=== PATIENT | male | born 1945 | race Caucasian/White ===

== ENCOUNTER 2017-03-05 14:40 | Inpatient (IN) | payer OTHER, MEDICARE ==
[2017-03-05 14:52] LABS: Glucose,Whole Blood 138 mg/dL (75-99)
[2017-03-05] MEDS ORDERED: SODIUM CHLORIDE 0.9% 1,000 ML IV STA (15:07)
--- NOTE | 2017-03-05 15:37 | CT ---
EXAMINATION TYPE: CT brain wo con DATE OF EXAM: 03/05/2017 COMPARISON: 09/06/2015 HISTORY: Patient complains of episodes of memory loss. CT DLP: 825.3 mGycm Automated exposure control for dose reduction was used. FINDINGS: Mild to moderate generalized degenerative change with faint periventricular low attenuation which cheli ears similar to the previous exam. Remote microvascular ischemia most likely etiology. No mass effect or midline shift. No acute intracranial hemorrhage. Calvarium intact. Intracranial vascular calcifications are seen. IMPRESSION: DEGENERATIVE AND NONSPECIFIC WHITE MATTER CHANGE. DIFFERENTIAL DIAGNOSIS WOULD INCLUDE REMOTE MICROVA SCULAR ISCHEMIA. CORRELATE CLINICALLY
--- NOTE | 2017-03-05 15:38 | XR ---
EXAMINATION TYPE: XR chest 2V DATE OF EXAM: 03/05/2017 COMPARISON: Prior chest x-ray 09/06/2015 HISTORY: Altered mental status TECHNIQUE: Frontal and lateral views of the chest are obtained. FINDINGS: There is no focal air space opacity, pleural effusion, or pneumothorax seen. The cardiac silhouette size is within normal limits. There are overlying cardiac leads and the patient is rotated . Prominent lung volumes suggests underlying COPD. The osseous structures are intact. IMPRESSION: No acute cardiopulmonary process.
[2017-03-05 15:39] LABS: Basophils % (A) 0 %; CH 29.4; CHCM 34.7; Eosinophils # (A) 0.1 k/uL (0-0.7); Eosinophils % (A) 1 %; HCT 48.5 % (39.0-53.0); HDW 2.58; HGB 17.1 gm/dL (13.0-17.5); Luc # (Auto) 0.21; Luc % (Auto) 2; Lymphocytes # (A) 2.6 k/uL (1.0-4.8); Lymphocytes % (A) 23 %; MCHC 35.3 g/dL (31.0-37.0); MCV 84.9 fL (80.0-100.0); Mean Platelet Volume 9.2; Monocytes # (A) 0.5 k/uL (0-1.0); Monocytes % (A) 5 %; Neutrophils # (A) 7.8 k/uL (1.3-7.7); Neutrophils % (A) 69 %; RBC 5.71 m/uL (4.30-5.90); RDW 14.4 % (11.5-15.5); WBC 11.3 k/uL (3.8-10.6); WBC (Perox) 11.38
[2017-03-05 15:47] LABS: ALT 38 U/L (21-72); AST 26 U/L (17-59); Alcohol <10 mg/dL; Alkaline Phosphatase 78 U/L (38-126); Amylase 129 U/L (30-110); Anion Gap 9 mmol/L; Blood Urea Nitrogen 12 mg/dL (9-20); Calcium 9.7 mg/dL (8.4-10.2); Carbon Dioxide 28 mmol/L (22-30); Chloride 102 mmol/L (98-107); Glucose 123 mg/dL (74-99); Magnesium 1.9 mg/dL (1.6-2.3); Non-African American GFR(MDRD) >60 (>60 ml/min/1.73 sqM); Potassium 3.7 mmol/L (3.5-5.1); Sodium 139 mmol/L (137-145); Total Bilirubin 0.7 mg/dL (0.2-1.3); Total Protein 7.6 g/dL (6.3-8.2)
[2017-03-05 15:49] LABS: Creatine Kinase 62 U/L (55-170); Partial Thromboplastin Time 24.6 sec (22.0-30.0); Prothrombin Time 10.2 sec (9.0-12.0)
[2017-03-05 16:03] LABS: Creatine Kinase MB 0.5 ng/mL (0.0-2.4); Troponin I <0.012 ng/mL (0.000-0.034)
--- NOTE | 2017-03-05 16:44 | ED ---
Neuro HPI - General Chief Complaint: Neuro Symptoms/Deficit Stated Complaint: memory loss/poss stroke Time Seen by Provider: 03/05/17 14:40 Source: patient, RN notes reviewed Mode of arrival: wheelchair Limitations: no limitations - History of Present Illness Is the patient presenting with stroke symptoms?: No Initial Comments: This is a 71-year-old male was brought in for evaluation for possible CVA. He had episode of confusion with lip smacking no definite tonic-clonic activity. His left arm became stiff this lasted less than 10 minutes he had an episode yesterday lasted 10 minutes with a similar episode in about 40 minutes prior to arrival he had a repeat episode of the same thing he was confused afterwards currently he is awake alert oriented 3. He had a workup in the past for possible stroke which was negative. He has no known history of seizure disorder. He does admit to drinking beer daily nothing out of the ordinary recently however no head trauma no fevers chills nausea vomiting sweats no head or neck pain he did have a frontal headache however earlier today no other complaints - Related Data Home Medications: Home Medications Medication Instructions Recorded Confirmed Albuterol Inhaler [Ventolin Hfa 2 puff INHALATION RT-Q6H PRN 09/06/15 03/05/17 Inhaler] Allopurinol [Zyloprim] 200 mg PO DAILY 09/06/15 03/05/17 Cholecalciferol [Vitamin D3] 400 unit PO DAILY 09/06/15 03/05/17 Fish Oil/Dha/Epa [Fish Oil 1,200 1 cap PO DAILY 09/06/15 03/05/17 mg Fish Oil] Lisinopril-Hctz 20-25 mg 1 tab PO DAILY 09/06/15 03/05/17 [Zestoretic 20-25] Multivit-Mins/Iron/Folic/Lycop 1 tab PO DAILY 09/06/15 03/05/17 [Centrum Men's Tablet] Atorvastatin [Lipitor] 40 mg PO HS 03/05/17 03/05/17 Budesonide [Pulmicort Flexhaler] 2 puff INHALATION RT-BID 03/05/17 03/05/17 HYDROcodone/APAP 10-325MG [[place] 1 tab PO QID PRN 03/05/17 03/05/17 10-325] amLODIPine [Norvasc] 10 mg PO DAILY 03/05/17 03/05/17 Allergies/Adverse Reactions: Allergies Allergy/AdvReac Type Severity Reaction Status Date / Time No Known Allergies Allergy Verified 03/05/17 15:32 Review of Systems ROS Statement: Those systems with pertinent positive or pertinent negative responses have been documented in the HPI. ROS Other: All systems not noted in ROS Statement are negative. General Exam - General Exam Comments Initial Comments: This is a well-developed well-nourished awake alert oriented times 3 male Limitations: no limitations General appearance: alert, in no apparent distress Head exam: Present: atraumatic, normocephalic, normal inspection Eye exam: Present: normal appearance, PERRL, EOMI. Absent: scleral icterus, conjunctival injection, periorbital swelling ENT exam: Present: normal exam, mucous membranes moist Neck exam: Present: normal inspection. Absent: tenderness, meningismus, lymphadenopathy Respiratory exam: Present: normal lung sounds bilaterally. Absent: respiratory distress, wheezes, rales, rhonchi, stridor Cardiovascular Exam: Present: regular rate, normal rhythm, normal heart sounds. Absent: systolic murmur, diastolic murmur, rubs, gallop, clicks GI/Abdominal exam: Present: soft, normal bowel sounds. Absent: distended, tenderness, guarding, rebound, rigid Extremities exam: Present: normal inspection, full ROM, normal capillary refill. Absent: tenderness, pedal edema, joint swelling, calf tenderness Back exam: Present: normal inspection Neurological exam: Present: alert, oriented X3, CN II-XII intact Psychiatric exam: Present: normal affect, normal mood Skin exam: Present: warm, dry, intact, normal color. Absent: rash Stroke MDM - Lab Data Result diagrams: 03/05/17 14:54 03/05/17 14:54 Lab Results 03/05/17 03/05/17 03/05/17 Range/Units 14:51 14:54 14:54 WBC (3.8-10.6) k/uL RBC (4.30-5.90) m/uL Hgb (13.0-17.5) gm/dL Hct (39.0-53.0) % MCV (80.0-100.0) fL MCH (25.0-35.0) pg MCHC (31.0-37.0) g/dL RDW (11.5-15.5) % Plt Count (150-450) k/uL Neutrophils % % Lymphocytes % % Monocytes % % Eosinophils % % Basophils % % Neutrophils # (1.3-7.7) k/uL Lymphocytes # (1.0-4.8) k/uL Monocytes # (0-1.0) k/uL Eosinophils # (0-0.7) k/uL Basophils # (0-0.2) k/uL PT (9.0-12.0) sec INR (<1.2) APTT (22.0-30.0) sec Sodium 139 (137-145) mmol/L Potassium 3.7 (3.5-5.1) mmol/L Chloride 102 (98-107) mmol/L Carbon Dioxide 28 (22-30) mmol/L Anion Gap 9 mmol/L BUN 12 (9-20) mg/dL Creatinine 0.67 (0.66-1.25) mg/dL Est GFR (MDRD) Af Amer >60 (>60 ml/min/1.73 sqM) Est GFR (MDRD) Non-Af >60 (>60 ml/min/1.73 sqM) Glucose 123 H (74-99) mg/dL POC Glucose (mg/dL) 138 H (75-99) mg/dL POC Glu Software Quality Specialist Rani Horner Calcium 9.7 (8.4-10.2) mg/dL Magnesium 1.9 (1.6-2.3) mg/dL Total Bilirubin 0.7 (0.2-1.3) mg/dL AST 26 (17-59) U/L ALT 38 (21-72) U/L Alkaline Phosphatase 78 (38-126) U/L Total Creatine Kinase 62 (55-170) U/L CK-MB (CK-2) 0.5 (0.0-2.4) ng/mL CK-MB (CK-2) Rel Index 0.8 Troponin I <0.012 (0.000-0.034) ng/mL Total Protein 7.6 (6.3-8.2) g/dL Albumin 4.6 (3.5-5.0) g/dL Amylase 129 H (30-110) U/L Lipase 1985 H (23-300) U/L TSH 2.950 (0.465-4.680) mIU/L Serum Alcohol <10 mg/dL 03/05/17 03/05/17 Range/Units 14:54 14:54 WBC 11.3 H (3.8-10.6) k/uL RBC 5.71 (4.30-5.90) m/uL Hgb 17.1 (13.0-17.5) gm/dL Hct 48.5 (39.0-53.0) % MCV 84.9 (80.0-100.0) fL MCH 30.0 (25.0-35.0) pg MCHC 35.3 (31.0-37.0) g/dL RDW 14.4 (11.5-15.5) % Plt Count 213 (150-450) k/uL Neutrophils % 69 % Lymphocytes % 23 % Monocytes % 5 % Eosinophils % 1 % Basophils % 0 % Neutrophils # 7.8 H (1.3-7.7) k/uL Lymphocytes # 2.6 (1.0-4.8) k/uL Monocytes # 0.5 (0-1.0) k/uL Eosinophils # 0.1 (0-0.7) k/uL Basophils # 0.0 (0-0.2) k/uL PT 10.2 (9.0-12.0) sec INR 1.0 (<1.2) APTT 24.6 (22.0-30.0) sec Sodium (137-145) mmol/L Potassium (3.5-5.1) mmol/L Chloride (98-107) mmol/L Carbon Dioxide (22-30) mmol/L Anion Gap mmol/L BUN (9-20) mg/dL Creatinine (0.66-1.25) mg/dL Est GFR (MDRD) Af Amer (>60 ml/min/1.73 sqM) Est GFR (MDRD) Non-Af (>60 ml/min/1.73 sqM) Glucose (74-99) mg/dL POC Glucose (mg/dL) (75-99) mg/dL POC Glu Software Quality Specialist ID Calcium (8.4-10.2) mg/dL Magnesium (1.6-2.3) mg/dL Total Bilirubin (0.2-1.3) mg/dL AST (17-59) U/L ALT (21-72) U/L Alkaline Phosphatase (38-126) U/L Total Creatine Kinase (55-170) U/L CK-MB (CK-2) (0.0-2.4) ng/mL CK-MB (CK-2) Rel Index Troponin I (0.000-0.034) ng/mL Total Protein (6.3-8.2) g/dL Albumin (3.5-5.0) g/dL Amylase (30-110) U/L Lipase (23-300) U/L TSH (0.465-4.680) mIU/L Serum Alcohol mg/dL - NIH Stroke Scale 1a. Level of Consciousness: (0) alert 1b. LOC Questions: (0) answers correctly 1c. LOC Commands: (0) performs tasks correctly 2. Best Gaze: (0) normal 3. Visual: (0) no visual loss 4. Facial Palsy: (0) normal symmetrical movement 5a. Motor Arm Left: (0) no drift 5b. Motor Arm Right: (0) no drift 6a. Motor Leg Left: (0) no drift 6b. Motor Leg Right: (0) no drift 7. Limb Ataxia: (0) absent 8. Sensory: (0) normal 9. Best Language: (0) no aphasia 10. Dysarthria: (0) normal 11. Extinction/Inattention: (0) no abnormality - Thrombolytic Inclusion/Exclusion Thrombolytic Contraindications: Rapidly Improving s/s - Medical Decision Making The patient remains awake alert oriented 3 at did discuss the case with the patient's multiple family members also did review the findings with family members. I also discussed case with Dr. Tipton who did come the emergency department see the patient. He will be admitted for evaluation by neurology the presentation is suspicious for seizure disorder. He doesn't just have evidence of pancreatitis likely on the basis of his alcohol consumption. - EKG Data -: EKG Interpreted by Me EKG shows normal: sinus rhythm (Sinus tachycardia rate of 105 DE interval 164 QRS 94 QT/QTC 3:[address]-T wave changes are seen.) Past Medical History Past Medical History: COPD, Hyperlipidemia, Hypertension, Memory Impairment, Pneumonia Additional Past Medical History / Comment(s): bronchitis, enlarged heart,tia's, exposure to agent orange History of Any Multi-Drug Resistant Organisms: None Reported Past Surgical History: No Surgical Hx Reported Additional Past Surgical History / Comment(s): pt denies any sx history Past Anesthesia/Blood Transfusion Reactions: No Reported Reaction Additional Past Anesthesia/Blood Transfusion Reaction / Comment(s): clausterphobia Past Psychological History: Depression Smoking Status: Current every day smoker - Past Family History Father Family Medical History: Myocardial Infarction ([place]) Additional Family Medical History / Comment(s): from mi at age 66 Mother Additional Family Medical History / Comment(s): mom is 86 and is heathyl- had gallbladder out. Course Vital Signs 03/05/17 03/05/17 03/05/17 14:41 15:41 17:00 Temperature 97.8 F 100.3 F H Pulse Rate 105 H 95 90 Respiratory 18 16 20 Rate Blood Pressure 186/88 160/87 164/86 O2 Sat by Pulse 94 L 96 96 Oximetry 03/05/17 18:00 Temperature Pulse Rate 92 Respiratory 20 Rate Blood Pressure 162/82 O2 Sat by Pulse 99 Oximetry - Reevaluation(s) Reevaluation #1: 03/05/17 18:50 Reevaluation patient reveals no further episodes. Reevaluation #2: 03/05/17 18:52 We did discuss smoking cessation we did discuss risks and benefits. The conversation lasted 3.1 minutes Disposition Clinical Impression: Seizure, Pancreatitis, Smoker Disposition: ADMITTED IP TO THIS [facility] Condition: Stable Referrals: Santiago Jackson DO [Primary Care Provider] - 1-2 days
[2017-03-05] MEDS ORDERED: NICOTINE 21MG/24HR PATCH TRANSDERM STA ×2 (17:46→18:08)
--- NOTE | 2017-03-05 17:57 | P.HPIM ---
History of Present Illness This is a 71-year-old male for an episode of confusion with lip smacking, and a stiff right arm. Patient apparently was having these symptoms never had a fall for about any year but they have become more frequent lately patient has almost 3 episodes.. patient has mild confusion lasting for few minutes after the episode denied any loss of bowel or bladder continence denied any loss of consciousness patient denied any aura. Patient denies any family history of brain tumors. Denied any fever but patient does have low-grade fever here in the hospital patient denied any abdominal pain does have elevated lipase. currently he is awake alert oriented 3. He had a workup in the past for possible stroke which was negative. He has no known history of seizure disorder. He does admit to drinking beer daily nothing out of the ordinary recently however no head trauma no fevers chills nausea vomiting sweats no head or neck pain he did have a frontal headache however earlier today no other complaints. Patient denied any dysuria patient had a cough runny nose. Chest x -ray did not show any significant abnormality UDA is still not available yet. Patient did have a low-grade fever. Review of Systems REVIEW OF SYSTEMS: CONSTITUTIONAL: No fever, no malaise, no fatigue. HEENT: No recent visual problems or hearing problems. Denied any sore throat. CARDIOVASCULAR: No chest pain, orthopnea, PND, no palpitations, no syncope. PULMONARY: No shortness of breath, no cough, no hemoptysis. GASTROINTESTINAL: No diarrhea, no nausea, no vomiting, no abdominal pain. Normoactive bowel sounds. NEUROLOGICAL: No weakness no weakness, no numbness, patient did have light headache. HEMATOLOGICAL: Denies any bleeding or petechiae. GENITOURINARY: Denies any burning micturition, frequency, or urgency. MUSCULOSKELETAL/RHEUMATOLOGICAL: Denies any joint pain, swelling, or any muscle pain. ENDOCRINE: Denies any polyuria or polydipsia. The rest of the 14-point review of systems is negative. Past Medical History Past Medical History: COPD, Hyperlipidemia, Hypertension, Memory Impairment, Pneumonia Additional Past Medical History / Comment(s): bronchitis, enlarged heart,tia's, exposure to agent orange History of Any Multi-Drug Resistant Organisms: None Reported Past Surgical History: No Surgical Hx Reported Additional Past Surgical History / Comment(s): pt denies any sx history Past Anesthesia/Blood Transfusion Reactions: No Reported Reaction Additional Past Anesthesia/Blood Transfusion Reaction / Comment(s): clausterphobia Past Psychological History: Depression Smoking Status: Current every day smoker - Past Family History Father Family Medical History: Myocardial Infarction ([place]) Additional Family Medical History / Comment(s): from mi at age 66 Mother Additional Family Medical History / Comment(s): mom is 86 and is heathyl- had gallbladder out. Medications and Allergies Home Medications Medication Instructions Recorded Confirmed Type Albuterol Inhaler [Ventolin Hfa 2 puff INHALATION RT-Q6H PRN 09/06/15 03/05/17 History Inhaler] Allopurinol [Zyloprim] 200 mg PO DAILY 09/06/15 03/05/17 History Cholecalciferol [Vitamin D3] 400 unit PO DAILY 09/06/15 03/05/17 History Fish Oil/Dha/Epa [Fish Oil 1,200 1 cap PO DAILY 09/06/15 03/05/17 History mg Fish Oil] Lisinopril-Hctz 20-25 mg 1 tab PO DAILY 09/06/15 03/05/17 History [Zestoretic 20-25] Multivit-Mins/Iron/Folic/Lycop 1 tab PO DAILY 09/06/15 03/05/17 History [Centrum Men's Tablet] Atorvastatin [Lipitor] 40 mg PO HS 03/05/17 03/05/17 History Budesonide [Pulmicort Flexhaler] 2 puff INHALATION RT-BID 03/05/17 03/05/17 History HYDROcodone/APAP 10-325MG [[place] 1 tab PO QID PRN 03/05/17 03/05/17 History 10-325] amLODIPine [Norvasc] 10 mg PO DAILY 03/05/17 03/05/17 History Allergies Allergy/AdvReac Type Severity Reaction Status Date / Time No Known Allergies Allergy Verified 03/05/17 15:32 Physical Exam Vitals: Vital Signs Temp Pulse Resp BP Pulse Ox 03/05/17 15:41 100.3 F H 95 16 160/87 96 03/05/17 14:41 97.8 F 105 H 18 186/88 94 L Intake and Output 03/05/17 03/05/17 03/05/17 06:59 14:59 22:59 Other: Weight 90.718 kg Patient Weight 03/06/17 06:59 Weight 90.718 kg PHYSICAL EXAMINATION: GENERAL: The patient is alert and oriented x3, not in any acute distress. Well developed, well nourished. HEENT: Pupils are round and equally reacting to light. EOMI. No scleral icterus. No conjunctival pallor. Normocephalic, atraumatic. No pharyngeal erythema. No thyromegaly. CARDIOVASCULAR: S1 and S2 present. No murmurs, rubs, or gallops. PULMONARY: Chest is clear to auscultation, no wheezing or crackles. ABDOMEN: Soft, nontender, nondistended, normoactive bowel sounds. No palpable organomegaly. MUSCULOSKELETAL: No joint swelling or deformity. EXTREMITIES: No cyanosis, clubbing, or pedal edema. NEUROLOGICAL: Gross neurological examination did not reveal any focal deficits. SKIN: No rashes. Results CBC & Chem 7: 03/05/17 14:54 03/05/17 14:54 Labs: Abnormal Lab Results - Last 24 Hours (Table) 03/05/17 03/05/17 03/05/17 Range/Units 14:51 14:54 14:54 WBC 11.3 H (3.8-10.6) k/uL Neutrophils # 7.8 H (1.3-7.7) k/uL Glucose 123 H (74-99) mg/dL POC Glucose (mg/dL) 138 H (75-99) mg/dL Amylase 129 H (30-110) U/L Lipase 1985 H (23-300) U/L Assessment and Plan Plan: #1 possible partial seizures, new onset: Patient will be on seizure precautions , patient will be started on a when necessary Ativan for seizures. Sleep and awake EEG will be obtained MRI of the head will be up and to rule out any infectious causes are any mass lesions. Patient does not have any neck rigidity and doesn't have any signs of encephalitis or meningitis. 2 low-grade fever with leukocytosis: Source of sepsis is unknown patient is undergoing further evaluation of blood culture chest x-ray within normal limits. Urine culture will be obtained. 3 elevated lipase secondary to regular alcohol use may have pancreatitis patient will be continued on IV fluids and Protonix will be started. Nicotine abuse counseling was provided 5 hypertension 6 hyperlipidemia
[2017-03-05] MEDS ORDERED: HYDROcodone/APAP 10-325MG 1 EACH TAB PO ONE (18:46)
[2017-03-05] MEDS ORDERED: ALBUTEROL NEBULIZED 2.5 MG/3 ML INHALATION PRN (18:54)
[2017-03-05 19:36] LABS: Appearance,Urine Clear (Clear); Bilirubin,Urine Negative (Negative); Glucose,Urine (UA) Negative (Negative); Ketones,Urine Negative (Negative); Leukocyte Esterase,Urine Negative (Negative); Nitrite,Urine Negative (Negative); PH, Urine 6.5 (5.0-8.0); Protein,Urine Negative (Negative); Specific Gravity,Urine 1.006 (1.001-1.035); UA Billing (MACRO vs. MICRO) CHEM; Urobilinogen,Urine <2.0 mg/dL (<2.0)
[2017-03-05] MEDS: BUDESONIDE 1 MG/2 ML NEBU INHALATION SCH (20:45)
[2017-03-05 21:26] VITALS: BMI 38.2
[2017-03-05] MEDS: SODIUM CHLORIDE 0.9% 1,000 ML IV SCH (21:52)
[2017-03-05] MEDS: ASPIRIN 325 MG TAB PO SCH (21:52)
[2017-03-05] MEDS: ATORVASTATIN 40 MG TAB PO SCH (21:52)
[2017-03-05] MEDS: FAMOTIDINE 20 MG TAB PO SCH (21:53)
[2017-03-06] MEDS: HYDROcodone/APAP 10-325MG 1 EACH TAB PO PRN ×4 (01:21→23:31)
[2017-03-06] MEDS: SODIUM CHLORIDE 0.9% 1,000 ML IV SCH ×2 (01:24→16:10)
[2017-03-06 07:31] LABS: Cholesterol 221 mg/dL (<200); HDL Cholesterol 41 mg/dL (40-60); Triglycerides 132 mg/dL (<150)
[2017-03-06] MEDS: amLODIPine 10 MG TAB PO SCH ×3 (07:56→13:04)
[2017-03-06] MEDS: NICOTINE 21MG/24HR PATCH TRANSDERM SCH (07:57)
[2017-03-06] MEDS: ALLOPURINOL 100 MG TAB PO SCH (07:57)
[2017-03-06] MEDS: MULTIVITAMINS, THERA 1 EACH TAB PO SCH (07:58)
[2017-03-06] MEDS: LISINOPRIL-HCTZ 20-25 MG 1 EACH TAB PO SCH (07:58)
[2017-03-06] MEDS: FAMOTIDINE 20 MG TAB PO SCH ×2 (07:58→20:52)
[2017-03-06] MEDS: CHOLECALCIFEROL 400 UNIT TAB PO SCH (07:59)
[2017-03-06] MEDS ORDERED: NON-FORMULARY DRUG (Fish Oil/Dha/Epa [Fish Oil 1,200 Mg Fish Oil] 1 CAP) PO SCH (09:00)
[2017-03-06 09:20] LABS: CH 29.6; CHCM 33.5; HDW 2.53; HGB 15.3 gm/dL (13.0-17.5); MCH 29.6 pg (25.0-35.0); MCHC 33.2 g/dL (31.0-37.0); MCV 89.1 fL (80.0-100.0); Mean Platelet Volume 9.2; RBC 5.17 m/uL (4.30-5.90); RDW 14.6 % (11.5-15.5); WBC 8.8 k/uL (3.8-10.6)
[2017-03-06] MEDS: BUDESONIDE 1 MG/2 ML NEBU INHALATION SCH ×2 (09:23→20:35)
[2017-03-06 09:42] LABS: Anion Gap 4 mmol/L; Blood Urea Nitrogen 12 mg/dL (9-20); Carbon Dioxide 31 mmol/L (22-30); Chloride 106 mmol/L (98-107); Glucose 89 mg/dL (74-99); Non-African American GFR(MDRD) >60 (>60 ml/min/1.73 sqM); Potassium 3.9 mmol/L (3.5-5.1); Sodium 141 mmol/L (137-145)
--- NOTE | 2017-03-06 10:21 | MR ---
EXAMINATION TYPE: MR brain wo/w con DATE OF EXAM: 03/06/2017 COMPARISON: CT brain from yesterday. HISTORY: New onset seizure TECHNIQUE: Multiplanar, multisequence images of the brain and brainstem is performed without and with IV contras t, utilizing 20 mL intravenous MultiHance . FINDINGS: Diffusion weighted images demonstrate no evidence of a recent infarct or other diffusion ab normality. There is no worrisome extra-axial fluid collection. There is ventricular and sulcal promi nence consistent with mild diffuse age-related cerebral atrophy. There are scattered foci of T2 hyper intensity seen throughout the white matter bilaterally. Approximately 40 scattered lesions are presen t. 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 T2 coronal weighted images show hippocampal gyri to appear symmetric and felt within normal limits. Midline structures demonstrate normal morphology. The craniocervical junction appears within normal limits. Post contrast images demonstrate no abnormal enhancement. The dural venous sinuses appear pa tent. The visualized sinuses are clear and the globes are intact. IMPRESSION: There is mild diffuse cerebral atrophy and moderate chronic small vessel ischemic change appreciated. No significant finding is present to account for patient's symptoms of new onset seizure .
[2017-03-06] MEDS: ASPIRIN 325 MG TAB PO SCH (11:20)
--- NOTE | 2017-03-06 11:24 | US ---
EXAMINATION TYPE: US carotid duplex BILAT DATE OF EXAM: 03/06/2017 COMPARISON: Carotid ultrasound September 06, 2015 CLINICAL HISTORY: Stenosis. Syncope, seizures EXAM MEASUREMENTS: RIGHT: Peak Systolic Velocity (PSV) cm/sec ----- Right CCA: 64.7 ----- Right ICA: 72.4 ----- Right ECA: 72.4 ICA/CCA ratio: 1.1 RIGHT: End Diastole cm/sec ----- Right CCA: 15.3 ----- Right ICA: 30.7 ----- Right ECA: 13.1 LEFT: Peak Systolic Velocity (PSV) cm/sec ----- Left CCA: 85.8 ----- Left ICA: 84.5 ----- Left ECA: 82.2 ICA/CCA ratio: 1.0 LEFT: End Diastole cm/sec ----- Left CCA: 22.3 ----- Left ICA: 31.8 ----- Left ECA: 11.1 VERTEBRALS (direction of flow): Right Vertebral: Antegrade Left Vertebral: Antegrade No significant velocity elevations Grayscale images show minimal eccentric plaque at carotid bulb level bilaterally. Velocity measuremen ts and ratios remain within normal limits bilaterally. IMPRESSION: No hemodynamically significant stenosis is seen in either internal carotid artery.
--- NOTE | 2017-03-06 13:16 | P.DS ---
Providers Date of admission: 03/05/17 18:52 Attending physician: Ade Tipton Consults: 03/05/17 18:53 Consult Physician Routine Consulting Provider: Jenny Carl Consult Reason/Comments: Suspected seizure disorder Do you want consulting provider notified?: Yes Primary care physician: Santiago [facility] Course: Patient was admitted for possible simple partial seizure. Patient to be evaluated by neurology patient had an MRI with contrast which did not show any significant lesions. Patient will need any EEG unfortunately because of the weekend this is not being done as an inpatient. Patient will follow with neurology for outpatient EEG. Patient is insisting on discharge at this time. Patient will be discharged today once cleared by neurology and after there. Decision regarding antiseizure medication will be left in urology. And has nonspecific elevation of lipase without any symptoms of pancreatitis patient is an alcoholic extensive counseling regarding alcohol use is provided. 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 Patient will not be discharged on any antibiotics. 3 elevated lipase secondary to regular alcohol. patient doesn't have any symptoms of pancreatitis. Nicotine abuse counseling was provided 5 hypertension 6 hyperlipidemia Patient Condition at Discharge: Stable Plan - Discharge Summary New Discharge Prescriptions: No Action Allopurinol [Zyloprim] 200 mg PO DAILY Albuterol Inhaler [Ventolin Hfa Inhaler] 2 puff INHALATION RT-Q6H PRN PRN Reason: Shortness Of Breath Multivit-Mins/Iron/Folic/Lycop [Centrum Men's Tablet] 1 tab PO DAILY Cholecalciferol [Vitamin D3] 400 unit PO DAILY Lisinopril-Hctz 20-25 mg [Zestoretic 20-25] 1 tab PO DAILY Fish Oil/Dha/Epa [Fish Oil 1,200 mg Fish Oil] 1 cap PO DAILY amLODIPine [Norvasc] 10 mg PO DAILY Budesonide [Pulmicort Flexhaler] 2 puff INHALATION RT-BID HYDROcodone/APAP 10-325MG [[place] 10-325] 1 tab PO QID PRN PRN Reason: Pain Atorvastatin [Lipitor] 40 mg PO HS Discharge Medication List Albuterol Inhaler [Ventolin Hfa Inhaler] 2 puff INHALATION RT-Q6H PRN 09/06/15 [ History] Allopurinol [Zyloprim] 200 mg PO DAILY 09/06/15 [History] Cholecalciferol [Vitamin D3] 400 unit PO DAILY 09/06/15 [History] Fish Oil/Dha/Epa [Fish Oil 1,200 mg Fish Oil] 1 cap PO DAILY 09/06/15 [History] Lisinopril-Hctz 20-25 mg [Zestoretic 20-25] 1 tab PO DAILY 09/06/15 [History] Multivit-Mins/Iron/Folic/Lycop [Centrum Men's Tablet] 1 tab PO DAILY 09/06/15 [ History] Atorvastatin [Lipitor] 40 mg PO HS 03/05/17 [History] Budesonide [Pulmicort Flexhaler] 2 puff INHALATION RT-BID 03/05/17 [History] HYDROcodone/APAP 10-325MG [[place] 10-325] 1 tab PO QID PRN 03/05/17 [History] amLODIPine [Norvasc] 10 mg PO DAILY 03/05/17 [History] Follow up Appointment(s)/Referral(s): Santiago Jackson DO [Primary Care Provider] - 1-2 days Discharge Disposition: HOME SELF-CARE
[2017-03-06] MEDS ORDERED: levETIRAcetam IV 1,000 MG in SALINE 1 100ML.BAG IVPB STA (15:13)
[2017-03-06] MEDS: ATORVASTATIN 40 MG TAB PO SCH (20:50)
--- NOTE | 2017-03-06 21:55 | P.CNNES ---
History of Present Illness Consult date: 03/05/17 Requesting physician: Homero John Reason for Consult: Seizure Chief complaint: Mental status/seizure History of Present Illness: Patient is a 71-year-old male who was brought to the ED for possible CVA. Patient has a history of an episode of confusion with lip smacking but no tonic- clonic activity. His left arm would become stiff and lasted less than 10 minutes then had fatigue and confusion afterward for approximately 15 minutes. Patient had 2 episodes prior to presenting at the ED. Patient also states that he has altered taste sensation prior to events. Family states that during the events, the patient is non-responsive to verbal or physical stimuli. Patient's daughter is a neurodiagnostic surveillance technician and states that she witnessed one of the events and it is consistent with seizure. Episodes have been occurring in varying intensity, frequency and duration over the last 2 years, primarily occurring during nighttime hours or sleeping. In the last 2 weeks, the occurrences have now started during daytime hours and are progressing in character. Patient has not had any significant medication changes surrounding each event and the last medication change was greater than 2 weeks ago and involved blood pressure medication. Patient has been under significant personal stress in the last several days due to a of a close family member /friend and caring for his bedridden . Patient is also known to use alcohol intermittently during stress. On contact, the patient was supine in bed and resting in no acute distress, was alert and oriented 3. Patient's daughter was present at the bedside along with his mother who also provided further background information. Review of Systems Systems not noted in HPI or negative Past Medical History Past Medical History: COPD, Hyperlipidemia, Hypertension, Memory Impairment, Pneumonia Additional Past Medical History / Comment(s): bronchitis, tia's, exposure to agent orange History of Any Multi-Drug Resistant Organisms: None Reported Past Surgical History: No Surgical Hx Reported Additional Past Surgical History / Comment(s): pt denies any sx history Past Anesthesia/Blood Transfusion Reactions: No Reported Reaction Additional Past Anesthesia/Blood Transfusion Reaction / Comment(s): clausterphobia Past Psychological History: Depression Smoking Status: Current every day smoker Past Alcohol Use History: Daily Additional Past Alcohol Use History / Comment(s): 2-3 beers per day, more once per week Past Drug Use History: None Reported - Past Family History Father Family Medical History: Myocardial Infarction ([place]) Additional Family Medical History / Comment(s): from [place] at age 66 Mother Additional Family Medical History / Comment(s): mom is 88 and is healthy- had gallbladder out. Medications and Allergies Home Medications Medication Instructions Recorded Confirmed Type Albuterol Inhaler [Ventolin Hfa 2 puff INHALATION RT-Q6H PRN 09/06/15 03/05/17 History Inhaler] Allopurinol [Zyloprim] 200 mg PO DAILY 09/06/15 03/05/17 History Cholecalciferol [Vitamin D3] 400 unit PO DAILY 09/06/15 03/05/17 History Fish Oil/Dha/Epa [Fish Oil 1,200 1 cap PO DAILY 09/06/15 03/05/17 History mg Fish Oil] Lisinopril-Hctz 20-25 mg 1 tab PO DAILY 09/06/15 03/05/17 History [Zestoretic 20-25] Multivit-Mins/Iron/Folic/Lycop 1 tab PO DAILY 09/06/15 03/05/17 History [Centrum Men's Tablet] Atorvastatin [Lipitor] 40 mg PO HS 03/05/17 03/05/17 History Budesonide [Pulmicort Flexhaler] 2 puff INHALATION RT-BID 03/05/17 03/05/17 History HYDROcodone/APAP 10-325MG [[place] 1 tab PO QID PRN 03/05/17 03/05/17 History 10-325] amLODIPine [Norvasc] 10 mg PO DAILY 03/05/17 03/05/17 History Allergies Allergy/AdvReac Type Severity Reaction Status Date / Time No Known Allergies Allergy Verified 03/05/17 15:32 Physical Examination - Vital Signs Vital Signs: Vital Signs Temp Pulse Pulse Resp BP Pulse Ox 03/06/17 20:43 76 03/06/17 20:35 72 03/06/17 15:03 97.3 F L 78 16 163/97 96 03/06/17 12:17 70 16 193/87 96 03/06/17 11:17 98.0 F 66 16 175/86 97 03/06/17 07:51 97.6 F 70 18 169/85 99 03/06/17 04:00 66 18 163/86 94 L 03/06/17 01:02 96.6 F L 86 16 126/70 96 03/06/17 00:00 75 16 134/69 97 Intake and Output 03/06/17 03/06/17 03/06/17 06:59 14:59 22:59 Intake Total 360 180 Balance 360 180 Intake: Oral 360 180 Other: # Voids 1 1 Weight 113.9 kg Constitutional: AOx3, cooperative HEENT: NC/AT, no facial asymmetry is seen. Throat: Supple, no masses Respiratory: No increased work of breathing Cardiac: Regular rate and Rhythm GI: non tender, non distended Musculoskeletal: Aircraft Refueler strengths are equal bilaterally 5/5, Lower extremity strengths are equal bilaterally at 5/5. Neurological: CN II-XII in tact, patient was AOx3, speech and language are normal, no unilateralizing weakness, no seizure activity note on physical exam. Sensation was normal. Integementary: no rash, no erythema Psychiatric: mood and affect appropriate Results EEG ordered, MRI of the brain negative noted chronic small vessel ischemic disease, CT brain noted moderate small vessel ischemia. - Laboratory Findings CBC and BMP: 03/06/17 06:31 03/06/17 06:31 Abnormal Lab Findings: Abnormal Labs 03/05/17 03/05/17 03/05/17 14:51 14:54 14:54 WBC 11.3 H Neutrophils # 7.8 H Carbon Dioxide Glucose 123 H POC Glucose (mg/dL) 138 H Cholesterol LDL Cholesterol, Calc Amylase 129 H Lipase 1985 H 03/06/17 03/06/17 06:31 06:31 WBC Neutrophils # Carbon Dioxide 31 H Glucose POC Glucose (mg/dL) Cholesterol 221 H LDL Cholesterol, Calc 154 H Amylase Lipase Assessment and Plan (1) Altered mental status, unspecified Status: Acute (2) Hyperlipidemia Status: Acute (3) Seizure Status: Acute Plan: Seizure/Altered mental status: Patient's current status is most likely related to new onset seizure. Symptoms are consistent with prodrome, partial seizure with postictal period (partial complex seizure). CT and MRI of the brain note chronic small vessel ischemia. EEG is ordered. Patient started on 1000 mg IV Keppra followed by 750 mg of Keppra twice a day. Continue neuro checks every shift. Hyperlipidemia: Patient is currently taking 325 mg aspirin, Lipitor 40 mg. We will discontinue the patient's aspirin and start Plavix 75 mg daily at bedtime and continue Lipitor as previously prescribed. Status: Neurology will continue to follow him provide updates as needed or warranted. I discussed the patient's pertinent medical information with Dr. Carl. He agrees with the plan of care as implemented.
[2017-03-07] MEDS: SODIUM CHLORIDE 0.9% 1,000 ML IV SCH ×2 (02:54→14:53)
[2017-03-07 06:38] LABS: Glucose,Whole Blood 101 mg/dL (75-99)
[2017-03-07 07:41] VITALS: RESP 16; TEMP 96.9
[2017-03-07] MEDS: amLODIPine 10 MG TAB PO SCH (07:47)
[2017-03-07] MEDS: HYDROcodone/APAP 10-325MG 1 EACH TAB PO PRN (07:48)
[2017-03-07] MEDS: ALLOPURINOL 100 MG TAB PO SCH (07:49)
[2017-03-07] MEDS: LISINOPRIL-HCTZ 20-25 MG 1 EACH TAB PO SCH (07:49)
[2017-03-07] MEDS: MULTIVITAMINS, THERA 1 EACH TAB PO SCH (07:49)
[2017-03-07] MEDS: FAMOTIDINE 20 MG TAB PO SCH (07:51)
[2017-03-07] MEDS: NICOTINE 21MG/24HR PATCH TRANSDERM SCH (07:52)
[2017-03-07] MEDS: CHOLECALCIFEROL 400 UNIT TAB PO SCH (07:52)
[2017-03-07] MEDS ORDERED: CLOPIDOGREL 75 MG TAB PO SCH (09:00)
[2017-03-07] MEDS: BUDESONIDE 1 MG/2 ML NEBU INHALATION SCH (09:53)
[2017-03-07] MEDS ORDERED: DOCUSATE 100 MG CAP PO SCH (10:00)
[2017-03-07 11:13] VITALS: BP 141/80; PULSE 61
--- NOTE | 2017-03-07 15:08 | P.DS ---
Providers Date of admission: 03/05/17 18:52 Attending physician: Ade Tipton Consults: 03/05/17 18:53 Consult Physician Routine Consulting Provider: Jenny Carl Consult Reason/Comments: Suspected seizure disorder Do you want consulting provider notified?: Yes [facility] Course: Admitted for complex partial also she's her. Patient was started on Keppra. Patient had a negative MRI. If cleared by neurology patient will be discharged on 750 mg of Keppra #1 possible partial seizures, new onset 2 low-grade fever with leukocytosis: No so-so sepsis was appreciated, patient is clinically doing well no fever since yesterday evening. Patient will not be discharged on any antibiotics. 3 elevated lipase secondary to regular alcohol. patient doesn't have any symptoms of pancreatitis. Nicotine abuse counseling was provided 5 hypertension 6 hyperlipidemia Patient Condition at Discharge: Stable Plan - Discharge Summary New Discharge Prescriptions: New Clopidogrel [Plavix] 75 mg PO DAILY #30 tab levETIRAcetam [Keppra] 750 mg PO Q12HR #60 tab Continue Allopurinol [Zyloprim] 200 mg PO DAILY Albuterol Inhaler [Ventolin Hfa Inhaler] 2 puff INHALATION RT-Q6H PRN PRN Reason: Shortness Of Breath Multivit-Mins/Iron/Folic/Lycop [Centrum Men's Tablet] 1 tab PO DAILY Cholecalciferol [Vitamin D3] 400 unit PO DAILY Lisinopril-Hctz 20-25 mg [Zestoretic 20-25] 1 tab PO DAILY Fish Oil/Dha/Epa [Fish Oil 1,200 mg Fish Oil] 1 cap PO DAILY amLODIPine [Norvasc] 10 mg PO DAILY Budesonide [Pulmicort Flexhaler] 2 puff INHALATION RT-BID HYDROcodone/APAP 10-325MG [[place] 10-325] 1 tab PO QID PRN PRN Reason: Pain Atorvastatin [Lipitor] 40 mg PO HS Discharge Medication List Albuterol Inhaler [Ventolin Hfa Inhaler] 2 puff INHALATION RT-Q6H PRN 09/06/15 [ History] Allopurinol [Zyloprim] 200 mg PO DAILY 09/06/15 [History] Cholecalciferol [Vitamin D3] 400 unit PO DAILY 09/06/15 [History] Fish Oil/Dha/Epa [Fish Oil 1,200 mg Fish Oil] 1 cap PO DAILY 09/06/15 [History] Lisinopril-Hctz 20-25 mg [Zestoretic 20-25] 1 tab PO DAILY 09/06/15 [History] Multivit-Mins/Iron/Folic/Lycop [Centrum Men's Tablet] 1 tab PO DAILY 09/06/15 [ History] Atorvastatin [Lipitor] 40 mg PO HS 03/05/17 [History] Budesonide [Pulmicort Flexhaler] 2 puff INHALATION RT-BID 03/05/17 [History] HYDROcodone/APAP 10-325MG [[place] 10-325] 1 tab PO QID PRN 03/05/17 [History] amLODIPine [Norvasc] 10 mg PO DAILY 03/05/17 [History] Clopidogrel [Plavix] 75 mg PO DAILY #30 tab 03/07/17 [Rx] levETIRAcetam [Keppra] 750 mg PO Q12HR #60 tab 03/07/17 [Rx] Follow up Appointment(s)/Referral(s): Jenny Carl MD [STAFF PHYSICIAN] - 1 Week Santiago Jackson DO [Primary Care Provider] - 3 Days Discharge Disposition: HOME SELF-CARE
--- NOTE | 2017-03-07 19:33 | P.PN ---
Subjective Principal diagnosis: Altered mental status/seizurenew onset Patient is a 71-year-old being followed by neurology for seizure. Patient had a history of an episode of confusion with lip smacking but no tonic-clonic activity. His left arm would become stiff and would then become spastic and tremor which lasted less than 10 minutes, then patient had fatigue and confusion afterward for approximately 15 minutes. Patient had 2 episodes prior to presenting at the ED. Patient also states he has altered taste sensation prior to events. Family states that during the events, the patient is nonresponsive to verbal or physical stimuli. Patient's daughter is a neurodiagnostic predictive maintenance technician and states that she witnessed one of the events and is his consistent with seizure in her opinion. Episodes of been occurring and varying intensity, frequency and duration over the last 2 years, primarily occurring during nighttime hours or sleeping. The last 2 weeks, there are occurrences have now started during daytime hours and are progressing in character. Patient is not any significant medication changes surrounding each event in the last medication changes greater than 2 weeks ago and involved blood pressure medication. Patient has been under significant personal stress in the last several days due to of a close family member/friend and caring for his bedridden . Patient is also known use alcohol intermittently during stress. March 06, 2017: Patient was supine in bed, resting in no acute distress, was alert and oriented 3. Patient's daughter was present at the bedside along with his mother who also provided further background information. March 07, 2017: MRI of the brain and CT of the brain noted chronic small vessel ischemia and cerebral atrophy. EEG was ordered but has not been taken. It is scheduled for tomorrow. Patient was very persistent that he would not stay overnight for testing tomorrow. At contact, the patient was supine in bed, alert and oriented 3 and in no acute distress. Objective - Vital Signs Vital signs: Vital Signs Temp 96.9 F L 03/07/17 11:11 Pulse 61 03/07/17 11:11 Resp 16 03/07/17 11:11 BP 141/80 03/07/17 11:11 Pulse Ox 96 03/07/17 11:11 Intake & Output 03/07/17 03/07/17 03/08/17 06:59 18:59 06:59 Intake Total 1000 780 Balance 1000 780 Weight 112.1 kg Intake: IV 1000 Sodium Chloride 0.9% 1, 1000 000 ml @ 100 mls/hr IV . Q10H MUNA Rx#:[id number] Oral 780 Other: # Voids 2 3 - Exam Constitutional: AOx3, cooperative HEENT: NC/AT, no facial asymmetry is seen. Throat: Supple, no masses Respiratory: No increased work of breathing Cardiac: Regular rate and Rhythm GI: non tender, non distended Musculoskeletal: Cane Pusher strengths are equal bilaterally 5/5, Lower extremity strengths are equal bilaterally at 5/5. Neurological: CN II-XII in tact, patient was AOx3, speech and language are normal, no unilateralizing weakness, no seizure activity note on physical exam. Sensation was normal. Integementary: no rash, no erythema Psychiatric: mood and affect appropriate - Labs CBC & Chem 7: 03/06/17 06:31 03/06/17 06:31 Labs: Abnormal Lab Results - Last 24 Hours (Table) 03/07/17 Range/Units 06:29 POC Glucose (mg/dL) 101 H (75-99) mg/dL Assessment and Plan (1) Altered mental status, unspecified Status: Acute (2) Hyperlipidemia Status: Acute (3) Seizure Status: Acute Plan: Seizure/Altered mental status: Patient's current status is most likely related to new onset seizure. Symptoms are consistent with prodrome, partial seizure with postictal period (partial complex seizure). CT and MRI of the brain note chronic small vessel ischemia And cerebral atrophy. EEG is ordered for tomorrow. Patient has continued 750 mg of Keppra twice a day and has had no new occurrences since intitiation. Continue neuro checks every shift. Hyperlipidemia: Continue Plavix 75 mg daily at bedtime and continue Lipitor as previously prescribed. Status: Neurology will continue to follow him provide updates as needed or warranted. I discussed the patient's pertinent medical information with Dr. Carl. He agrees with the plan of care as implemented.
== END 2017-03-07 17:00 | disposition home or self-care (01) | DRG 101 ==
LOC: EC 14:40 → 6SEL 18:52
PROVIDERS: ADMIT Internal Medicine; ATTEND Internal Medicine
DX: G40.209 Localization-related (focal) (partial) symptomatic epilepsy and epileptic syndromes with complex partial seizures, not intractable, without status epilepticus (principal); J44.9 Chronic obstructive pulmonary disease, unspecified; I10 Essential (primary) hypertension; F32.9 Major depressive disorder, single episode, unspecified; E78.5 Hyperlipidemia, unspecified; D72.829 Elevated white blood cell count, unspecified; I67.9 Cerebrovascular disease, unspecified; R29.700 NIHSS score 0; R74.8 Abnormal levels of other serum enzymes; F10.20 Alcohol dependence, uncomplicated; R00.0 Tachycardia, unspecified; R50.9 Fever, unspecified; F40.240 Claustrophobia; R51 Headache; F17.200 Nicotine dependence, unspecified, uncomplicated; Z63.6 Dependent relative needing care at home; Z63.4 Disappearance and death of family member; Z86.19 Personal history of other infectious and parasitic diseases; Z87.09 Personal history of other diseases of the respiratory system; Z77.098 Contact with and (suspected) exposure to other hazardous, chiefly nonmedicinal, chemicals; Z86.73 Personal history of transient ischemic attack (TIA), and cerebral infarction without residual deficits; Z79.899 Other long term (current) drug therapy; Z82.49 Family history of ischemic heart disease and other diseases of the circulatory system; Z79.51 Long term (current) use of inhaled steroids; Z71.6 Tobacco abuse counseling; Z71.41 Alcohol abuse counseling and surveillance of alcoholic; Z79.891 Long term (current) use of opiate analgesic; Y90.0 Blood alcohol level of less than 20 mg/100 ml
CPT/HCPCS: 36415; 70450; 70553; 71020; 80048; 80053; 80061; 80177; 80320; 81003; 82150; 82550; 82553; 83690; 83735; 84443; 84484; 85025; 85027; 85610; 85730; 93005; 93880; 94640

== ENCOUNTER → 2017-12-07 | Outpatient (CLI) | payer OTHER, MEDICARE | END | disposition home or self-care (01) | LOC: LABWHC1 08:04 | PROVIDERS: ATTEND Psychiatry & Neurology Neurology | DX: G40.009 Localization-related (focal) (partial) idiopathic epilepsy and epileptic syndromes with seizures of localized onset, not intractable, without status epilepticus (principal) | CPT/HCPCS: 36415; 80177 ==

== ENCOUNTER → 2018-04-07 | Outpatient (CLI) | payer OTHER ==
--- NOTE | 2018-04-07 16:00 | CT ---
EXAMINATION TYPE: CT chest w con DATE OF EXAM: 04/07/2018 COMPARISON: None HISTORY: Abnormal findings in lung field CT DLP: 640.20 mGycm Automated exposure control for dose reduction was used. CONTRAST: CT scan of the chest is performed with IV Contrast, patient injected with 100 mL of Isovue 300. FINDINGS: LUNGS: The lungs are grossly clear, there is no concerning parenchymal mass or nodule identified. T here is no pleural effusion or pneumothorax seen. The tracheobronchial tree is patent. Mild left upp er lobe subpleural fibrosis. Parenchymal scarring in the region of the lingula and left lower lobe. MEDIASTINUM: There are no greater than 1 cm hilar or mediastinal lymph nodes. No pericardial effusi on is seen. Thoracic aorta is of normal caliber. The heart is not enlarged. UPPER ABDOMEN: No significant abnormality appreciated. OTHER: No additional significant abnormality is seen. IMPRESSION: 1. No evidence for mass or infiltrate.
== END | disposition home or self-care (01) ==
LOC: RADCTMAIN 15:13
DX: R91.8 Other nonspecific abnormal finding of lung field (principal)
CPT/HCPCS: 71260; Q9967

== ENCOUNTER → 2018-07-11 | Outpatient (CLI) | payer OTHER ==
[2018-07-11 12:30] LABS: Blood Urea Nitrogen 14 mg/dL (9-20)
--- NOTE | 2018-07-11 13:36 | CT ---
EXAMINATION TYPE: CT soft tissue neck wo/w con DATE OF EXAM: 07/11/2018 COMPARISON: None HISTORY: Lump to left side of neck. CT DLP: 1491 mGycm CONTRAST: CT scan of the neck is performed without and with IV Contrast, patient injected with 100 mL of Isovue 300. Contrast enhanced CT of the neck was performed from the skull base through the lung apices. Markers p laced at the site of clinical concern. AIRWAY: The supraglottic, glottic, and subglottic portions of the airway appear patent and free of mass. SALIVARY GLANDS: The submandibular and parotid glands are free of mass or inflammatory process. THYROID GLAND: No nodules or masses seen. LYMPH NODES: At the site of clinical concern There is an enlarged partially necrotic lymph node left internal jugular chain which measures 3.7 x 2.5 x 2.3 cm. No additional adenopathy greater than 1 cm identified. LUNG APICES: No nodule or mass is seen. OTHER: Vascular structures are patent. No significant degenerative change of the cervical spine. N o abscess seen. IMPRESSION:
== END | disposition home or self-care (01) ==
LOC: RADCTMAIN 11:57
DX: M99.81 Other biomechanical lesions of cervical region (principal)
CPT/HCPCS: 82565; 84520; 70492; 36415; Q9967

== ENCOUNTER → 2018-08-27 | Outpatient (CLI) | payer OTHER ==
--- NOTE | 2018-08-29 06:56 | PE ---
EXAMINATION TYPE: PET CT fusion skull to thigh DATE OF EXAM: 08/27/2018 COMPARISON: CT chest April 07, 2018. CT neck July 11, 2018. HISTORY: Head and neck cancer initial staging study after recent left neck biopsy. TECHNIQUE: Following the intravenous administration of 10.632 mCi of F-18 FDG, whole body images are performed from the skull base to the midthigh. Images are reviewed on the computer in the coronal, axial, and sagittal planes. Reconstructed rotating images are created on independent workstation and reviewed on the computer. A noncontrast CT is performed in conjunction with the PET scan. Dedicate d PET/CT imaging of the neck is also performed. SCAN: Initial Scan FINDINGS: SKULL BASE AND NECK: There is a small asymmetric round subcentimeter focus of increased hypermetabol ic uptake left tongue base laterally measuring axial image 45, max SUV is 8.83. There is redemonstration of abnormal left neck lymph node with anterior hypodense area at level of river perior hyoid bone measuring 2.9 x 2.8 cm axial image 50, max SUV is 17.59. CHEST, MEDIASTINUM, AND HILAR REGION: No areas of abnormal hypermetabolic uptake are identified. ABDOMEN AND PELVIS: No areas of abnormal hypermetabolic uptake are seen. OSSEOUS STRUCTURES: No areas of abnormal hypermetabolic uptake are identified. OTHER CT: There is coronary artery calcification and/or coronary stents present. Cardiomegaly is not ed. There is tiny pericardial effusion seen. There is [id number] underlying emphysematous change present. There is large fat-containing umbilical hernia. There are diverticula throughout the colon most prom inent in the sigmoid colon. There is moderate calcified plaque of the aorta extending into branch vessels. IMPRESSION: Primary left tongue base neoplasm poorly visualized but likely present subcentimeter in s ize. Left neck adenopathy noted may be confluent with partial necrosis. No distal metastatic disease is present.
== END | disposition home or self-care (01) ==
LOC: RADPETMAIN 11:57
PROVIDERS: ATTEND Internal Medicine Hematology & Oncology
DX: R59.0 Localized enlarged lymph nodes (principal); C47 Malignant neoplasm of peripheral nerves and autonomic nervous system
CPT/HCPCS: 78815; A9552

== ENCOUNTER 2018-10-08 10:43 | Emergency (ER) | payer OTHER ==
[2018-10-08] MEDS ORDERED: MORPHINE SULFATE 4 MG/ML SYRINGE IM STA (12:48)
--- NOTE | 2018-10-08 12:48 | ED ---
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 Patient states that since his surgery on 09/19/2018 for removal of tumor and local lymph node mets he had a NG feeding tube placed secondary to complications of the surgery causing difficulty swallowing. Pt states that a 1AM he was able to flush and use the NG tube however this morning at 9AM him or family members were unable to suction/flush the tube. Unable to get feedings. Pt does admit to tenderness at the site of NG placement, states it is sutured in place. Remaining ROS (-), patient denies any recent fever, chills, shortness of breath, chest pain, back pain, abdominal pain, nausea or vomiting, numbness or tingling, dysuria or hematuria, constipation or diarrhea, headaches or visual changes, or any other complaints. - Related Data Home Medications Medication Instructions Recorded Confirmed Albuterol Inhaler [Ventolin Hfa 2 puff INHALATION RT-Q6H PRN 09/06/15 10/08/18 Inhaler] Allopurinol [Zyloprim] 200 mg PEG/G-TUBE DAILY 09/06/15 10/08/18 Cholecalciferol [Vitamin D3] 400 unit PEG/G-TUBE DAILY 09/06/15 10/08/18 Fish Oil/Dha/Epa [Fish Oil 1,200 1 cap PEG/G-TUBE DAILY 09/06/15 10/08/18 mg Fish Oil] Lisinopril-Hctz 20-25 mg 1 tab PEG/G-TUBE DAILY 09/06/15 10/08/18 [Zestoretic 20-25] Multivit-Mins/Iron/Folic/Lycop 1 tab PEG/G-TUBE DAILY 09/06/15 10/08/18 [Centrum Men's Tablet] Atorvastatin [Lipitor] 40 mg PEG/G-TUBE HS 03/05/17 10/08/18 Budesonide [Pulmicort Flexhaler] 2 puff INHALATION RT-BID 03/05/17 10/08/18 amLODIPine [Norvasc] 10 mg PEG/G-TUBE DAILY 03/05/17 10/08/18 Clopidogrel [Plavix] 75 mg PEG/G-TUBE Q48H 10/08/18 10/08/18 levETIRAcetam [Keppra] 750 mg PEG/G-TUBE Q12HR 10/08/18 10/08/18 oxyCODONE HCL [Roxicodone] 5 - 10 mg PEG/G-TUBE Q4H PRN 10/08/18 10/08/18 Allergies Allergy/AdvReac Type Severity Reaction Status Date / Time No Known Allergies Allergy Verified 10/08/18 11:02 Review of Systems ROS Statement: Those systems with pertinent positive or pertinent negative responses have been documented in the HPI. ROS Other: All systems not noted in ROS Statement are negative. Past Medical History Past Medical History: COPD, Hyperlipidemia, Hypertension, Memory Impairment, Pneumonia Additional Past Medical History / Comment(s): bronchitis, tia's, exposure to agent orange History of Any Multi-Drug Resistant Organisms: None Reported Past Surgical History: No Surgical Hx Reported Additional Past Surgical History / Comment(s): pt denies any sx history tongue surg for ca Past Anesthesia/Blood Transfusion Reactions: No Reported Reaction Additional Past Anesthesia/Blood Transfusion Reaction / Comment(s): clausterphobia Past Psychological History: Depression Smoking Status: Former smoker Past Alcohol Use History: None Reported, Daily Past Drug Use History: None Reported - Past Family History Father Family Medical History: Myocardial Infarction (ID) Additional Family Medical History / Comment(s): from [place] at age 66 Mother Additional Family Medical History / Comment(s): mom is 88 and is healthy- had gallbladder out. General Exam - General Exam Comments Initial Comments: General: The patient is awake and alert, in no distress. Eye: +3 mm pupils are equal, round and reactive to light, extra-ocular movements are intact. No nystagmus. There is normal conjunctiva bilaterally. No signs of icterus. Ears, nose, mouth and throat: There are moist mucous membranes and no oral lesions. NG tube is in place in the left nostril. Neck: The neck is supple, there is no tenderness or JVD. Cardiovascular: There is a regular rate and rhythm. No murmur, rub or gallop is appreciated. Respiratory: Lungs are clear to auscultation, respirations are non-labored, breath sounds are equal. No wheezes, stridor, rales, or rhonchi. Gastrointestinal: Soft, non-distended, non-tender abdomen without masses or organomegaly noted. There is no rebound or guarding present. No CVA tenderness. Bowel sounds are unremarkable. Musculoskeletal: Normal ROM, no tenderness. Strength 5/5. Sensation intact. Radial pulses equal bilaterally 2+. Neurological: A&O x 3. CN II-XII intact, There are no obvious motor or sensory deficits. Coordination appears grossly intact. Speech is normal. Skin: Skin is warm and dry and no rashes or lesions are noted. Psychiatric: Cooperative, appropriate mood & affect, normal judgment. Limitations: no limitations Course Vital Signs 10/08/18 10/08/18 10/08/18 10:46 16:33 19:15 Temperature 98.5 F 98 F Pulse Rate 82 78 89 Respiratory 16 16 18 Rate Blood Pressure 119/67 128/83 124/72 O2 Sat by Pulse 95 95 96 Oximetry - Reevaluation(s) Reevaluation #1: Attempted to contact, get contact information of patient surgeon-no success. Initiated forms for transfer to [facility]. 10/08/18 Reevaluation #2: Family frustrated with wait, stating wish to leave and just drive to the [place]. 10/08/18 Reevaluation #3: Was finally called back from [facility] and spoke with Dr. Pineda- [employer] ENT surgeon for Dr. Hodge @17:49, we discussed patient case, history and presenting complaint. She was agreeable with plan of NG tube removal and replacement and outpatient f/u Wednesday as scheduled. No further instruction. We were able to remove NG tube once attending provider Dr. Roman saw patient in person and removed suture that were keeping NG tube in place. 10/08/18 18:05 Medical Decision Making - Medical Decision Making Well appearing 73-year-old male presenting today for chief complaint of NG tube tube dysfunction. We attempted to flush her and suctioned NG tube without success. Most likely distal dysfunction. attempted to contact [facility] on multiple occasions, finally after using families person cellular device, I was able to have the php consultant ENT surgeon paged. I received at call at 17:[address] Pineda, php consultant ENT surgeon for Dr. Hodge. She was agreeable with removal and replacement of NG tube for feedings. She did recommend follow-up on Wednesday as scheduled. No further orders at this time. Pt was given IV fluids, in ER labs revealed findings consistent with dehydration. At this time attending provider Dr. Roman feels patient is stable for discharge, I'm agreeable plan. Patient discharged stable condition appearing well deny quest at this time. Patient was educated on use of NG tube prior to discharge. Patient is given return parameters for any tube dysfunction or other concerning signs or symptoms. - Lab Data Result diagrams: 10/08/18 13:45 10/08/18 13:45 Lab Results 10/08/18 10/08/18 Range/Units 13:45 13:45 WBC 12.0 H (3.8-10.6) k/uL RBC 4.99 (4.30-5.90) m/uL Hgb 14.3 (13.0-17.5) gm/dL Hct 43.6 (39.0-53.0) % MCV 87.2 (80.0-100.0) fL MCH 28.7 (25.0-35.0) pg MCHC 32.9 (31.0-37.0) g/dL RDW 14.5 (11.5-15.5) % Plt Count 278 (150-450) k/uL Neutrophils % 72 % Lymphocytes % 18 % Monocytes % 6 % Eosinophils % 2 % Basophils % 0 % Neutrophils # 8.6 H (1.3-7.7) k/uL Lymphocytes # 2.2 (1.0-4.8) k/uL Monocytes # 0.7 (0-1.0) k/uL Eosinophils # 0.2 (0-0.7) k/uL Basophils # 0.1 (0-0.2) k/uL Sodium 144 (137-145) mmol/L Potassium 4.6 (3.5-5.1) mmol/L Chloride 107 (98-107) mmol/L Carbon Dioxide 27 (22-30) mmol/L Anion Gap 10 mmol/L BUN 40 H (9-20) mg/dL Creatinine 0.65 L (0.66-1.25) mg/dL Est GFR (CKD-EPI)AfAm >90 (>60 ml/min/1.73 sqM) Est GFR (CKD-EPI)NonAf >90 (>60 ml/min/1.73 sqM) Glucose 105 H (74-99) mg/dL Calcium 10.1 (8.4-10.2) mg/dL Total Bilirubin 0.8 (0.2-1.3) mg/dL AST 36 (17-59) U/L ALT 87 H (21-72) U/L Alkaline Phosphatase 105 (38-126) U/L Total Protein 7.9 (6.3-8.2) g/dL Albumin 4.4 (3.5-5.0) g/dL Disposition Clinical Impression: Encounter for nasogastric (NG) tube placement Disposition: HOME SELF-CARE Condition: Good Instructions (If sedation given, give patient instructions): Nasogastric Tube ( DC) Additional Instructions: Please follow-up with ENT specialist Wednesday as discussed. Please return to emergency room if the symptoms increase or worsen or for any other concerns. Is patient prescribed a controlled substance at d/c from ED?: No Referrals: [facility] [Primary Care Provider] - 1-2 days Time of Disposition: 16:26
[2018-10-08] MEDS ORDERED: SODIUM CHLORIDE 0.9% 1,000 ML IV SCH (13:15)
[2018-10-08 14:11] LABS: ALT 87 U/L (21-72); AST 36 U/L (17-59); Albumin 4.4 g/dL (3.5-5.0); Alkaline Phosphatase 105 U/L (38-126); Anion Gap 10 mmol/L; Basophils # (A) 0.1 k/uL (0-0.2); Basophils % (A) 0 %; Blood Urea Nitrogen 40 mg/dL (9-20); Calcium 10.1 mg/dL (8.4-10.2); Carbon Dioxide 27 mmol/L (22-30); Chloride 107 mmol/L (98-107); Eosinophils # (A) 0.2 k/uL (0-0.7); Eosinophils % (A) 2 %; Glucose 105 mg/dL (74-99); HCT 43.6 % (39.0-53.0); HGB 14.3 gm/dL (13.0-17.5); Lymphocytes # (A) 2.2 k/uL (1.0-4.8); Lymphocytes % (A) 18 %; MCH 28.7 pg (25.0-35.0); MCHC 32.9 g/dL (31.0-37.0); MCV 87.2 fL (80.0-100.0); Mean Platelet Volume 8.1; Monocytes # (A) 0.7 k/uL (0-1.0); Monocytes % (A) 6 %; Neutrophils # (A) 8.6 k/uL (1.3-7.7); Neutrophils % (A) 72 %; Platelet Count 278 k/uL (150-450); Potassium 4.6 mmol/L (3.5-5.1); RBC 4.99 m/uL (4.30-5.90); RDW 14.5 % (11.5-15.5); Sodium 144 mmol/L (137-145); Total Bilirubin 0.8 mg/dL (0.2-1.3); Total Protein 7.9 g/dL (6.3-8.2)
--- NOTE | 2018-10-08 15:30 | XR ---
Abdomen single view. History check tube placement. Comparison none. FINDINGS: 2 views were obtained supine. There is nasogastric tube with the tip probably in the body of the stom ach. Bowel gas pattern is normal. There is no sign of intestinal obstruction or pneumoperitoneum. Fec al pattern is normal. There is lucency over the heart that could relate to dilated air-filled esophag us. There are no pathologic calcifications over the kidneys. IMPRESSION: Possible dilated air-filled esophagus. Nonacute abdomen. Nasogastric tube in good position in the sto mach.
[2018-10-08] MEDS ORDERED: MORPHINE SULFATE 4 MG/ML SYRINGE IVP STA ×2 (15:44→19:00)
--- NOTE | 2018-10-08 18:39 | XR ---
EXAMINATION TYPE: XR chest 1V portable DATE OF EXAM: 10/08/2018 COMPARISON: 03/05/2017 HISTORY: NG tube placement TECHNIQUE: Single frontal view of the chest is obtained. FINDINGS: There is a nasogastric tube with the tip at the gastroesophageal junction. The lungs are c lear of consolidation. There is no heart failure. Heart size is normal. IMPRESSION: Nasogastric tube appears to be in the distal esophagus.
[2018-10-08 19:16] VITALS: BP 124/72; PULSE 89; RESP 18; TEMP 98
== END 2018-10-08 19:16 | disposition home or self-care (01) ==
LOC: EC 10:43
DX: Z46.59 Encounter for fitting and adjustment of other gastrointestinal appliance and device (principal); J44.9 Chronic obstructive pulmonary disease, unspecified; E78.5 Hyperlipidemia, unspecified; I10 Essential (primary) hypertension; Z87.891 Personal history of nicotine dependence; Z79.02 Long term (current) use of antithrombotics/antiplatelets; Z79.51 Long term (current) use of inhaled steroids; Z79.891 Long term (current) use of opiate analgesic; Z79.899 Other long term (current) drug therapy; Z85.810 Personal history of malignant neoplasm of tongue; Z85.72 Personal history of non-Hodgkin lymphomas; Z86.73 Personal history of transient ischemic attack (TIA), and cerebral infarction without residual deficits
CPT/HCPCS: 36415; 80053; 85025; 71045; 74018; 99283; 43762; 96374; 96376; 96361 ×5; 96372; J2270

== ENCOUNTER → 2019-03-17 | Outpatient (CLI) | payer OTHER ==
--- NOTE | 2019-03-20 08:00 | PE ---
Nuclear medicine PET/CT HISTORY: Head and neck cancer, subsequent, CO1, base of tongue cancer Patient received 11.3 mCi F-18 FDG intravenously in delayed scanning was performed from the skull bas e to the mid thighs. Small [id number] imaging also performed of the head and neck. Localization an d attenuation correction CT scan was performed. Correlation to prior nuclear medicine PET/CT 08/27/2018 Head and neck: Postop changes are noted to the tongue. Soft tissue attenuation somewhat increased sub mandibular location bilaterally. No evident cervical or supraclavicular adenopathy. No suspicious hyp ermetabolic uptake. CHEST: There is no evident lung mass. Bandlike areas of increased attenuation at the lung bases likel y reflect atelectasis or scarring, findings are similar to prior exam. No suspicious hypermetabolic u ptake. No mediastinal, axillary, or hilar uptake. Coronary artery calcifications are dense. ABDOMEN: There is an umbilical hernia containing loops of bowel. No evident bowel obstruction. No ret roperitoneal adenopathy or liver mass. No suspicious hypermetabolic uptake. Osseous structures are stable. IMPRESSION: Posttreatment changes. Interval improvement in the abnormality in the submandibular locat ion on the left, no suspicious hypermetabolic uptake noted in the surgical bed.
== END | disposition home or self-care (01) ==
LOC: RADPETMAIN 14:42
PROVIDERS: ATTEND Radiology Radiation Oncology
DX: Q38.3 Other congenital malformations of tongue (principal); C77.0 Secondary and unspecified malignant neoplasm of lymph nodes of head, face and neck; Z87.891 Personal history of nicotine dependence; Z98.890 Other specified postprocedural states
CPT/HCPCS: 78815; A9552

== ENCOUNTER → 2019-06-23 | Outpatient (CLI) | payer OTHER ==
[2019-06-23 10:15] LABS: African American GFR (CKD) >90 (>60 ml/min/1.73 sqM); Blood Urea Nitrogen 15 mg/dL (9-20)
--- NOTE | 2019-06-23 15:31 | CT ---
EXAMINATION TYPE: CT soft tissue neck wo/w con DATE OF EXAM: 06/23/2019 COMPARISON: 07/11/2018 HISTORY: Follow up tongue CA. Dysphagia CT DLP: 1296.5 mGycm CONTRAST: Patient injected with 100 mL of Isovue 300. TECHNIQUE: Axial images at 3 mm thick sections. Reconstructed images in the coronal plane and sagitt al plane are reviewed. FINDINGS: Limited CT sections are obtained the lung apices. The lung apices appear clear. CT neck: The torus tubarius and fossa of Rosenmuller are normal. Perinatal Tech spaces are normal. Para nasal sinuses and mastoid air cells are clear. There is asymmetry of the posterior tongue with fullness on the right compared to the left. The tonsi llar pillars appear thickened bilaterally. There is diffuse thickening through the hypopharynx with n arrowing. Findings could be related to diffuse infiltration. Underlying discrete delineated mass is n ot identified. Parotid glands appear normal and symmetrical. Submandibular glands, are normal. Parapharyngeal spac es are normal. No suspicious adenopathy is evident. Largest lymph node identified appears to be a 0. 8 cm lymph node in the submental region. Vocal cords are closed at the time of this exam and cannot be well evaluated. Thyroid as visualized is normal. Osseous structures are normal. IMPRESSIONS: 1. There is diffuse thickening to the posterior right tongue and diffusely around the hypopharynx. Fi ndings could be related to the patient's reported tongue cancer.
== END | disposition home or self-care (01) ==
LOC: RADCTMAIN 09:36
PROVIDERS: ATTEND Radiology Radiation Oncology
DX: C01 Malignant neoplasm of base of tongue (principal); C77.0 Secondary and unspecified malignant neoplasm of lymph nodes of head, face and neck; Z92.3 Personal history of irradiation; Z87.891 Personal history of nicotine dependence
CPT/HCPCS: 82565; 84520; 70492; 36415; Q9967

== ENCOUNTER → 2020-01-22 | Outpatient (CLI) | payer OTHER ==
[2020-01-22 13:38] LABS: African American GFR (CKD) >90 (>60 ml/min/1.73 sqM); Blood Urea Nitrogen 11 mg/dL (9-20); Non-African American GFR(CKD) >90 (>60 ml/min/1.73 sqM)
--- NOTE | 2020-01-22 15:00 | CT ---
EXAMINATION TYPE: CT soft tissue neck wo/w con DATE OF EXAM: 01/22/2020 HISTORY: Malignant neoplasm base of tongue. Sore throat, difficulty swallowing. COMPARISON: CT neck June 23, [address] Prior PET/CT March 17, 2019 and older study August 27, 2018 CT DLP: 1361.4 mGycm. Automated Exposure Control for Dose Reduction was Utilized. TECHNIQUE: CT scan of the neck is performed without and with IV Contrast, patient injected with 100 mL of Isovue M300, axial images are obtained, coronal and sagittal reformatted images are reviewed. FINDINGS: Airway: Patent oropharyngeal airway. Slight thickening of the epiglottis on current study without nirali picious asymmetry or mass. Vallecula is clear. Shallow superior to this in the left tongue there is m etallic density possible foreign body or ornament extending to left of midline axial images 57 throug h 59 redemonstrated which was present on most recent CT but not on older studies, correlate clinicall y. Primary mass or neoplasm just superior to this along the left margin of the oral pharynx is not cl early identified on this study. No significant change from most recent CT. Large left neck mass or ad enopathy at this level just posterior to the left submandibular gland remains nonpresent on current s tudy. Some interval improvement in mild edematous changes submandibular region anterior to the hypoph aryngeal airway. Thyroid gland remains small in size. Lung apices show mild emphysematous change. Parotid/submandibular glands: Generalized mild fat replaced atrophy of the bilateral parotid submand ibular glands remains present. Carotid/Vascular Structures: Grossly mild to moderate diffuse plaque along the course of the common c arotid arteries into the bilateral carotid bulbs without significant stenosis redemonstrated. Osseous Structures: S-shaped scoliotic curvature with moderate multilevel spurring and multilevel dis c space narrowing greatest lower cervical spine. Other: No definitive new greater than 1 cm neck adenopathy identified on current study. Nasal septum remains deviated to left of midline. IMPRESSION: No obvious new or recurrent mass or adenopathy to suggest active neoplastic recurrence.
== END | disposition home or self-care (01) ==
LOC: RADCTMAIN 12:37
PROVIDERS: ATTEND Radiology Radiation Oncology
DX: C01 Malignant neoplasm of base of tongue (principal); Z92.3 Personal history of irradiation; C77.0 Secondary and unspecified malignant neoplasm of lymph nodes of head, face and neck; Z87.891 Personal history of nicotine dependence
CPT/HCPCS: 36415; 70492; 82565; 84520

== ENCOUNTER → 2020-09-11 | Outpatient (CLI) | payer OTHER ==
[2020-09-11 16:10] LABS: African American GFR (CKD) >90 (>60 ml/min/1.73 sqM); Blood Urea Nitrogen 13 mg/dL (9-20); Non-African American GFR(CKD) 89 (>60 ml/min/1.73 sqM)
--- NOTE | 2020-09-12 12:54 | CT ---
EXAMINATION TYPE: CT neck chest w con DATE OF EXAM: 09/11/2020 COMPARISON: 01/22/2020, 06/23/2019, 03/17/2019 HISTORY: 75-year-old male Malignant neoplasm of base of tongue. Pt only c/o sore throat. Throat sx 2 years ago. TECHNIQUE: Contiguous axial scanning of the soft tissues of the neck and chest performed with IV Cont rast, patient injected with 100 mL of Isovue 300. Coronal/sagittal reconstructions performed. CT DLP: 1678.20 mGycm Automated exposure control for dose reduction was used. FINDINGS: NECK: Visualized intracranial structures, orbits and globes, paranasal sinuses, and mastoid air cells are c lear. Leftward nasal septal deviation. I described calcifications within the carotid siphons. Nasopharynx is clear. There is postsurgical deformity to the left paramedian base of the tongue and volume loss with efface ment of the left vallecular space, unchanged from prior. Some focal calcification or surgical materia l at the left posterior tongue is unchanged. Epiglottis and prevertebral soft tissues appear satisfactory. Some generalized thickening of the mucosal space of the hypopharynx. Posttreatment change, unchanged from prior exam. Glottic and subglottic structures show no gross abnormal mobility. Tracheal column is clear. Soft tissue stranding along the fascial planes along the left side of the neck is stable suggesting p osttreatment change. No new lymphadenopathy identified here. The thyroid, 74, and parotid glands appear satisfactory. Bones: Moderate spondylotic change with the lower cervical spine. Hypertrophic facet arthropathy up recommended cervical spine particularly towards the right. Degenera tive grade 1 anterolisthesis C3-C4, C4-C5, and C5-C6. CHEST: Heart normal size without pericardial effusion. Three-vessel coronary artery calcifications are prese nt. Small anterior pericardial effusion measuring 9 mm. Ectatic ascending aorta at 3.7 cm. Conventional arterial supply to the anatomy. New conglomerate AP window lymphadenopathy, some of which is centrally necrotic. The conglomerate mas s measures up to 7.0 x 5.6 cm. New conglomerate subcarinal lymphadenopathy measuring up to 5.2 x 2.8 cm. Areas of central necrosis a re present. Necrotic right infrahilar lymph node at 1.5 cm. Minimal emphysema is present but there are new bilateral pulmonary nodules ranging in size from 2.1 c m to 4 mm. Some of these show tiny areas of internal cavitation. Some chronic pleural parenchymal scarring at the left base. No consolidation or pleural effusion. Visualized upper abdomen shows clear adrenal glands. Bones: Moderate degenerative disc disease midthoracic spine. IMPRESSION: NECK: 1. Stable post surgical change along the left paramedian posterior tongue. Stable thickening of the m ucosal space of the hypopharynx and volume loss on the left with effacement of the left vallecular sp pamela. Stable soft tissue stranding along the fascial planes of the left side of the neck. Given stabil ity, these findings suggest posttreatment change. No suspicious lymphadenopathy or mass identified wi thin the neck. CHEST: 2. Exam positive for metastatic disease: 3. Bilateral pulmonary nodules ranging in size from 4 mm up to 2.1 cm. 4. Partially necrotic mediastinal lymphadenopathy. Conglomerate randall mass measures up to 7.0 cm in t he AP window and 5.2 cm in the subcarinal region.
== END | disposition home or self-care (01) ==
LOC: RADCTMAIN 15:27
PROVIDERS: ATTEND Radiology Radiation Oncology
DX: J39.2 Other diseases of pharynx (principal); C79.89 Secondary malignant neoplasm of other specified sites; R93.89 Abnormal findings on diagnostic imaging of other specified body structures; R91.8 Other nonspecific abnormal finding of lung field; R59.1 Generalized enlarged lymph nodes; C01 Malignant neoplasm of base of tongue; C77.0 Secondary and unspecified malignant neoplasm of lymph nodes of head, face and neck; Z98.890 Other specified postprocedural states
CPT/HCPCS: 82565; 84520; 70491; 71260; 36415; Q9967

== ENCOUNTER → 2020-09-20 | Outpatient (CLI) | payer OTHER ==
--- NOTE | 2020-09-23 08:47 | PE ---
EXAMINATION TYPE: PET CT fusion skull to thigh DATE OF EXAM: 09/20/2020 COMPARISON: CT neck and chest September 11, 2020. PET/CT March 17, 2019 HISTORY: Throat cancer diagnosed left tongue base 2019 completed radiation treatment in December. TECHNIQUE: Following the intravenous administration of 13.89 mCi of F-18 FDG, whole body images are performed from the skull base to the midthigh. Images are reviewed on the computer in the coronal, a xial, and sagittal planes. Reconstructed rotating images are created on independent workstation and reviewed on the computer. A localization and attenuation correction CT is performed in conjunction with the PET scan. SCAN: Subsequent Scan FINDINGS: SKULL BASE AND NECK: No new areas of abnormal hypermetabolic uptake. Postsurgical change left lung b ase axial image 59 redemonstrated. No new suspicious hypermetabolic neck adenopathy. CHEST, MEDIASTINUM, AND HILAR REGION: Confirmation of metastatic disease in the thorax. Hypermetaboli c adenopathy is redemonstrated, for reference there is anterior 3.1 x 2.2 cm lymph note. There is a l arger hypermetabolic 4.4 x 4.3 cm mass or lymph node in the prevascular space axial image 100, max GIL V is 12.01. There is 3.4 x 2.6 cm low dense posterior right hilar mass with hypermetabolic deeper com ponent axial image 115, max SUV is 2.26. There is 1.7 x 1.5 cm posterior right lower lobe nodule axia l image 113 with mild hypermetabolic uptake, max SUV is 2.99. There are scattered additional bilatera l lower lung nodules and areas of cavitation, for reference 2.1 x 2.0 cm left basilar nodule image 12 6, max SUV is 5.08. ABDOMEN AND PELVIS: No new areas of abnormal hypermetabolic uptake. OSSEOUS STRUCTURES: No new areas of abnormal hypermetabolic uptake. OTHER CT: [id number] calcified plaque bilateral carotid bulb level. Postsurgical change left calyl ng base redemonstrated. Mild/moderate underlying emphysematous change redemonstrated. Mild cardiomegaly with elevated left he midiaphragm. Small pericardial effusion. Moderate to severe coronary artery calcification and/or sten ts. Moderate calcified plaque of the aorta extends into branch vessels. Large fat-containing umbilical he rnia. IMPRESSION: Confirmation of active metastatic disease to the thorax as detailed above. Findings consi stent with hematogenous spread.
== END | disposition home or self-care (01) ==
LOC: RADPETMAIN 15:59
PROVIDERS: ATTEND Radiology Radiation Oncology
DX: C76.1 Malignant neoplasm of thorax (principal); C01 Malignant neoplasm of base of tongue; C77.0 Secondary and unspecified malignant neoplasm of lymph nodes of head, face and neck
CPT/HCPCS: 78815; A9552

== ENCOUNTER 2020-09-23 09:29 | Day surgery (SDC) | payer OTHER ==
[2020-09-19 09:16] VITALS: BMI 36.0
[~2020-09-23 09:29] MED LIST: ALBUTEROL NEB (CONC) 2.5 MG/0.5 ML INHALATION ONE; LIDOCAINE 2% (PF) 20 MG/ML 5 ML VIAL INHALATION ONE; LIDOCAINE VISCOUS 300 MG/15 ML CUP MUCOUS MEM ONE; SODIUM CHLORIDE 0.9% 1,000 ML IV SCH
[2020-09-23 10:24] VITALS: RESP 16
[2020-09-23] MEDS ORDERED: LACTATED RINGERS 1,000 ML IV ONE ×2 (10:24→13:10)
[2020-09-23] MEDS ORDERED: LIDOCAINE 1% (10MG/ML) FOR IV START INTRADERMA ONE (10:24)
[2020-09-23] MEDS ORDERED: LACTATED RINGERS 1,000 ML IV SCH (10:27)
[2020-09-23] MEDS ORDERED: ONDANSETRON 4 MG/2 ML VIAL IVP ONE (10:27)
[2020-09-23] MEDS ORDERED: LIDOCAINE 1% (10MG/ML) FOR IV START INTRADERMA PRN (10:27)
[2020-09-23] MEDS ORDERED: DEXAMETHASONE SOD PHOSPHATE 4 MG/ML 1 ML VIAL IV ONE (10:27)
[2020-09-23] MEDS ORDERED: fentaNYL (PF) 50 MCG/ML 2 ML AMP IV ONE (10:49)
[2020-09-23] MEDS ORDERED: MIDAZOLAM 2 MG/2 ML VIAL IV ONE (10:49)
--- NOTE | 2020-09-23 10:56 | CT ---
EXAMINATION TYPE: CT Chest altaf Owens Protocol DATE OF EXAM: 09/23/2020 COMPARISON: PET/CT 3 days ago HISTORY: History of throat cancer with hemoptysis, metastatic disease to thorax suspected. CT DLP: 520 mGycm Automated exposure control for dose reduction was used. FINDINGS: CT chest performed without contrast. This exam is for bronchoscopy planning and not for diagnostic pu rposes. Scattered pulmonary nodules bilaterally in the mid to lower lungs one with cavitation axial i mage 33 series 6 redemonstrated. Largest posterior left lung base measures 2.1 x 2.1 cm axial image 4 2. [id number] bibasilar linear scarring and/or atelectasis. There is cardiomegaly with multiple tiny pericardial effusion and moderate to severe three-vessel coronary artery calcification and/or s tents. There is abnormal masses or adenopathy in the prevascular space redemonstrated axial image 21 series 10. IMPRESSION: As above.
[2020-09-23] MEDS ORDERED: SUCCINYLCHOLINE CHLORIDE 100 MG/5 ML SYR IV ONE (12:13)
[2020-09-23] MEDS ORDERED: PROPOFOL 10 MG/ML 20 ML VIAL IV ONE (12:13)
[2020-09-23] MEDS ORDERED: fentaNYL (PF) 50 MCG/ML 2 ML AMP ONE (12:13)
[2020-09-23] MEDS ORDERED: LIDOCAINE 1% INJ 10MG/ML (20 ML MDV) ONE (12:13)
--- NOTE | 2020-09-23 13:10 | P.PCN ---
Date of Procedure: 09/23/20 Preoperative Diagnosis: Bilateral pulmonary nodules, rule out metastases Postoperative Diagnosis: Bilateral pulmonary nodules, rule out metastases Procedure(s) Performed: Navational bronchoscopy Airway inspection Transbronchial biopsy of the RLL, RML, LLL pulmonary nodules Transbronchial needle aspirate of a right lower lobe pulmonary nodule Anesthesia: GETA Surgeon: Estelita Garcia Estimated Blood Loss (ml): 0 Pathology: other Condition: stable Disposition: same day Operative Findings: This procedure is a navigational bronchoscopy that was done under general anesthesia. The patient was brought in to preop holding and the vPads were applied and the patient had a CAT scan of the chest utilizing the [employer] protocol. The images uploaded into the system and the several pulmonary nodules in the right middle lobe right lower lobe left lower lobe and left upper lobe are all mapped and appropriate airways leading into the nodules were identified. Following that, all of this information was uploaded into the [employer] navigational system using a USB. The patient was brought into the operating room and the patient was intubated placed on a mechanical ventilator. Intubation process was done by MOLECULAR PHYSICIST bedside. The patient was intubated by #8 orotracheal tube. Following that, the procedure was started. The flexible bronchoscope was introduced through the orotracheal tube and an airway inspection was done. The various airways were inspected including the distal trachea, bilateral mainstem bronchi, right upper lobe bronchus, right middle lobe bronchus and right lower lobe bronchus and left upper lobe bronchus and left lower lobe bronchussegments and subsegments. During this airway inspection, the tertiary barbara originating into the right lower lobe posterior segment and the lateral segment was irregular and inflamed. Similarly, left lower lobe posterior segment tertiary barbara had similar endobronchial irregularities. Using navigational guidance, there for says was moved to the right lower lobe entrance mother masses of the right lower lobe pulmonary nodule was obtained with excellent accuracy. Following that, transbronchial biopsy of the right middle lobe nodule was done through its lateral segment and transbronchial biopsies of the left lower lobe pulmonary nodule was done through a posterior segment. All of these nodules were biopsied with excellent accuracy. Sequently, the bronchoscope was noted to the right lower lobe and transbronchial needle aspirate of the right lower lobe pulmonary nodule was done using a 21-gauge cytology needle and utilizing navigational guidance. No endobronchial bleeding was encountered. Total amount of bleeding was less than 5 mL. Therapeutic airway suctioning was done. Respiratory secretions were all cleared up. Bronchoscope was removed and the patient was left to MOLECULAR PHYSICIST for extubation. The procedure was done successfully without any bedside complications. The patient will be extubated and following that the patient will be transferred recovery. The patient was seen back in a week's time to discuss the results of the biopsy.
[2020-09-23 13:20] VITALS: TEMP 97.3
--- NOTE | 2020-09-23 13:54 | XR ---
EXAMINATION TYPE: XR chest 1V DATE OF EXAM: 09/23/2020 COMPARISON: Chest x-ray 10/08/2018, CT chest 09/23/2020 HISTORY: Post bronchoscopy TECHNIQUE: Single frontal view of the chest is obtained. FINDINGS: Bibasilar increased densities present, basilar nodules partially visualized. There is no e vident pneumothorax. Aorta is dense. Cardiac mediastinal silhouette within normal limits accounting f or rotation. IMPRESSION: No evident pneumothorax status post bronchoscopy, basilar airspace disease.
[2020-09-23 14:20] VITALS: BP 145/78; PULSE 62
== END 2020-09-23 14:30 | disposition home or self-care (01) ==
LOC: ORWHC2ENDO 09:29
PROVIDERS: ATTEND Internal Medicine Critical Care Medicine
DX: R91.8 Other nonspecific abnormal finding of lung field (principal); G40.909 Epilepsy, unspecified, not intractable, without status epilepticus; M19.90 Unspecified osteoarthritis, unspecified site; I10 Essential (primary) hypertension; E78.5 Hyperlipidemia, unspecified; J43.9 Emphysema, unspecified; M51.34 Other intervertebral disc degeneration, thoracic region; R53.82 Chronic fatigue, unspecified; Z85.810 Personal history of malignant neoplasm of tongue; Z85.89 Personal history of malignant neoplasm of other organs and systems; Z85.79 Personal history of other malignant neoplasms of lymphoid, hematopoietic and related tissues; Z92.3 Personal history of irradiation; Z88.8 Allergy status to other drugs, medicaments and biological substances; Z79.899 Other long term (current) drug therapy; Z79.891 Long term (current) use of opiate analgesic; Z79.02 Long term (current) use of antithrombotics/antiplatelets; Z82.49 Family history of ischemic heart disease and other diseases of the circulatory system; Z87.891 Personal history of nicotine dependence; Z98.890 Other specified postprocedural states; Z79.51 Long term (current) use of inhaled steroids; Z97.2 Presence of dental prosthetic device (complete) (partial)
CPT/HCPCS: 88305; 88173; 71045; 71250; 31628; 31629; 31632; 31627; J2250; J1100; J2405; J2001; J3010; J0330; J2704; 31625; 31633

== ENCOUNTER 2020-10-03 08:47 | Day surgery (SDC) | payer OTHER ==
[2020-10-03 09:29] LABS: Mean Platelet Volume 8.5; Platelet Count 215 k/uL (150-450)
[2020-10-03] MEDS ORDERED: ALPRAZolam 0.25 MG TAB PO STA (09:33)
[2020-10-03 09:37] VITALS: TEMP 98.1
[2020-10-03 09:48] LABS: INR 0.9 (<1.2); Prothrombin Time 9.8 sec (9.0-12.0)
--- NOTE | 2020-10-03 11:20 | XR ---
EXAMINATION TYPE: XR chest 1V portable DATE OF EXAM: 10/03/2020 COMPARISON: Prior chest x-ray 09/23/2020 HISTORY: Status post lung biopsy TECHNIQUE: Single frontal view of the chest is obtained. FINDINGS: There is no evident pneumothorax or sizable effusion. Improved aeration present at the alyssa g bases. Bilateral nodular densities are present. No other significant interval change. IMPRESSION: No evident complication status post post lung biopsy.
--- NOTE | 2020-10-03 11:23 | CT ---
EXAMINATION TYPE: CT biopsy lung LT DATE OF EXAM: 10/03/2020 HISTORY: Lung nodules COMPARISON: CT 09/11/2020 Maximal barrier technique was utilized, hand hygiene obtained with soap and water. The skin overlyin g a suitable path to the lesion was localized using CT and the overlying skin was prepped and draped. Lidocaine used for local anesthesia. A skin stephanie made with a scalpel. Using CT guidance, access w as gained to the lesion with a 20-gauge core needle coaxially through a 19-gauge guide. Core specime n submitted to cytology. Single pass was performed. Following the procedure no immediate complication s. The patient is discharged in stable condition to observation. Hemostasis achieved. IMPRESSION: SUCCESSFUL CT GUIDED CORE BIOPSY left lower lobe lung nodule. PATHOLOGY PENDING. THIS PROCEDURE WAS PERFORMED BY THE UNDERSIGNED.
--- NOTE | 2020-10-03 13:12 | XR ---
EXAMINATION TYPE: XR chest 1V portable DATE OF EXAM: 10/03/2020 HISTORY: Status post left lung biopsy. COMPARISON: 10/03/2020 TECHNIQUE: Single view of the chest is submitted. FINDINGS: Demonstrated are scattered senescent parenchymal change. There is a tiny left apical pneumothorax jeremie ntified. There is no evidence for focal infiltrate. The heart is stable. Left suprahilar nodular density. Left lower lobe nodule. Degenerative changes are seen of the dorsal spine. IMPRESSION: 1. There is a tiny left apical pneumothorax identified.
[2020-10-03 16:02] VITALS: BP 118/83; PULSE 68; RESP 18
== END 2020-10-03 13:50 | disposition home or self-care (01) ==
LOC: RADPROMAIN 08:47
PROVIDERS: ATTEND Internal Medicine Critical Care Medicine
DX: C34.32 Malignant neoplasm of lower lobe, left bronchus or lung (principal); C02.9 Malignant neoplasm of tongue, unspecified; Z79.02 Long term (current) use of antithrombotics/antiplatelets
CPT/HCPCS: 32408; 36415; 71045; 77012; 85049; 85610; 88305; 88341; 88342

== ENCOUNTER → 2020-11-04 | Outpatient (CLI) | payer OTHER ==
--- NOTE | 2020-11-05 04:30 | MR ---
EXAMINATION TYPE: MR brain wo/w con DATE OF EXAM: 11/04/2020 COMPARISON: 03/06/2017 HISTORY: Head and neck cancer check up. CONTRAST: Standard multiplanar, multisequence MRI departmental protocol utilizing 11 mL intravenous Gadavist ga dolinium contrast. There is some cerebral cortical atrophy. There is no mass effect nor midline shift. There is no sign of intracranial hemorrhage. There is thinning of the corpus callosum. The brainstem is intact. The di ffusion images show no evidence of an acute infarct. There are scattered numerous small foci of incre ased signal in both cerebral hemispheres in the white matter. These are predominantly in the parietal lobes. Total number is approximately 30. Most of these measure less than 5 mm. The largest measures 7 mm. Contrast images show normal enhancement of the venous sinuses. There is no pathologic intracranial en hancement. IMPRESSION: Cerebral atrophy. Numerous predominantly small white matter high signal foci could relate to some chr onic small vessel ischemia or demyelinating disease. No evidence of cortical infarct. No evidence of metastatic disease. White matter disease overall not significantly different than old exam.
== END ==
LOC: RADMRIMAIN 15:50
PROVIDERS: ATTEND Internal Medicine Hematology & Oncology
DX: G31.9 Degenerative disease of nervous system, unspecified (principal)
CPT/HCPCS: 70553; A9585

== ENCOUNTER 2020-11-08 07:02 | Day surgery (SDC) | payer OTHER ==
[2020-11-05 14:31] VITALS: BMI 36.8
[~2020-11-08 07:02] MED LIST changes: +ACETAMINOPHEN TAB 500 MG TAB PO PRN; -ALBUTEROL NEB (CONC) 2.5 MG/0.5 ML INHALATION ONE; +HYDROmorphone 0.5 MG/0.5 ML SYRINGE IVP PRN; +LACTATED RINGERS 1,000 ML IV SCH; -LIDOCAINE 2% (PF) 20 MG/ML 5 ML VIAL INHALATION ONE; -LIDOCAINE VISCOUS 300 MG/15 ML CUP MUCOUS MEM ONE; +MIDAZOLAM 2 MG/2 ML VIAL IV PRN; +ONDANSETRON 4 MG/2 ML VIAL IVP ONE; +Pre Op ABX Message 1 EACH MISC MISCELLANE ONE; -SODIUM CHLORIDE 0.9% 1,000 ML IV SCH
--- NOTE | 2020-11-08 07:03 | P.GSHP ---
History of Present Illness H&P Date: 11/08/20 CHIEF COMPLAINT: Left lung cancer HISTORY OF PRESENT ILLNESS: The patient is a 75-year-old male with past history of tongue base cancer now presents with new left lung cancer recently diagnosed less than 2 months ago. Presents here for chemotherapy and need for venous access. His additional c omorbidities including dementia, seizure disorder, and hypertensive heart disease. PAST MEDICAL HISTORY: See list and reviewed PAST SURGICAL HISTORY: See list and reviewed CURRENT MEDICATIONS: See list and reviewed ALLERGIES: See list and reviewed SOCIAL HISTORY: Past tobacco use. FAMILY HISTORY: See list and reviewed REVIEW OF ORGAN SYSTEMS: CONSTITUTIONAL: No fevers or chills. Has weight loss. EYES: Denies any trouble with vision. No glasses. HEENT: No difficulties with hearing. No nosebleeds. Has difficulty swallowing from tongue base cancer. RESPIRATORY: Denies pneumonia. Has dyspnea on exertion. CARDIOVASCULAR: Denies any chest pain, palpitations, or recent heart attacks. Has hyperlipidemia. He has hypertensive heart disease. On chronic antiplatelet therapy. GASTROINTESTINAL: Denies fatty food intolerance. Denies change in bowel habits and gas bloat. GENITOURINARY: Denies any blood in urine or increased urinary frequency. NEUROLOGICAL: Denies any numbness or tingling along the distal extremities. Has seizure disorders. MUSCULOSKELETAL: Has back pain, stiffness or joint arthritis. Has gout. SKIN: No current skin cancer. No rash. PSYCHIATRIC: Denies current depression or suicidal thoughts. Has dementia. ENDOCRINE: Denies current thyroid disorders. HEME/LYMPHATIC: Denies any lumps and bumps around the neck. No recent deep venous thrombosis. ALLERGY/IMMUNOLOGY: No immunoglobulin therapy. No immune deficiencies. BREAST: No past breast cancer. PHYSICAL EXAMINATION: Vital signs: Stable GENERAL: Well developed and in no acute distress. Pleasant. HEENT: No sclera icterus. Extraocular movements grossly intact. Moist buccal mucosa. Head is atraumatic, normocephalic. Hears conversational speech. No nasal drainage. NECK: Supple without lymphadenopathy. No JV distention. CHEST: Non-labored respirations and equal bilateral excursions. CARDIOVASCULAR: Regular rate and rhythm. Palpable 2+ radial pulses. ABDOMEN: Nontender. MUSCULOSKELETAL: No clubbing, cyanosis or edema. NEUROLOGIC: No focal or lateralizing signs. PSYCH: Appropriate affect. Alert and oriented to person, place and time. ASSESSMENT: 1. Left lung cancer. 2. Need for chemotherapeutic access. PLAN: 1. Agree with Port-A-Cath placement. 2. He is elevated risk for complications due to COPD. 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, exposure to agent orange, last seizure 4 yrs ago, current dx lung cancer, constipation, gout, "borderline cholesterol", diff swallow-cons tant sore throat History of Any Multi-Drug Resistant Organisms: None Reported Past Surgical History: No Surgical Hx Reported Additional Past Surgical History / Comment(s): neck dissection and lymph node dissection- r/t naldo ca, peg tube insertion and later tube removed, bronchoscopy Past Anesthesia/Blood Transfusion Reactions: Motion Sickness Additional Past Anesthesia/Blood Transfusion Reaction / Comment(s): claustrophobia, hx of lung aspiration after neck surgery Smoking Status: Former smoker - Past Family History Father History Unknown: Yes Family Medical History: Memory Impairment Additional Family Medical History / Comment(s): from [place] at age 66 Mother Additional Family Medical History / Comment(s): mom is 88 and is healthy- had gallbladder out. Medications and Allergies Home Medications Medication Instructions Recorded Confirmed Type Albuterol Inhaler (Mhu) [Ventolin 2 puff INHALATION RT-Q6H PRN 09/06/15 11/05/20 History Hfa Inhaler (Mhu)] Cholecalciferol [Vitamin D3 (10 400 unit PO DAILY 09/06/15 11/05/20 History Mcg = 400 Iu)] Fish Oil/Dha/Epa [Fish Oil 1,200 1 cap PO DAILY 09/06/15 11/05/20 History mg Fish Oil] Lisinopril-Hctz 20-25 mg 1 tab PO DAILY 09/06/15 11/05/20 History [Zestoretic 20-25] Multivit-Mins/Iron/Folic/Lycop 1 tab PO DAILY 09/06/15 11/05/20 History [Centrum Men's Tablet] allopurinoL [Zyloprim] 100 mg PO DAILY 09/06/15 11/05/20 History amLODIPine [Norvasc] 10 mg PO DAILY 03/05/17 11/05/20 History Clopidogrel [Plavix] 75 mg PO DAILY 10/08/18 11/05/20 History HYDROcodone/APAP 10-325MG [[place] 2 tab PO Q6HR PRN 09/19/20 11/05/20 History 10-325] levETIRAcetam [Keppra] 750 mg PO Q12HR 09/19/20 11/05/20 History Budesonide/Formoterol Fumarate 1 puff PO BID PRN 11/05/20 11/05/20 History [Budesonide-Formoterol 80-4.5] Nicotine 14Mg/24Hr Patch [Habitrol 1 patch TRANSDERM DAILY 11/05/20 11/05/20 History 14Mg/24Hr Patch] Allergies Allergy/AdvReac Type Severity Reaction Status Date / Time No Known Allergies Allergy Verified 11/05/20 14:10
[2020-11-08 07:30] VITALS: RESP 16; TEMP 97
[2020-11-08] MEDS ORDERED: LIDOCAINE 1% (10MG/ML) FOR IV START INTRADERMA ONE (07:38)
[2020-11-08] MEDS ORDERED: KETAMINE 10 MG/ML 20 ML VIAL ONE (08:37)
[2020-11-08] MEDS ORDERED: PROPOFOL 10 MG/ML 20 ML VIAL IV ONE (08:37)
[2020-11-08] MEDS ORDERED: MIDAZOLAM 2 MG/2 ML VIAL ONE (08:37)
[2020-11-08] MEDS ORDERED: fentaNYL (PF) 50 MCG/ML 2 ML AMP ONE (08:37)
[2020-11-08] MEDS ORDERED: LIDOCAINE 1% INJ 10MG/ML (20 ML MDV) ONE (08:37)
[2020-11-08] MEDS ORDERED: BUPIVACAIN-EPI 0.5%-1:200,000 30 ML VIAL SQ ONE (08:42)
[2020-11-08] MEDS ORDERED: SODIUM CHLORIDE 0.9% 500 ML 500 ML with HEPARIN SODIUM,PORCINE 5,000 UNIT IV ONE ×2 (09:08)
--- NOTE | 2020-11-08 09:43 | P.OP ---
Date of Procedure: 11/08/20 Description of Procedure: SURGEON: TANIYA GARCES MD SPECIAL EDUCATION CURRICULUM SPECIALIST: None. PREOPERATIVE DIAGNOSES: 1. Left lung cancer, right 2. Need for chemotherapeutic access. 3. Morbid obesity due to excess calories, BMI 36.5 4. History of tongue base cancer 5. Chronic obstructive pulmonary disease 6. Gout 7. Hypertensive heart disease 8. Coronary artery disease 9. Chronic antiplatelet therapy 10. Dementia 11. Seizure disorder POSTOPERATIVE DIAGNOSES: 1. Left lung cancer, right 2. Need for chemotherapeutic access. 3. Morbid obesity due to excess calories, BMI 36.5 4. History of tongue base cancer 5. Chronic obstructive pulmonary disease 6. Gout 7. Hypertensive heart disease 8. Coronary artery disease 9. Chronic antiplatelet therapy 10. Dementia 11. Seizure disorder PROCEDURES PERFORMED: 1. Ultrasound guided central venous access of the right internal jugular venous vein. 2. Fluoroscopic guidance for central venous access right internal jugular vein less than 1 seconds. 3. Placement of right internal jugular power port 6 [place] by OpenTable, Xcela Plus Port ANESTHESIA: IV sedation with local. ESTIMATED BLOOD LOSS: 1 mL. SPECIMENS REMOVED: None. COMPLICATIONS: None. INDICATIONS: The patient is a 75-year-old male recently diagnosed with new left lung cancer. She presents for chemotherapeutic access. Benefits and risks of surgical intervention were described including bleeding, infection, mechanical problems with his port. Informed consent was obtained. DESCRIPTION OR PROCEDURE: Patient was brought into the operating room, laid in supine position. After adequate IV sedation, the chest and right neck were prepped and draped in a standard sterile fashion including the shoulder with ChloraPrep. Timeout protocol was confirmed with the surgical team regarding the patient's name, procedure to be performed including preoperative medications for which she received IV antibiotics. Bilateral SCDs were placed. An ultrasound was used to capture views of the right internal jugular vein including right carotid artery, which was patent and without thrombus along its course. The right IJ was then localized using anesthetic for the skin. A 16 [place] needle was used to access the IJ. A guidewire was advanced into the IJ with dark nonpulsatile venous blood. Two fingerbreadths distal to the clavicle, on the lateral third, a transverse 1.5 to 2 cm incision was deepened into the skin after localizing the skin. A pocket was created for the port. The port on the back table was flushed with heparinized saline and then attached to the catheter tubing. An adapter was fastened to the actual port site over the tubing. The port easily had fit snug into the pocket. A subcutaneous tunneler was placed along the open end of the tubing and brought out through the separate stab incision. Fluoroscopic guidance confirmed no kinking along the tubing and the port site. Next, the J-wire was exchanged for a catheter sheath for which the tubing was cut to 25 cm and then advanced through the catheter sheath. The Peel-away sheath was then removed and the tubing was secured at the junction of the superior vena cava as well as the right atrium. The tubing was found to be crossed however functional. This was all done under fluoroscopic guidance under 1 seconds. Heparin lock of 5 mL was placed. Easy pullback as well as return and aspiration was obtained of the port site. The skin incision was closed using layers using 3-0 Vicryl for the subcu followed by 4-0 Monocryl in a running subcuticular fashion. At the stick site this was also reapproximated using 4-0 Monocryl. The incisions were covered with Optifoam, The skin was cleansed and Exofin liquid glue was applied. Optifoam dressing was placed over the port site. A total of 20 mL of local anesthetic was placed. At the end of the procedure, needle, sponge, and instrument count was verified correct by surgical lead. The patient was awoken and pain free and taken to the second stage postanesthesia care unit. The patient tolerated the procedure well. FINDINGS: 1. No thrombus encountered along the right carotid artery or internal jugular vein. 2. Access of the right internal jugular vein under ultrasound guidance. 3. Fluoroscopy of less than 1 seconds. Plan - Discharge Summary Discharge Rx Participant: No New Discharge Prescriptions: New Acetaminophen Tab [Tylenol Tab] 1,000 mg PO Q6HR PRN #30 tablet PRN Reason: Pain Continue allopurinoL [Zyloprim] 100 mg PO DAILY Albuterol Inhaler (Mhu) [Ventolin Hfa Inhaler (Mhu)] 2 puff INHALATION RT-Q6H PRN PRN Reason: Shortness Of Breath Multivit-Mins/Iron/Folic/Lycop [Centrum Men's Tablet] 1 tab PO DAILY Cholecalciferol [Vitamin D3 (10 Mcg = 400 Iu)] 400 unit PO DAILY Lisinopril-Hctz 20-25 mg [Zestoretic 20-25] 1 tab PO DAILY Fish Oil/Dha/Epa [Fish Oil 1,200 mg Fish Oil] 1 cap PO DAILY amLODIPine [Norvasc] 10 mg PO DAILY Clopidogrel [Plavix] 75 mg PO DAILY levETIRAcetam [Keppra] 750 mg PO Q12HR HYDROcodone/APAP 10-325MG [[place] 10-325] 2 tab PO Q6HR PRN PRN Reason: Pain Nicotine 14Mg/24Hr Patch [Habitrol] 1 patch TRANSDERM DAILY Budesonide/Formoterol Fumarate [Budesonide-Formoterol 80-4.5] 1 puff PO BID PRN PRN Reason: sob Discharge Medication List Albuterol Inhaler (Mhu) [Ventolin Hfa Inhaler (Mhu)] 2 puff INHALATION RT-Q6H PRN 09/06/15 [History] Cholecalciferol [Vitamin D3 (10 Mcg = 400 Iu)] 400 unit PO DAILY 09/06/15 [History] Fish Oil/Dha/Epa [Fish Oil 1,200 mg Fish Oil] 1 cap PO DAILY 09/06/15 [History] Lisinopril-Hctz 20-25 mg [Zestoretic 20-25] 1 tab PO DAILY 09/06/15 [History] Multivit-Mins/Iron/Folic/Lycop [Centrum Men's Tablet] 1 tab PO DAILY 09/06/15 [History] allopurinoL [Zyloprim] 100 mg PO DAILY 09/06/15 [History] amLODIPine [Norvasc] 10 mg PO DAILY 03/05/17 [History] Clopidogrel [Plavix] 75 mg PO DAILY 10/08/18 [History] HYDROcodone/APAP 10-325MG [[place] 10-325] 2 tab PO Q6HR PRN 09/19/20 [History] levETIRAcetam [Keppra] 750 mg PO Q12HR 09/19/20 [History] Budesonide/Formoterol Fumarate [Budesonide-Formoterol 80-4.5] 1 puff PO BID PRN 11/05/20 [History] Nicotine 14Mg/24Hr Patch [Habitrol] 1 patch TRANSDERM DAILY 11/05/20 [History] Acetaminophen Tab [Tylenol Tab] 1,000 mg PO Q6HR PRN #30 tablet 11/08/20 [Rx] Follow up Appointment(s)/Referral(s): Taniya Garces MD [STAFF PHYSICIAN] - As Needed (See your oncologist for chemotherapy) Patient Instructions/Handouts: Implanted Venous Access Port (GEN), How to Care for Your Implanted Venous Access Port (DC) Activity/Diet/Wound Care/Special Instructions: Remove dressing on November 12. May shower. No bathtub soaks for 2 weeks, November 22. No wide motions of the right arm to prevent dislodge of your port for 3 weeks. EXPECT BRUISING AND SLEEP WITH 2 TO 3 PILLOWS. BRUISING RESOLVES IN 2 TO 3 WEEKS. Take Tylenol, Aleve or ibuprofen for pain as needed Discharge Disposition: HOME SELF-CARE
[2020-11-08 10:13] VITALS: BP 126/71; PULSE 55
--- NOTE | 2020-11-08 10:19 | XR ---
EXAMINATION TYPE: XR chest 1V confirm line [facility] DATE OF EXAM: 11/08/2020 COMPARISON: Chest x-ray October 03, 2020. Chest CT September 11, 2020 HISTORY: Post line placement. TECHNIQUE: Single frontal view of the chest is obtained. FINDINGS: There is a right internal jugular Mediport catheter terminating in SVC. No pneumothorax not ed. Cardiac silhouette size stable and upper limits of normal. Multilevel spurring in the spine. Virtual Classroom Manager jason emphysematous and pulmonary fibrotic changes. Left suprahilar mass or neoplasm redemonstrated. Sm aller basilar nodules less well seen. New tiny left pleural effusion. IMPRESSION: New right internal jugular Mediport catheter terminates in SVC. No pneumothorax noted.
--- NOTE | 2020-11-08 11:08 | FL ---
EXAMINATION TYPE: FL guided central line placemt HISTORY: Fluoroscopy time Impression: 1. Fluoroscopy support provided to the referring physician. 1 seconds of fluoroscopy provided.
== END 2020-11-08 10:39 | disposition home or self-care (01) ==
LOC: OR 07:02
PROVIDERS: ATTEND Surgery Plastic and Reconstructive Surgery
DX: C34.92 Malignant neoplasm of unspecified part of left bronchus or lung (principal); I11.9 Hypertensive heart disease without heart failure; G40.909 Epilepsy, unspecified, not intractable, without status epilepticus; E78.5 Hyperlipidemia, unspecified; F03.90 Unspecified dementia, unspecified severity, without behavioral disturbance, psychotic disturbance, mood disturbance, and anxiety; J44.9 Chronic obstructive pulmonary disease, unspecified; I25.10 Atherosclerotic heart disease of native coronary artery without angina pectoris; E66.01 Morbid (severe) obesity due to excess calories; M10.9 Gout, unspecified; M19.90 Unspecified osteoarthritis, unspecified site; M54.9 Dorsalgia, unspecified; K59.00 Constipation, unspecified; F40.240 Claustrophobia; Z85.810 Personal history of malignant neoplasm of tongue; Z92.3 Personal history of irradiation; Z68.36 Body mass index [BMI] 36.0-36.9, adult; Z87.891 Personal history of nicotine dependence; Z87.01 Personal history of pneumonia (recurrent); Z57.4 Occupational exposure to toxic agents in agriculture; Z79.02 Long term (current) use of antithrombotics/antiplatelets; Z79.899 Other long term (current) drug therapy; Z98.890 Other specified postprocedural states; Z97.2 Presence of dental prosthetic device (complete) (partial); Z82.49 Family history of ischemic heart disease and other diseases of the circulatory system
CPT/HCPCS: 77001; 36561; C1788; J2250; J1644; J0690; J2405; J2001; J3010; J1642; J2704

== ENCOUNTER → 2020-12-31 | Outpatient (CLI) | payer OTHER ==
[2020-12-31 12:05] LABS: African American GFR (CKD) >90 (>60 ml/min/1.73 sqM); Blood Urea Nitrogen 14 mg/dL (9-20); Non-African American GFR(CKD) >90 (>60 ml/min/1.73 sqM)
--- NOTE | 2020-12-31 21:09 | CT ---
EXAMINATION TYPE: CT chest w con DATE OF EXAM: 12/31/2020 COMPARISON: 09/11/2020 HISTORY: head and neck CA CT DLP: 766 mGycm, Automated exposure control for dose reduction was used. CONTRAST: Performed injected with 100 mL of Isovue 300. TECHNIQUE: Axial images were obtained at 5 mm thick sections. Reconstructed images are reviewed on [employer] computer in the coronal plane. FINDINGS: Portion of the thyroid visualized is normal. There is a 0.4 cm spiculated density in the medial left apex there is a 0.8 cm area of thickening audrey ng the posterior medial right upper lung periphery. There are scattered small areas of pneumonitis wh ich appear to correspond to prior lung nodules. The nodules have largely resolved over the interval l argest residual area is in the posterior left lung base measuring 1.1 cm with some central cavitation . Series 4 image 52. There is a 1.4 cm lymph node in the aortopulmonic window level. There is a 1.5 cm aortopulmonic wind ow lymph node suprahilar region Additional smaller lymphadenopathy is present. Coronary artery calcif ications likely present. Small pericardial effusion is present. The ascending aorta diameter at the l evel of the main pulmonary artery is 3.8 cm. The main pulmonary artery diameter at the bifurcation i s 2.[address] sections are obtained through the upper abdomen. Abdomen is essentially unremarkable. IMPRESSIONS: 1. Previous lung nodules have largely resolved. Some residual areas of pneumonitis at the previous cally ng nodules or some residual smaller cavitation is present in previous nodule location. No new nodules are identified. 2. Enlarged mediastinal lymph nodes have significantly diminished in size over the interval. The caren tional masslike lymphadenopathy in the aortopulmonic window level has largely resolved.
== END | disposition home or self-care (01) ==
LOC: RADCTMAIN 11:02
PROVIDERS: ATTEND Internal Medicine Hematology & Oncology
DX: J18.9 Pneumonia, unspecified organism (principal); R59.0 Localized enlarged lymph nodes
CPT/HCPCS: 82565; 84520; 71260; J1642; Q9967; 36415

== ENCOUNTER → 2021-03-26 | Outpatient (CLI) | payer OTHER ==
[2021-03-26 10:02] LABS: African American GFR (CKD) >90 (>60 ml/min/1.73 sqM); Blood Urea Nitrogen 11 mg/dL (9-20); Non-African American GFR(CKD) >90 (>60 ml/min/1.73 sqM)
--- NOTE | 2021-03-26 14:34 | CT ---
EXAMINATION TYPE: CT ChestAbdPelvis w con DATE OF EXAM: 03/26/2021 COMPARISON: CT chest 12/31/2020, in previous imaging 09/20/2020, 03/17/2019 HISTORY: 75-year-old male C76.0 Follow up head and neck cancer. Upper back pain. Z03.89 TECHNIQUE: Contiguous axial scanning of the chest, abdomen, and pelvis performed with IV Contrast, pa tient injected with 100 mL of Isovue 300. Delayed images through the kidneys were obtained. Coronal/s agittal reconstructions performed. CT DLP: 1996 mGycm Automated exposure control for dose reduction was used. FINDINGS: CHEST: Heart is normal size. Stable small 9 mm anterior pericardial effusion. LAD and circumflex coronary ar long calcifications. Borderline ectatic ascending aorta 3.5 cm. The metatarsal tarsal branching anatomy. Partially visualized posterior postsurgical/posttreatment change along the left side of the larynx. Further interval decrease in the AP window lymph nodes currently measuring up to 1.2 cm versus 1.9 cm , previously. Subcarinal lymph node currently 8 mm thick versus 1.5 cm, previously. No new or progressive thoracic lymphadenopathy. Minimal scattered emphysematous change. No consolidation or pleural effusion. Strandy atelectasis or scarring in the lower lungs; the previous small residual cavities at the site of previous nodules has largely resolved. Minimal residual 8 mm nodule remains at the posterior left base versus 1.2 cm, pre viously no new pulmonary nodules. ABDOMEN: No focal liver lesion or biliary ductal dilatation. Portal venous system is patent. Gallbladder, adrenal glands, right kidney, spleen, and pancreas appear within normal limits. Punctate 2 mm nonobstructive left renal calculus. A few scattered borderline sized mesenteric lymph nodes measuring up to 7 mm are unchanged. Similar moderate-sized fatty umbilical hernia measuring 4.7 cm wide. Mild/moderate atelectatic calcifications abdominal aorta with borderline fusiform ectasia infrarenal abdominal aorta up to 2.6 cm. No dilated small bowel, free fluid, or free air. Mild to moderate scattered stool. Left-sided colonic diverticulosis. No pericolonic inflammatory gallardo ge. Normal appendix. PELVIS: Bladder urine distended. A few pelvic limits. Prostate gland measures 4.1 cm wide. No abnormal fluid collection in the pelvis or pelvic lymphadenopathy. BONES: Facet arthropathy lower lumbar spine. Facet arthropathy lower lumbar spine. Anterior plate spondylosi s upper to mid thoracic spine. No osseous destructive process seen IMPRESSION: 1. FURTHER INTERVAL DECREASE IN SIZE OF THE MEDIASTINAL LYMPH NODES (AP WINDOW NODE 1.2 CM NOW VERSUS 1.9 CM, PREVIOUSLY AND SUBCARINAL NODE 8 MM VERSUS 1.5 CM, PREVIOUSLY). 2. FURTHER DECREASE IN SIZE OF THE LEFT LOWER LOBE PULMONARY NODULE AT 8 MM VERSUS 1.2 CM, PREVIOUSLY . THE OTHER SCATTERED TINY RESIDUAL CAVITARY NODULES SEEN ON 12/31/2020 HAVE OTHERWISE LARGELY RESOLVE D. 3. STABLE SMALL 9 MM ANTERIOR PERICARDIAL EFFUSION. 4. MODERATE-SIZED FATTY UMBILICAL HERNIA UNCHANGED. LEFT-SIDED COLONIC DIVERTICULOSIS WITHOUT ACUTE D IVERTICULITIS.
== END | disposition home or self-care (01) ==
LOC: RADPROMAIN 09:08
PROVIDERS: ATTEND Internal Medicine Hematology & Oncology
DX: I31.3 Pericardial effusion (noninflammatory) (principal); K42.9 Umbilical hernia without obstruction or gangrene; K57.30 Diverticulosis of large intestine without perforation or abscess without bleeding; C76.0 Malignant neoplasm of head, face and neck; Z03.89 Encounter for observation for other suspected diseases and conditions ruled out
CPT/HCPCS: 82565; 84520; 71260; 74177; J1642; Q9967

== ENCOUNTER → 2021-06-18 | Outpatient (CLI) | payer OTHER ==
[2021-06-18 11:52] LABS: African American GFR (CKD) >90 (>60 ml/min/1.73 sqM); Blood Urea Nitrogen 12 mg/dL (9-20); Non-African American GFR(CKD) >90 (>60 ml/min/1.73 sqM)
--- NOTE | 2021-06-18 14:12 | CT ---
EXAMINATION TYPE: CT ChestAbdPelvis w con DATE OF EXAM: 06/18/2021 COMPARISON: 03/26/2021 HISTORY: Cancer follow up CT DLP: 2000.6 mGycm CONTRAST: CT scan of the chest, abdomen and pelvis is performed with Oral Contrast and with IV Contrast, patien t injected with 100 mL of Isovue 300. CT Chest: LUNGS: The lungs are clear and free of infiltrate or atelectasis. Resolution of previously noted pulm onary nodules. No new nodules identified at this time. Scattered areas of parenchymal scarring. No pl eural effusion or CT evidence of interstitial lung disease. MEDIASTINUM: Thoracic aorta is of normal caliber. The heart is not enlarged. Previously noted lymph nodes slightly greater than 1 cm overall less than 1 cm at this time. No new adenopathy. HILAR STRUCTURES: No evidence for mass. No hilar adenopathy is appreciated. OTHER: No significant abnormality. CONTRAST CT ABDOMEN AND PELVIS FINDINGS: LIVER/GB: No calcified gallstones. No space occupying hepatic lesion. Biliary tree is of normal ca liber. PANCREAS: No inflammation. No distinct mass. SPLEEN: No splenic enlargement. No lesion seen. ADRENALS: No nodule. No thickening. KIDNEYS/BLADDER: No hydronephrosis. No nephrolithiasis. No distinct renal mass. BOWEL: Normal appendix. Normal bowel caliber. No inflammation. GENITAL ORGANS: No gross abnormality. LYMPH NODES: No greater than 1cm abdominal or pelvic lymph nodes are appreciated. AORTA: No significant abnormality. OSSEOUS STRUCTURES: No significant abnormality is seen. OTHER: Fat-containing umbilical hernia. IMPRESSION: 1. Resolution of previously noted pulmonary nodules. No new nodules identified at this time. 2. Previously noted lymph nodes slightly greater than 1 cm overall less than 1 cm at this time.
== END | disposition home or self-care (01) ==
LOC: RADCTMAIN 11:04
PROVIDERS: ATTEND Internal Medicine Hematology & Oncology
DX: R91.8 Other nonspecific abnormal finding of lung field (principal)
CPT/HCPCS: 82565; 84520; 71260; 74177; 36415; Q9967

== ENCOUNTER → 2021-10-28 | Outpatient (CLI) | payer OTHER ==
--- NOTE | 2021-10-28 14:32 | CT ---
EXAMINATION TYPE: CT ChestAbdPelvis w con DATE OF EXAM: 10/28/2021 COMPARISON: CT dated 06/18/2021 HISTORY: Head and neck cancer, suspect mets. CT DLP: 2126.8 mGycm Automated exposure control for dose reduction was used. CONTRAST: CT scan of the chest, abdomen and pelvis is performed with Oral Contrast and with IV Contrast, patien t injected with 100 mL of Isovue M300. FINDINGS: LUNGS: Bilateral basal linear pulmonary atelectasis and scarring, progressed compared to the previous CT scan. Minimal infiltration is seen in the left lower lung lobe, associated with left basal medial pleural-based irregular nodule measuring 15 mm, not appreciated previously. Attention on follow-up. No other definite suspicious lung lesion or nodule identified. Patent central airways. No pleural eff usion. MEDIASTINUM: Small pericardial fluid. No gross cardiomegaly. Arterial and coronary atherosclerotic ca lcifications. Right-sided Port-A-Cath with the tip is seen at the inferior aspect of the SVC. Stable scattered subcentimeter bilateral hilar, axillary and mediastinal lymph nodes without interval progre ssion. No progressive lymph nodes seen in the chest. OTHER: Degenerative changes of the lower cervical and the thoracic spine. No aggressive bone lesion. LIVER/GB: No definite hepatic focal lesion. Nondistended contracted gallbladder. PANCREAS: No significant abnormality is seen. SPLEEN: No significant abnormality is seen. ADRENALS: No significant abnormality is seen. KIDNEYS: Scattered bilateral nonobstructing renal calculi versus arterial calcifications measuring up to 8mm at the midpole of the right kidney. Unremarkable kidneys otherwise. BOWEL: Unremarkable stomach, duodenum and small bowel. Uncomplicated colonic diverticulosis most wendy dent involving the sigmoid colon and the descending colon. Segments of nonspecific colonic wall thick ening, please correlate with coloscopy results. REPRODUCTIVE ORGANS: No gross abnormality seen. LYMPH NODES: No greater than 1 cm abdominal or pelvic lymph nodes are appreciated. OSSEOUS STRUCTURES: No aggressive bone lesion. OTHER: Scattered arterial atherosclerotic calcifications. Infrarenal abdominal aortic ectasia measuri ng up to 2.9 cm. No sizable ascites. Sizable fat-containing umbilical hernia. IMPRESSION: 1. Progressive bilateral lower lung lobe linear atelectasis and scarring with newly seen 15 mm pleura l-based left basal medial irregular nodule as described above. This could be related to inflammatory/ infectious process however metastatic lesion cannot be excluded. Recommend short-term follow-up CT sc an in 2 months for reassessment. Alternatively, PET scan can be considered. 2. Stable subcentimeter lymph nodes in the chest without interval progression. Otherwise no evidence of metastatic disease in the chest, abdomen or the pelvis. Incidental findings as described above.
== END | disposition home or self-care (01) ==
LOC: RADPROMAIN 11:24
PROVIDERS: ATTEND Internal Medicine Hematology & Oncology
DX: C76.0 Malignant neoplasm of head, face and neck (principal); J98.11 Atelectasis; R91.1 Solitary pulmonary nodule
CPT/HCPCS: 82565; 84520; 71260; 74177; J1642; Q9967 ×2

== ENCOUNTER → 2021-12-29 | Outpatient (CLI) | payer OTHER ==
[2021-12-29 09:03] LABS: African American GFR (CKD) >90 (>60 ml/min/1.73 sqM); Blood Urea Nitrogen 16 mg/dL (9-20); Non-African American GFR(CKD) 86 (>60 ml/min/1.73 sqM)
--- NOTE | 2021-12-29 11:34 | CT ---
EXAMINATION TYPE: CT chest w con DATE OF EXAM: 12/29/2021 COMPARISON: CT dated 10/28/2021 HISTORY: follow up to head and neck CA CT DLP: 530.8 mGycm Automated exposure control for dose reduction was used. TECHNIQUE: CT scan of the chest is performed with IV Contrast, patient injected with 100 mL of Isovue 300. FINDINGS: LUNGS: Interval regression yet still persistent bilateral lower lobar pulmonary atelectasis. The prev iously seen 15 mm irregular nodule at the medial aspect of the left lung base has completely resolved in the interim. Clustered micronodules are seen at the posterolateral aspect of the right upper lobe , likely inflammatory/infectious in etiology. Newly seen 4 mm faint nodule in the right upper lobe (i mage #19, series 4, with 3 mm pleural-based nodule at the lateral aspect of the middle lobe (image #3 [id number], series 4). Grossly unremarkable remainder of the lungs. Patent trachea and main bronchi. No pleura l effusion. MEDIASTINUM: Grossly stable mediastinal and hilar lymph nodes measuring up to 9 mm in the aortopulmon gabriele window. No obvious progressive lymphadenopathy in the chest. Small pericardial fluid. Coronary an d arterial atherosclerotic calcifications. OTHER: Degenerative changes of the lower cervical and thoracic spine. Grossly unremarkable upper abd omen. IMPRESSION: Interval improvement of the previously seen bilateral basal pulmonary atelectasis with resolution of the previously seen 15 mm left basal medial pulmonary nodule however there are newly seen scattered s mall pulmonary nodules measuring up to 4 mm as detailed above, possibly inflammatory/infectious in et iology however metastatic disease cannot be excluded. Recommend another follow-up CT scan in 3 months for reassessment. Other incidental findings as described above.
== END | disposition home or self-care (01) ==
LOC: RADPROMAIN 08:05
PROVIDERS: ATTEND Internal Medicine Hematology & Oncology
DX: C76.0 Malignant neoplasm of head, face and neck (principal); J98.11 Atelectasis; R91.8 Other nonspecific abnormal finding of lung field
CPT/HCPCS: 82565; 84520; 71260; Q9967

== ENCOUNTER → 2022-05-01 | Outpatient (CLI) | payer OTHER ==
--- NOTE | 2022-05-05 08:56 | PE ---
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 TECHNIQUE: Following the intravenous administration of 1.0 mCi of F-18 FDG, whole body images are p erformed from the skull base to the midthigh. Images are reviewed on the computer in the coronal, ax ial, and sagittal planes. Reconstructed rotating images are created on independent workstation and r eviewed on the computer. A non-contrast CT is performed in conjunction with the PET scan. Glucose l evel 105 mg/dL COMPARISON: CT 11/09/2021, PET/CT 09/20/2020, FINDINGS: Mediastinal SUV mean is 1.8. Hepatic parenchyma SUV mean is 2.6. SKULL BASE AND NECK: FDG activity within the pituitary gland with max SUV 16.4. CHEST, MEDIASTINUM, AND HILAR REGION: No suspicious FDG activity. ABDOMEN AND PELVIS: No suspicious FDG activity. OSSEOUS STRUCTURES: No suspicious FDG activity. OTHER CT: Atherosclerosis of the carotid bifurcations, arterial vasculature and coronary arteries. Ri ght chest Sdraab-f-Dyvp terminating within the superior vena cava. Renal sinus calcifications likely representing vascular etiology. Fat-containing umbilical hernia. Scattered clonic diverticula present . Multilevel disc degeneration changes are seen throughout the osseous structures. Scattered streaky atelectasis seen throughout the lungs. IMPRESSION: 1. No suspicious FDG activity within the neck, chest, abdomen or pelvis. 2. Focal FDG uptake within the pituitary gland. Consider MRI with IV contrast pituitary mass protoco l for further evaluation for underlying primary or secondary lesion.
== END | disposition home or self-care (01) ==
LOC: RADXRMAIN 11:54
PROVIDERS: ATTEND Internal Medicine Hematology & Oncology
DX: C76.0 Malignant neoplasm of head, face and neck (principal)
CPT/HCPCS: 78815; A9552

== ENCOUNTER → 2022-09-11 | Outpatient (CLI) | payer OTHER ==
--- NOTE | 2022-09-14 11:02 | PE ---
EXAMINATION TYPE: PET CT fusion skull to thigh DATE OF EXAM: 09/11/2022 CLINICAL INDICATION:Male, 77 years old with history of C76.0 Head/neck CA; TECHNIQUE: Following the intravenous administration of 11.8 mCi of F-18 FDG, whole body images are performed from the skull base to the midthigh. Images are reviewed on the computer in the coronal, a xial, and sagittal planes. Reconstructed rotating images are created on independent workstation and reviewed on the computer. A non-contrast CT is performed in conjunction with the PET scan. Glucose level 93 mg/dL COMPARISON: CT None, PET/CT 05/01/2022 and PET/CT 09/20/2020. MRI brain 11/04/2020 FINDINGS: Mediastinal SUV mean is 1.8. Hepatic parenchyma SUV mean is 2.7. SKULL BASE AND NECK: No suspicious radiotracer activity. Remonstration of FDG activity within the pi tuitary gland max SUV 26.3, previously 16.4. CHEST, MEDIASTINUM, AND HILAR REGION: No suspicious radiotracer activity. ABDOMEN AND PELVIS: No suspicious radiotracer activity. OSSEOUS STRUCTURES: No suspicious radiotracer activity. OTHER CT: Atherosclerosis of the arterial vasculature including the carotid bifurcation and coronary arteries. Right chest wall Hhobws-s-Ikil distal tip terminating in the superior vena cava/cavoatrial junction. High density gallstones suspected. Fat-containing umbilical hernia. Colonic diverticulosis. Bilateral renal sinus calcifications which could represent atherosclerotic calcifications versus obs tructing calculus IMPRESSION: 1. No suspicious radiotracer activity. 2. Increased pituitary FDG activity compared to prior. Correlate for pituitary adenoma with MRI pitu itary protocol with IV contrast.
== END | disposition home or self-care (01) ==
LOC: RADPETMAIN 08:46
PROVIDERS: ATTEND Internal Medicine Hematology & Oncology
DX: C76.0 Malignant neoplasm of head, face and neck (principal)
CPT/HCPCS: 78815; A9552

== ENCOUNTER → 2023-03-27 | Outpatient (CLI) | payer OTHER ==
--- NOTE | 2023-03-28 10:08 | PE ---
EXAMINATION TYPE: PET CT fusion skull to thigh DATE OF EXAM: 03/27/2023 CLINICAL INDICATION:Male, 77 years old with history of C76.0 Head/neck CA; TECHNIQUE: Following the intravenous administration of 12.5 mCi of F-18 FDG, whole body images are performed from the skull base to the midthigh. Images are reviewed on the computer in the coronal, a xial, and sagittal planes. Reconstructed rotating images are created on independent workstation and reviewed on the computer. A non-contrast CT is performed in conjunction with the PET scan. Glucose level 117 mg/dL COMPARISON: CT None, PET/CT 12/25/2022, FINDINGS: Mediastinal SUV mean is 2.0. Hepatic parenchyma SUV mean is 2.5. SKULL BASE AND NECK: No suspicious radiotracer activity. Remonstration of FDG activity within the pi tuitary gland max SUV 17.8, previously 20.0, 26.3, 16.4. CHEST, MEDIASTINUM, AND HILAR REGION: * No suspicious radiotracer activity. * Mild FDG activity within the left pulmonary hilum max SUV 4.9, previously 4.1. ABDOMEN AND PELVIS: * No suspicious radiotracer activity. * Resolution of right inguinal lymph node seen on prior. OSSEOUS STRUCTURES: No suspicious radiotracer activity. OTHER CT: Atherosclerosis of the arterial vasculature including the carotid bifurcation and coronary arteries. Right chest wall Gjrjsv-w-Exms distal tip terminating in the superior vena cava/cavoatrial junction. High density gallstones suspected. Fat-containing umbilical hernia. Colonic diverticulosis. Bilateral renal sinus calcifications which could represent atherosclerotic calcifications versus obs tructing calculus IMPRESSION: 1. Increasing FDG activity within the left pulmonary hilum lymph node, findings is now suspicious fo r metastatic disease consider tissue sampling. 2. Interval decrease in pituitary FDG activity compared to prior. 3. Resolution of FDG activity within the right inguinal lymph node.
== END | disposition home or self-care (01) ==
LOC: RADPETMAIN 07:34
PROVIDERS: ATTEND Internal Medicine Hematology & Oncology
DX: C76.0 Malignant neoplasm of head, face and neck (principal)
CPT/HCPCS: 78815; A9552

== ENCOUNTER → 2023-06-24 | Outpatient (CLI) | payer OTHER ==
--- NOTE | 2023-06-27 15:16 | PE ---
EXAMINATION TYPE: PET CT fusion skull to thigh DATE OF EXAM: 06/24/2023 COMPARISON: No recent pertinent CTs. MRI pituitary 10/01/2022 Prior PET/CT: 03/27/2023 HISTORY: Head and neck cancer TECHNIQUE: Following the intravenous administration of 11.54 mCi of F-18 FDG, whole body images are performed from the skull base to the midthigh. Images are reviewed on the computer in the coronal, a xial, and sagittal planes. Reconstructed rotating images are created on independent workstation and reviewed on the computer. A localization and attenuation correction CT is performed in conjunction with the PET scan. DLP: 1200.97 mGycm SCAN: Subsequent Blood glucose: 110 mg/dL Average Mediastinum SUV: 2.2 Average Liver SUV: 3.3 FINDINGS: Head and neck: There is some intense uptake with in the sella with an SUV value of 17.72. Full body NECK: Some focal uptake of the anterior left subglottic. Image 42, SUV 6.01. There may be some increased uptake along the posterior left vocal cord level, image 39, SUV 4.39. THORAX: Increased uptake is within the left hilar region, image 79, SUV 8.68 ABDOMEN: No abnormal uptake PELVIS: No abnormal uptake OSSEOUS STRUCTURES: No abnormal uptake LOCALIZATION CT: Scattered lymphadenopathy is in the mediastinum and left peribronchial region. Coron gabriele artery calcification is present. Small pericardial effusion may be present. Anterior abdominal wa ll hernia containing mesenteric fat is present. COMPARISON: The left hilar uptake has increased, previously SUV 4.46. Previous uptake within the righ t vocal cord level is not evident currently. Left vocal cord uptake is new. Uptake within the pituita ry is stable. IMPRESSION: 1. Increasing left hilar uptake suspicious for metastatic disease. 2. Uptake within the left vocal cord level appears to be new. Direct visualization is recommended. Th is could be physiologic with phonation during the exam. 3. Uptake within the pituitary is nonspecific. Primary and metastatic neoplasm is well as normal phys iologic uptake are within the differential. 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
== END | disposition home or self-care (01) ==
LOC: RADPETMAIN 10:08
PROVIDERS: ATTEND Internal Medicine Hematology & Oncology
DX: C76.0 Malignant neoplasm of head, face and neck (principal)
CPT/HCPCS: 78815; A9552

== ENCOUNTER 2023-07-04 11:38 | Emergency (ER) | payer OTHER, MEDICARE ==
[2023-07-04] MEDS ORDERED: ONDANSETRON ODT 4 MG TAB PO STA (12:04)
[2023-07-04 12:08] VITALS: TEMP 98.6
--- NOTE | 2023-07-04 12:08 | ED ---
Recheck HPI - General Chief Complaint: Recheck/Abnormal Lab/Rx Stated Complaint: Right Leg Pain Time Seen by Provider: 07/04/23 11:49 Source: patient, family, RN notes reviewed Mode of arrival: ambulatory Limitations: no limitations - History of Present Illness Initial Comments: Patient is a 78-year-old male presenting to the ER with the chief complaint of right leg pain. Patient was sent here by urgent care. Patient states his right leg has been bothering him for the past couple of days. He states it is extremely painful to walk, touch, move. He denies any injuries or surgeries on that leg. Patient states his ankles are more swollen than normal. Patient was also sent here by urgent care for low-grade fever. Patient [facility] Patient states he has been having recent fevers, productive cough, shortness of breath. Patient denies any headaches, visual changes, congestion, chest pain/palpitations, abdominal pain, urinary symptoms. Family is present in the room upon evaluation and states that he seems somewhat altered from baseline. Patient also reports he has been nauseous today but denies any episodes of vomiting. Patient has been in treatment for cancer for the past 4 years. - Related Data Home Medications Medication Instructions Recorded Confirmed Albuterol Inhaler [Ventolin Hfa 2 puff INHALATION RT-Q6H PRN 09/06/15 11/08/20 Inhaler] Cholecalciferol [Vitamin D3 (10 400 unit PO DAILY 09/06/15 11/08/20 Mcg = 400 Iu)] Fish Oil/Dha/Epa [Fish Oil 1,200 1 cap PO DAILY 09/06/15 11/08/20 mg Fish Oil] Lisinopril-Hctz 20-25 mg 1 tab PO DAILY 09/06/15 11/08/20 [Zestoretic 20-25] Multivit-Mins/Iron/Folic/Lycop 1 tab PO DAILY 09/06/15 11/08/20 [Centrum Men's Tablet] allopurinoL [Zyloprim] 100 mg PO DAILY 09/06/15 11/08/20 amLODIPine [Norvasc] 10 mg PO DAILY 03/05/17 11/08/20 Clopidogrel [Plavix] 75 mg PO DAILY 10/08/18 11/08/20 HYDROcodone/APAP 10-325MG [Sullivan 2 tab PO Q6HR PRN 09/19/20 11/08/20 10-325] levETIRAcetam [Keppra] 750 mg PO Q12HR 09/19/20 11/08/20 Budesonide/Formoterol Fumarate 1 puff PO BID PRN 11/05/20 11/08/20 [Budesonide-Formoterol 80-4.5] Nicotine 14Mg/24Hr Patch [Habitrol] 1 patch TRANSDERM DAILY 11/05/20 11/08/20 Previous Rx's Medication Instructions Recorded Acetaminophen Tab [Tylenol Tab] 1,000 mg PO Q6HR PRN #30 tablet 11/08/20 Allergies Allergy/AdvReac Type Severity Reaction Status Date / Time No Known Allergies Allergy Verified 07/04/23 11:47 Review of Systems ROS Statement: Those systems with pertinent positive or pertinent negative responses have been documented in the HPI. ROS Other: All systems not noted in ROS Statement are negative. 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, exposure to agent orange, last seizure 4 yrs ago, current dx lung cancer, constipation, gout, "borderline cholesterol", diff swallow- constant sore throat History of Any Multi-Drug Resistant Organisms: None Reported Past Surgical History: No Surgical Hx Reported Additional Past Surgical History / Comment(s): neck dissection and lymph node dissection- r/t naldo ca, peg tube insertion and later tube removed, bronchoscopy Past Anesthesia/Blood Transfusion Reactions: Motion Sickness Additional Past Anesthesia/Blood Transfusion Reaction / Comment(s): claustrophobia, hx of lung aspiration after neck surgery Past Psychological History: Anxiety, PTSD Smoking Status: Former smoker Past Alcohol Use History: None Reported Past Drug Use History: None Reported - Past Family History Father History Unknown: Yes Family Medical History: Memory Impairment Additional Family Medical History / Comment(s): from [place] at age 66 Mother Additional Family Medical History / Comment(s): mom is 88 and is healthy- had gallbladder out. General Exam Limitations: no limitations General appearance: alert, in no apparent distress Head exam: Present: atraumatic, normocephalic, normal inspection Eye exam: Present: normal appearance, PERRL, EOMI. Absent: scleral icterus, conjunctival injection, periorbital swelling Neck exam: Present: normal inspection. Absent: tenderness, meningismus, lymphadenopathy Respiratory exam: Present: rhonchi (Bilaterally) Cardiovascular Exam: Present: regular rate, normal rhythm, normal heart sounds. Absent: systolic murmur, diastolic murmur, rubs, gallop, clicks GI/Abdominal exam: Present: soft, normal bowel sounds, hernia (Umbilical hernia noted). Absent: distended, tenderness, guarding, rebound, rigid Extremities exam: Present: other (1+ pitting edema noted bilaterally. 2+ dorsalis pedis pulse bilaterally right leg is exquisitely tender to movement and touch.) Psychiatric exam: Present: normal affect, normal mood Skin exam: Present: warm, dry, intact, normal color. Absent: rash Course Vital Signs 07/04/23 07/04/23 07/04/23 11:43 11:59 12:00 Temperature 98.6 F Pulse Rate 102 H 92 102 H Respiratory 18 20 Rate Blood Pressure 146/86 150/84 150/84 O2 Sat by Pulse 100 Oximetry 07/04/23 07/04/23 07/04/23 12:30 12:45 13:00 Temperature Pulse Rate 81 84 79 Respiratory Rate Blood Pressure 145/75 134/75 143/79 O2 Sat by Pulse Oximetry 07/04/23 07/04/23 07/04/23 13:30 14:00 14:30 Temperature Pulse Rate 76 81 76 Respiratory Rate Blood Pressure 130/77 127/77 140/77 O2 Sat by Pulse Oximetry 07/04/23 07/04/23 15:00 16:00 Temperature Pulse Rate 74 77 Respiratory 20 Rate Blood Pressure 134/74 152/75 O2 Sat by Pulse 94 L Oximetry Medical Decision Making - Medical Decision Making Was pt. sent in by a medical professional or institution (, PA, CONDITIONER TUMBLER OPERATOR, urgent care, hospital, or residential...) When possible be specific @ -Urgent care Did you speak to anyone other than the patient for history (EMS, parent, family, police, friend...)? What history was obtained from this source @ -Family Did you review nursing and triage notes (agree or disagree)? Why? @ -I reviewed and agree with nursing and triage notes Were old charts reviewed (outside hosp., previous admission, EMS record, old EKG, old radiological studies, urgent care reports/EKG's, residential records)? Report findings @ -No old charts were reviewed Differential Diagnosis (chest pain, altered mental status, abdominal pain women, abdominal pain men, vaginal bleeding, weakness, fever, dyspnea, syncope, headache, dizziness, GI bleed, back pain, seizure, CVA, palpatations, mental health, musculoskeletal)? @ -Differential Fever: Pneumonia, viral URI, endocarditis, myocarditis, pericarditis, otitis, sinusitis, peritonsillar Abscess, retropharyngeal Abscess, epiglottitis, peritonitis, appendicitis, Ana cystitis, diverticulitis, hepatitis, colitis, UTI, PID, TOA, pyelonephritis, prostatitis, epididymitis, meningitis, encephalitis, pulmonary embolism, CVA, thyroid storm, pancreatitis, adrenal crisis, cavernous sinus thrombosis, this is not meant to be an all-inclusive list. EKG interpreted by me (3pts min.). @ -As above X-rays interpreted by me (1pt min.). @ -Chest x-ray shows no acute cardiopulmonary processes. CT interpreted by me (1pt min.). @ -None done U/S interpreted by me (1pt. min.). @ -Ultrasound venous Doppler of right lower extremity shows no acute DVT. It is significant for a Marrufo's cyst. What testing was considered but not performed or refused? (CT, X-rays, U/S, labs)? Why? @ -None What meds were considered but not given or refused? Why? @ -Patient refused pain medication. He stated as long as he didn't move his right leg he was fine. Did you discuss the management of the patient with other professionals (professionals i.e. , PA, CONDITIONER TUMBLER OPERATOR, lab, RT, psych nurse, social worker clinical, genetic engineer, teacher, protective officer, manager of case)? Give summary @ -No Was smoking cessation discussed for >3mins.? @ -No Was critical care preformed (if so, how long)? @ -No Were there social determinants of health that impacted care today? How? (Homelessness, low income, unemployed, alcoholism, drug addiction, transportation, low edu. Level, literacy, decrease access to med. care, group home, rehab)? @ -No Was there de-escalation of care discussed even if they declined (Discuss DNR or withdrawal of care, Hospice)? DNR status @ -No What co-morbidities impacted this encounter? (DM, HTN, Smoking, COPD, CAD, Cance r, CVA, ARF, Chemo, Hep., AIDS, mental health diagnosis, sleep apnea, morbid obesity)? @ -Cancer Was patient admitted / discharged? Hospital course, mention meds given and route, prescriptions, significant lab abnormalities, going to OR and other pertinent info. @ -Discharge. Upon examination patient's right leg was exquisitely tender to m ovement and palpation. Ultrasound venous Doppler of right lower extremity shows no acute DVT but it is significant for a Marrufo's cyst. Upon discussion with family they stated he seems somewhat altered. Labs obtained in the ER for within normal limits. Viral swabs were negative. Chest x-ray showed no acute cardiopulmonary processes. EKG showed normal sinus rhythm with no acute T-wave abnormalities. Patient's right knee will be wrapped with an pamela wrap for support. I advised patient to follow-up with orthopedics for further follow-up of right leg pain. Patient will be discharged home in stable condition with follow-up to PCP and orthopedics. Patient and family expressed understanding and agreement with care plan. Undiagnosed new problem with uncertain prognosis? @ -No Drug Therapy requiring intensive monitoring for toxicity (Heparin, Nitro, Insulin, Cardizem)? @ -No Were any procedures done? @ -No Diagnosis/symptom? @ -Marrufo's cyst of right knee Acute, or Chronic, or Acute on Chronic? @ -Acute Uncomplicated (without systemic symptoms) or Complicated (systemic symptoms)? @ -Uncomplicated Side effects of treatment? @ -No Exacerbation, Progression, or Severe Exacerbation? @ -No Poses a threat to life or bodily function? How? (Chest pain, [place], [place], pneumonia, PE, COPD, DKA, ARF, appy, cholecystitis, CVA, Diverticulitis, Homicidal, Suicidal, threat to staff... and all critical care pts) @ -No - Lab Data Result diagrams: 07/04/23 12:17 07/04/23 12:17 Lab Results 07/04/23 07/04/23 07/04/23 Range/Units 12:17 12:17 12:17 WBC 8.6 (3.8-10.6) k/uL RBC 4.87 (4.30-5.90) m/uL Hgb 14.0 (13.0-17.5) gm/dL Hct 40.9 (39.0-53.0) % MCV 84.0 (80.0-100.0) fL MCH 28.8 (25.0-35.0) pg MCHC 34.3 (31.0-37.0) g/dL RDW 15.0 (11.5-15.5) % Plt Count 185 (150-450) k/uL MPV 9.0 Neutrophils % 73 % Lymphocytes % 16 % Monocytes % 8 % Eosinophils % 1 % Basophils % 0 % Neutrophils # 6.3 (1.3-7.7) k/uL Lymphocytes # 1.4 (1.0-4.8) k/uL Monocytes # 0.7 (0-1.0) k/uL Eosinophils # 0.1 (0-0.7) k/uL Basophils # 0.0 (0-0.2) k/uL Sodium 136 L (137-145) mmol/L Potassium 3.5 (3.5-5.1) mmol/L Chloride 98 (98-107) mmol/L Carbon Dioxide 28 (22-30) mmol/L Anion Gap 10 mmol/L BUN 16 (9-20) mg/dL Creatinine 0.63 L (0.66-1.25) mg/dL Est GFR (CKD-EPI)AfAm >90 (>60 ml/min/1.73 sqM) Est GFR (CKD-EPI)NonAf >90 (>60 ml/min/1.73 sqM) Glucose 139 H (74-99) mg/dL Plasma Lactic Acid Del (0.7-2.0) mmol/L Calcium 9.7 (8.4-10.2) mg/dL Magnesium 2.0 (1.6-2.3) mg/dL Total Bilirubin 0.9 (0.2-1.3) mg/dL AST 24 (17-59) U/L ALT 24 (4-49) U/L Alkaline Phosphatase 75 (38-126) U/L Troponin I (0.000-0.034) ng/mL NT-Pro-B Natriuret Pep 28 pg/mL Total Protein 7.5 (6.3-8.2) g/dL Albumin 4.3 (3.5-5.0) g/dL Urine Color Light Yellow Urine Appearance Cloudy (Clear) Urine pH 7.0 (5.0-8.0) Ur Specific [place] 1.014 (1.001-1.035) Urine Protein Trace H (Negative) Urine Glucose (UA) Negative (Negative) Urine Ketones Negative (Negative) Urine Blood Negative (Negative) Urine Nitrite Negative (Negative) Urine Bilirubin Negative (Negative) Urine Urobilinogen <2.0 (<2.0) mg/dL Ur Leukocyte Esterase Negative (Negative) Urine RBC 1 (0-5) /hpf Urine WBC 3 (0-5) /hpf Amorphous Sediment Rare H (None) /hpf Influenza Type A (PCR) (Not Detectd) Influenza Type B (PCR) (Not Detectd) RSV (PCR) (Not Detectd) SARS-CoV-2 (PCR) (Not Detectd) 07/04/23 07/04/23 07/04/23 Range/Units 12:17 12:17 13:05 WBC (3.8-10.6) k/uL RBC (4.30-5.90) m/uL Hgb (13.0-17.5) gm/dL Hct (39.0-53.0) % MCV (80.0-100.0) fL MCH (25.0-35.0) pg MCHC (31.0-37.0) g/dL RDW (11.5-15.5) % Plt Count (150-450) k/uL MPV Neutrophils % % Lymphocytes % % Monocytes % % Eosinophils % % Basophils % % Neutrophils # (1.3-7.7) k/uL Lymphocytes # (1.0-4.8) k/uL Monocytes # (0-1.0) k/uL Eosinophils # (0-0.7) k/uL Basophils # (0-0.2) k/uL Sodium (137-145) mmol/L Potassium (3.5-5.1) mmol/L Chloride (98-107) mmol/L Carbon Dioxide (22-30) mmol/L Anion Gap mmol/L BUN (9-20) mg/dL Creatinine (0.66-1.25) mg/dL Est GFR (CKD-EPI)AfAm (>60 ml/min/1.73 sqM) Est GFR (CKD-EPI)NonAf (>60 ml/min/1.73 sqM) Glucose (74-99) mg/dL Plasma Lactic Acid Del 0.9 (0.7-2.0) mmol/L Calcium (8.4-10.2) mg/dL Magnesium (1.6-2.3) mg/dL Total Bilirubin (0.2-1.3) mg/dL AST (17-59) U/L ALT (4-49) U/L Alkaline Phosphatase (38-126) U/L Troponin I <0.012 (0.000-0.034) ng/mL NT-Pro-B Natriuret Pep pg/mL Total Protein (6.3-8.2) g/dL Albumin (3.5-5.0) g/dL Urine Color Urine Appearance (Clear) Urine pH (5.0-8.0) Ur Specific [place] (1.001-1.035) Urine Protein (Negative) Urine Glucose (UA) (Negative) Urine Ketones (Negative) Urine Blood (Negative) Urine Nitrite (Negative) Urine Bilirubin (Negative) Urine Urobilinogen (<2.0) mg/dL Ur Leukocyte Esterase (Negative) Urine RBC (0-5) /hpf Urine WBC (0-5) /hpf Amorphous Sediment (None) /hpf Influenza Type A (PCR) Not Detected (Not Detectd) Influenza Type B (PCR) Not Detected (Not Detectd) RSV (PCR) Not Detected (Not Detectd) SARS-CoV-2 (PCR) Not Detected (Not Detectd) - EKG Data -: EKG Interpreted by Ne EKG Comments: EKG taken at 12:24. Shows normal sinus rhythm with no acute T-wave abn ormalities noted. Ventricular rate 80, CA interval 192, QRS duration 109, QT/408/443. - Radiology Data Radiology results: report reviewed, image reviewed Disposition Clinical Impression: Marrufo's cyst of knee Disposition: HOME SELF-CARE Condition: Stable Instructions (If sedation given, give patient instructions): Marrufo Cyst (ED) Additional Instructions: Please return to the Emergency Department if symptoms worsen or any other concerns. Is patient prescribed a controlled substance at d/c from ED?: No Referrals: [facility],Clinic [Primary Care Provider] - 1-2 days Time of Disposition: 16:30
[2023-07-04 12:59] VITALS: RESP 20
[2023-07-04 13:03] LABS: Basophils % (A) 0 %; Eosinophils # (A) 0.1 k/uL (0-0.7); Eosinophils % (A) 1 %; HCT 40.9 % (39.0-53.0); Lymphocytes # (A) 1.4 k/uL (1.0-4.8); Lymphocytes % (A) 16 %; MCH 28.8 pg (25.0-35.0); MCHC 34.3 g/dL (31.0-37.0); Monocytes # (A) 0.7 k/uL (0-1.0); Monocytes % (A) 8 %; Neutrophils # (A) 6.3 k/uL (1.3-7.7); Neutrophils % (A) 73 %; Platelet Count 185 k/uL (150-450); RBC 4.87 m/uL (4.30-5.90); WBC 8.6 k/uL (3.8-10.6)
--- NOTE | 2023-07-04 13:14 | XR ---
EXAMINATION TYPE: XR chest 2V DATE OF EXAM: 07/04/2023 12:45 PM CLINICAL INDICATION:Male, 78 years old with history of cough; PHH COMPARISON: Chest radiographs from 11/08/2020 TECHNIQUE: XR chest 2V Frontal and lateral views of the chest. FINDINGS: Lungs/Pleura: There is no evidence of pleural effusion, focal consolidation, or pneumothorax. Pulmonary vascularity: Unremarkable. Heart/mediastinum: Cardiomediastinal silhouette is unremarkable. Musculoskeletal: No acute osseous pathology. Other findings: Right [id number] tip in appropriate position. IMPRESSION: No acute process.
--- NOTE | 2023-07-04 13:16 | US ---
EXAMINATION TYPE: US venous doppler duplex LE RT DATE OF EXAM: 07/04/2023 12:05 PM COMPARISON: NONE CLINICAL INDICATION: Male, 78 years old with history of pain; Right knee pain SIDE PERFORMED: Right TECHNIQUE: The lower extremity deep venous system is examined utilizing real time linear array sonog hans with graded compression, doppler sonography and color-flow sonography. VESSELS IMAGED: Common Femoral Vein Deep Femoral Vein Greater Saphenous Vein * Femoral Vein Popliteal Vein Small Saphenous Vein * Proximal Calf Veins (* superficial vessels) Right Leg: Negative for DVT, possible Marrufo's cyst right pop fossa= 4.7 x 0.6 x 2.6 cm Grayscale, c olor doppler, spectral doppler imaging performed of the deep veins of the lower extremities. There i s normal flow, compressibility, vascular waveforms. IMPRESSION: 1. No evidence for deep vein thrombosis. 2. Popliteal fossa cyst.
[2023-07-04 13:31] LABS: ALT 24 U/L (4-49); AST 24 U/L (17-59); African American GFR (CKD) >90 (>60 ml/min/1.73 sqM); Albumin 4.3 g/dL (3.5-5.0); Alkaline Phosphatase 75 U/L (38-126); Anion Gap 10 mmol/L; Blood Urea Nitrogen 16 mg/dL (9-20); Calcium 9.7 mg/dL (8.4-10.2); Carbon Dioxide 28 mmol/L (22-30); Chloride 98 mmol/L (98-107); Glucose 139 mg/dL (74-99); Non-African American GFR(CKD) >90 (>60 ml/min/1.73 sqM); Potassium 3.5 mmol/L (3.5-5.1); Sodium 136 mmol/L (137-145); Total Bilirubin 0.9 mg/dL (0.2-1.3); Total Protein 7.5 g/dL (6.3-8.2)
[2023-07-04 13:40] LABS: NT-Pro-B-Type Natriuretic Pept 28 pg/mL
[2023-07-04 15:50] LABS: Amorphous Sediment,Urine Rare /hpf; Appearance,Urine Cloudy (Clear); Bilirubin,Urine Negative (Negative); Blood,Urine Negative (Negative); Color,Urine Light Yellow; Glucose,Urine (UA) Negative (Negative); Ketones,Urine Negative (Negative); Leukocyte Esterase,Urine Negative (Negative); Nitrite,Urine Negative (Negative); Protein,Urine Trace (Negative); RBC,Urine 1 /hpf (0-5); Specific Gravity,Urine 1.014 (1.001-1.035); Urobilinogen,Urine <2.0 mg/dL (<2.0); WBC,Urine 3 /hpf (0-5)
[2023-07-04 16:46] VITALS: BP 152/75; PULSE 77
== END 2023-07-04 16:39 | disposition home or self-care (01) ==
LOC: EC 11:38
DX: M71.21 Synovial cyst of popliteal space [Baker], right knee (principal); I10 Essential (primary) hypertension; J44.9 Chronic obstructive pulmonary disease, unspecified; E78.5 Hyperlipidemia, unspecified; M19.90 Unspecified osteoarthritis, unspecified site; G40.909 Epilepsy, unspecified, not intractable, without status epilepticus; Z20.822 Contact with and (suspected) exposure to COVID-19; Z79.51 Long term (current) use of inhaled steroids; Z79.02 Long term (current) use of antithrombotics/antiplatelets; Z79.899 Other long term (current) drug therapy; Z87.891 Personal history of nicotine dependence
CPT/HCPCS: 36415; 71046; 80053; 81001; 83605; 83735; 83880; 84484; 85025; 87636; 93005; 99284

== ENCOUNTER 2023-08-19 11:17 | Day surgery (SDC) | payer MEDICARE, OTHER ==
[2023-08-17 10:17] VITALS: BMI 39.5
[~2023-08-19 11:17] MED LIST changes: -ACETAMINOPHEN TAB 500 MG TAB PO PRN; -HYDROmorphone 0.5 MG/0.5 ML SYRINGE IVP PRN; -MIDAZOLAM 2 MG/2 ML VIAL IV PRN; -ONDANSETRON 4 MG/2 ML VIAL IVP ONE; -Pre Op ABX Message 1 EACH MISC MISCELLANE ONE
[2023-08-19] MEDS ORDERED: LACTATED RINGERS 1,000 ML IV SCH (12:10)
[2023-08-19] MEDS ORDERED: HYDROmorphone 0.5 MG/0.5 ML SYRINGE IVP PRN (12:10)
[2023-08-19] MEDS ORDERED: MIDAZOLAM 2 MG/2 ML VIAL IV PRN (12:10)
[2023-08-19] MEDS ORDERED: DEXAMETHASONE SOD PHOSPHATE 4 MG/ML 1 ML VIAL IV ONE (12:10)
[2023-08-19] MEDS ORDERED: ONDANSETRON 4 MG/2 ML VIAL IVP ONE (12:10)
[2023-08-19] MEDS ORDERED: LIDOCAINE 1% (10MG/ML) FOR IV START INTRADERMA PRN (12:10)
[2023-08-19] MEDS ORDERED: ONDANSETRON 4 MG/2 ML VIAL ONE (12:11)
[2023-08-19 12:15] VITALS: TEMP 97.2
[2023-08-19] MEDS ORDERED: GLYCOPYRROLATE 0.2 MG/ML 2 ML VIAL ONE (12:50)
[2023-08-19] MEDS ORDERED: fentaNYL (PF) 50 MCG/ML 2 ML AMP ONE (12:50)
[2023-08-19] MEDS ORDERED: PROPOFOL 10 MG/ML 20 ML VIAL IV ONE (12:50)
[2023-08-19] MEDS ORDERED: LIDOCAINE 2% (PF) 20 MG/ML 5 ML VIAL ONE (12:50)
[2023-08-19] MEDS ORDERED: SUCCINYLCHOLINE CHLORIDE 200 MG/10 ML VIAL IV ONE (12:50)
[2023-08-19] MEDS ORDERED: NEOSTIGMINE 1 MG/ML 10 ML VIAL ONE (12:50)
[2023-08-19] MEDS ORDERED: ROCURONIUM 10 MG/ML (5 ML VIAL) IV ONE (12:50)
--- NOTE | 2023-08-19 13:54 | P.PCN ---
Date of Procedure: 08/19/23 Preoperative Diagnosis: Tongue cancer Mediastinal lymphadenopathy Postoperative Diagnosis: Tongue cancer Mediastinal lymphadenopathy Procedure(s) Performed: Flexible bronchoscopy and airway inspection Endobronchial ultrasound and mediastinal lymph node evaluation transbronchial needle aspirate of left hilar and subcarinal lymph nodes Anesthesia: GETA (phuong) Surgeon: Estelita Garcia Estimated Blood Loss (ml): 0 Pathology: other Condition: stable Disposition: same day Operative Findings: This is a procedure that was done in the endoscopy suite. The patient was intubated and placed on a mechanical ventilator. The patient was intubated by a 8 orotracheal tube. Intubation process was done by anesthesia. After securing the airway, the flexible bronchoscope was introduced through the orotracheal tube and airways infection was done. The distal trachea was within normal limits. Examination of the right mainstem bronchus, right upper lobe bronchus, bronchus intermedius, right middle lobe bronchus and the right lower lobe bronchus along with a 10 segments on the right were within normal limits. Examination of the left side included the left mainstem bronchus, left upper lobe bronchus, left lower lobe bronchus and the various 8 segments of the left. No endobronchial tumors or lesions. Some scattered distal secretions were encountered that were suctioned out without any major difficulties. The flexible bronchoscope was removed and endobronchial ultrasound was inserted. Careful evaluation of the mediastinal lymph nodes were done using endobronchial ultrasound. Of significance, was a left hilar lymph node identified measuring 18x17 mm and a subcarinal lymph node measuring 15 x 14 mm in size. No significant mediastinal lymphadenopathy along the paratracheal areas on the right than on the left. Using a 22-gauge vizishot needle, transbronchial needle aspirate of the left hilar lymph node was done and a total of 6 passes were taken. Subsequently, the endobronchial ultrasound was multiple subcarinal area and transbronchial needle aspirate of the subcarinal lymph node was also done and a total of 2 passes were taken. There was some limited endobronchial bleed that stopped spontaneously post the biopsy. The endobronchial ultrasound was and the flexible bronchoscope was inserted and therapeutic airway suctioning was done. The airways were free of any secretions at the completion of the procedure. The flexible bronchoscope was removed. The patient is to be extubated and transferred to recovery in stable condition. Samples will be sent for pathologic evaluation. No complications.
[2023-08-19 14:14] VITALS: RESP 16
[2023-08-19 15:03] VITALS: BP 122/75; PULSE 72
== END 2023-08-19 15:02 | disposition home or self-care (01) ==
LOC: ORWHC2ENDO 11:17
PROVIDERS: ATTEND Internal Medicine Critical Care Medicine
DX: C02.9 Malignant neoplasm of tongue, unspecified (principal); R59.0 Localized enlarged lymph nodes; I10 Essential (primary) hypertension; E78.5 Hyperlipidemia, unspecified; F41.9 Anxiety disorder, unspecified; F43.10 Post-traumatic stress disorder, unspecified; Z79.890 Hormone replacement therapy; E03.9 Hypothyroidism, unspecified; M19.90 Unspecified osteoarthritis, unspecified site; J44.9 Chronic obstructive pulmonary disease, unspecified; Z87.891 Personal history of nicotine dependence; Z79.02 Long term (current) use of antithrombotics/antiplatelets; Z79.51 Long term (current) use of inhaled steroids; Z79.899 Other long term (current) drug therapy; Z98.890 Other specified postprocedural states; Z85.810 Personal history of malignant neoplasm of tongue; Z88.8 Allergy status to other drugs, medicaments and biological substances
CPT/HCPCS: 88305; 88342; 88341; 31629; 31652; J0330; J1100; J2710; J2405; J3010; J2704; J2001

== ENCOUNTER → 2023-12-16 | Outpatient (CLI) | payer OTHER ==
--- NOTE | 2023-12-17 13:19 | PE ---
EXAMINATION TYPE: PET CT fusion skull to thigh DATE OF EXAM: 12/16/2023 COMPARISON: No recent pertinent CT Prior PET/CT: 06/24/2023 HISTORY: Head and neck cancer TECHNIQUE: Following the intravenous administration of 11.35 mCi of F-18 FDG, whole body images are performed from the skull base to the midthigh. Images are reviewed on the computer in the coronal, a xial, and sagittal planes. Reconstructed rotating images are created on independent workstation and reviewed on the computer. A localization and attenuation correction CT is performed in conjunction with the PET scan. DLP: 1271.93 mGycm SCAN: Subsequent Blood glucose: 118 mg/dL Average Mediastinum SUV: 2.17 Average Liver SUV: 3.03 FINDINGS: HEAD and NECK: Unremarkable. No suspicious uptake within the submental lymph node is evident on the d edicated images. NECK: There is intense activity within the pituitary. This could be normal. SUV is 18.36. Consider M RI pituitary for closer evaluation. There is some minimal uptake within a small submental lymph node, SUV 2.47. THORAX: No abnormal uptake ABDOMEN: No abnormal uptake PELVIS: No abnormal uptake OSSEOUS STRUCTURES: There is a focal punctate area within the proximal diaphyseal femur on the last i mage, June 25, 2019, SUV 9.11. Metastatic lesion or artifact to be considered consider whole body bone scan for additional evaluation LOCALIZATION CT: There is a periumbilical hernia containing mesenteric fat. Coronary artery calcifica tion is noted. There may be some minimal pericardial effusion. COMPARISON: Pituitary is hyperintense on the prior examination as well. The vague uptake in the hypop harynx not apparent on the current exam. Previous left hilar uptake is not evident on the current exa m. IMPRESSION: 1. Previous left hilar uptake appears resolved. 2. Hypopharynx uptake and thickening is improved. 3. Pituitary uptake remains present. 4. Punctate hyperintensity within the right proximal diaphyseal femur on the final image. This could be artifact. Solitary metastasis to the bone could be considered. Nuclear medicine bone scan may be u seful for additional evaluation.
== END | disposition home or self-care (01) ==
LOC: RADPETMAIN 10:17
PROVIDERS: ATTEND Internal Medicine Hematology & Oncology
DX: C76.0 Malignant neoplasm of head, face and neck (principal)
CPT/HCPCS: 78815; A9552

== ENCOUNTER → 2024-03-30 | Outpatient (CLI) | payer OTHER ==
--- NOTE | 2024-04-20 10:42 | PE ---
EXAMINATION TYPE: PET CT fusion skull to thigh DATE OF EXAM: 04/10/2024 CLINICAL INDICATION: Head and neck cancer. TECHNIQUE: Following the intravenous administration of 11.96 mCi of F-18 FDG, whole body images are performed from the skull base to the midthigh. Images are reviewed on the computer in the coronal, axial, and sagittal planes. Reconstructed rotating images are created on independent workstation and reviewed on the computer. A non-contrast CT is performed in conjunction with the PET scan. Glucose level 127 mg/dL CT DLP: 215 mGycm, Automated exposure control for dose reduction was used. COMPARISON: CT 12/16/2023, PET/CT None, MRI: None FINDINGS: Mediastinal SUV mean is 2.0. Hepatic parenchyma SUV mean is 3.1. SKULL BASE AND NECK: No suspicious radiotracer activity. CHEST, MEDIASTINUM, AND HILAR REGION: Left perihilar uptake max SUV 4.6, previously 4.6. This is an a fiorella of ill-defined soft tissue around the hilum. There is a large airway narrowing in the left lower lobe airways in the hilum. Atelectasis laterally left greater than right lower lobes. ABDOMEN AND PELVIS: No suspicious radiotracer activity. MUSCULOSKELETAL STRUCTURES: No suspicious radiotracer activity. OTHER CT: Atherosclerosis of the carotid bifurcations. Right chest wall [id number] terminating at the superior vena cava. Atherosclerosis of the coronary arteries. Nonobstructing bilateral renal calc darrius versus vascular calcifications in the renal sinuses. Fat-containing umbilical hernia. Scattered c olonic diverticula. IMPRESSION: 1. Ill-defined soft tissue around the left pulmonary hilum with mild uptake in some atelectasis in t he left lower lobe. FDG activity not significantly changed from prior. Findings could represent postt reatment change. Continued surveillance recommended. No additional areas of suspicious FDG activity v isualized.
== END | disposition home or self-care (01) ==
LOC: RADPETMAIN 11:01
PROVIDERS: ATTEND Internal Medicine Hematology & Oncology
DX: C76.0 Malignant neoplasm of head, face and neck (principal); J98.11 Atelectasis; I25.10 Atherosclerotic heart disease of native coronary artery without angina pectoris
CPT/HCPCS: 78815; A9552

== ENCOUNTER 2024-06-12 10:23 | Emergency (ER) | payer OTHER ==
--- NOTE | 2024-06-12 11:04 | ED ---
Chest Pain HPI - General Chief Complaint: Chest Pain Stated Complaint: Chest pain Time Seen by Provider: 06/12/24 10:30 Source: patient, RN notes reviewed Mode of arrival: ambulatory Limitations: no limitations - History of Present Illness Initial Comments: This is a 79-year-old male who presents to the emergency department for chest pain. States that yesterday he was doing yard work outside and started to develop centralized chest pain/pressure. This resolved shortly after he finished the yard work. Today he went to take out the trash and while he was exerting himself he noticed the chest pain again. This time it resolved after about 10 minutes when the exertion had stopped. Denies any radiation of pain. Denies any shortness of breath. He has no history of cardiac problems. He spoke with his primary care provider and was instructed to come to the emergency department for evaluation. His father of a heart attack when he was 68. MD Complaint: chest pain - Related Data Home Medications Medication Instructions Recorded Confirmed Albuterol Inhaler [Ventolin Hfa 2 puff INHALATION RT-QID PRN 09/06/15 06/12/24 Inhaler] amLODIPine [Norvasc] 10 mg PO DAILY 03/05/17 06/12/24 levETIRAcetam [Keppra] 750 mg PO BID 09/19/20 06/12/24 Lactose-Reduced Food [Ensure Plus] 1 can PO BID 07/28/23 06/12/24 oxyCODONE HCL [OxyIR] 5 - 10 mg PO Q6H PRN 07/28/23 06/12/24 Acetaminophen Tab [Tylenol] 325 mg PO Q6H PRN 06/12/24 06/12/24 Aluminum Chloride Hexahydrate 20% 1 applic TOPICAL DAILY 06/12/24 06/12/24 Topical Solution Cholecalciferol [Vitamin D3 (10 10 mcg PO DAILY 06/12/24 06/12/24 Mcg = 400 Iu)] Docusate [Colace] 100 mg PO TID PRN 06/12/24 06/12/24 Ketoconazole 2% Cream [Nizoral 2%] 1 applic TOPICAL BID 06/12/24 06/12/24 Levothyroxine Sodium [Synthroid] 137 mcg PO AC-BRKFST 06/12/24 06/12/24 Lisinopril-Hctz 20-25 mg 1 tab PO DAILY 06/12/24 06/12/24 [Zestoretic 20-25] Naloxone HCl [Narcan] 4 mg NASAL DIRECTED PRN 06/12/24 06/12/24 allopurinoL 200 mg PO DAILY 06/12/24 06/12/24 polyethylene glycoL 3350 [Miralax] 17 gm PO DAILY 06/12/24 06/12/24 Previous Rx's Medication Instructions Recorded Azithromycin [Zithromax] 250 mg PO DIRECTED 5 Days #6 tab 06/12/24 Allergies Allergy/AdvReac Type Severity Reaction Status Date / Time bupropion [From Zyban] AdvReac Unknown Verified 06/12/24 11:49 fluvastatin [From Lescol] AdvReac myositis Verified 06/12/24 11:49 simvastatin [From Zocor] AdvReac muscle pain Verified 06/12/24 11:49 Review of Systems ROS Statement: Those systems with pertinent positive or pertinent negative responses have been documented in the HPI. ROS Other: All systems not noted in ROS Statement are negative. 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 Gallo. History of Any Multi-Drug Resistant Organisms: None Reported Past Surgical History: No Surgical Hx Reported Additional Past Surgical History / Comment(s): neck dissection and lymph node dissection- r/t naldo ca, peg tube insertion and later tube removed, bronchoscopy, Past Anesthesia/Blood Transfusion Reactions: No Reported Reaction, Motion Sickness Additional Past Anesthesia/Blood Transfusion Reaction / Comment(s): claustrophobia, hx of lung aspiration after neck surgery Past Psychological History: Anxiety, PTSD Smoking Status: Former smoker - Past Family History Father History Unknown: Yes Family Medical History: Memory Impairment Additional Family Medical History / Comment(s): from mi at age 66. grandmother had "female" cancer. Mother Additional Family Medical History / Comment(s): mom is 88 and is healthy- had gallbladder out. General Exam Limitations: no limitations General appearance: alert, in no apparent distress Head exam: Present: atraumatic, normocephalic, normal inspection Respiratory exam: Present: normal lung sounds bilaterally. Absent: respiratory distress, wheezes, rales, rhonchi, stridor Cardiovascular Exam: Present: regular rate, normal rhythm, normal heart sounds. Absent: systolic murmur, diastolic murmur, rubs, gallop, clicks Neurological exam: Present: alert, oriented X3, CN II-XII intact Psychiatric exam: Present: normal affect, normal mood Skin exam: Present: warm, dry, intact, normal color. Absent: rash Course Vital Signs 06/12/24 06/12/24 10:25 16:11 Temperature 98.7 F 98.1 F Pulse Rate 95 71 Respiratory 16 18 Rate Blood Pressure 187/94 152/98 O2 Sat by Pulse 97 98 Oximetry Chest Pain MDM - MDM This is a 79-year-old male who presents to the emergency department for chest pain. Was pt. sent in by a medical professional or institution? @ -No Did you speak to anyone other than the patient for history? @ -No Did you review nursing and triage notes? @ -Yes, and I agree, it is accurate with regards to the patient's symptoms. Were old charts reviewed? @ -No Differential Diagnosis? @ -Differential Chest Pain: Stable Angina, Unstable Angina, STEMI, NSTEMI Aortic Dissection, Pneumothorax, Musculoskeletal, Esophageal Spasm GERD, Cholecystitis, Pancreatitis, Zoster, this is not meant to be an all-inclusive list. EKG interpreted by me (3pts min.)? @ -EKG interpreted by me demonstrating the following: Ectopic atrial rhythm. Ventricular rate 89 bpm, SD interval 152 ms, QRS duration 100 ms, QTc 396 ms. X-rays interpreted by me (1pt min.)? @ -Chest x-ray obtained. My interpretation identifies right lower lobe airspace opacities. CT interpreted by me (1pt min.)? @ -Not obtained U/S interpreted by me (1pt. min.)? @ -Not obtained What testing was considered but not performed? (CT, X-rays, U/S, labs)? Why? @ -None What meds were considered but not given? Why? @ -None Did you discuss the management of the patient with other professionals? @ -No Did you reconcile home meds? @ -No Was smoking cessation discussed for >3mins.? @ -No Was critical care preformed (if so, how long)? @ -No Were there social determinants of health that impacted care today? How? (Homelessness, low income, unemployed, alcoholism, drug addiction, transportation, low edu. Level, literacy, decrease access to med. care, longterm, rehab)? @ -No Was there de-escalation of care discussed even if they declined? (Discuss DNR or withdrawal of care, Hospice)? @ -No What co-morbidities impacted this encounter? (DM, HTN, Smoking, COPD, CAD, Cancer, CVA, Hep., AIDS, mental health diagnosis, sleep apnea, morbid obesity)? @ -Cancer, COPD, HLD, HTN Was patient admitted / discharged? @ -Lab work demonstrates initial troponin of 0.020. Lab work otherwise unremarkable. Chest x-ray demonstrates right lower lobe airspace opacities. Patient denies any URI symptoms or shortness of breath. Given the exertional nature of his symptoms as well as his age and comorbidities, I strongly advised admission. However, he declined. He was agreeable to a repeat troponin. Troponin repeated at the 3-hour jeanie and found to be 0.029. I again went to have a discussion with the patient and continued to strongly advise admission for further evaluation with cardiology consult. He continued to decline and request discharge home. Discussed that his symptoms could very well be cardiac in nature and he needs to be further evaluated by cardiology. He expresses understanding and again declines admission. He is understanding of the risks, including , if he is to be discharged home. He was given very strict return parameters and advised that he needs to call EMS immediately if the pain returns. Given the possibility of pneumonia on the chest x-ray, will start the patient on azithromycin and this was prescribed. Case discussed with ED att ending, Dr. Eid. Return precautions reviewed in depth, the patient is instructed to return to the emergency department with any new, worsening, or concerning symptoms. Patient verbalized understanding. Undiagnosed new problem with uncertain prognosis? @ -None Drug Therapy requiring intensive monitoring for toxicity (Heparin, Nitro, Insulin, Cardizem)? @ -None Were any procedures done? @ -None Diagnosis/symptom? @ -Chest pain, pneumonia Acute, or Chronic, or Acute on Chronic? @ -Acute Uncomplicated (without systemic symptoms) or Complicated (systemic symptoms)? @ -Uncomplicated Side effects of treatment? @ -None Exacerbation, Progression, or Severe Exacerbation] @ -Not applicable Poses a threat to life or bodily function? @ -This will depend on the cause Disposition Clinical Impression: Chest pain, Pneumonia Disposition: HOME SELF-CARE Instructions (If sedation given, give patient instructions): Chest Pain (ED) Additional Instructions: If you develop any more episodes of chest pain, please return to the emergency department immediately or call 911. You need to follow-up with your primary care provider in the next 1 to 2 days. You should also follow-up with cardiology listed below. Because the x-ray showed possible pneumonia we will treat you with a course of antibiotics. This will be taken for 5 days. Prescriptions: Azithromycin [Zithromax] 250 mg PO DIRECTED 5 Days #6 tab Is patient prescribed a controlled substance at d/c from ED?: No Referrals: [facility],Clinic [Primary Care Provider] - 1-2 days Nicanor Mclean MD [STAFF PHYSICIAN] - 1-2 days Time of Disposition: 15:33
[2024-06-12] MEDS: ASPIRIN 81 MG PO STA (11:23)
[2024-06-12 11:35] LABS: Basophils % (A) 0 %; Eosinophils # (A) 0.1 k/uL (0-0.7); Eosinophils % (A) 2 %; HGB 15.3 gm/dL (13.0-17.5); Lymphocytes # (A) 0.8 k/uL (1.0-4.8); Lymphocytes % (A) 15 %; MCH 29.1 pg (25.0-35.0); MCHC 33.2 g/dL (31.0-37.0); MCV 87.6 fL (80.0-100.0); Mean Platelet Volume 8.9; Monocytes # (A) 0.4 k/uL (0-1.0); Monocytes % (A) 8 %; Neutrophils # (A) 3.7 k/uL (1.3-7.7); Neutrophils % (A) 72 %; Platelet Count 169 k/uL (150-450); RBC 5.25 m/uL (4.30-5.90); RDW 14.7 % (11.5-15.5); WBC 5.1 k/uL (3.8-10.6)
[2024-06-12 11:44] LABS: INR 0.9 (<1.2); Prothrombin Time 10.3 sec (10.0-12.5)
--- NOTE | 2024-06-12 11:48 | XR ---
EXAMINATION TYPE: XR chest 2V DATE OF EXAM: 06/12/2024 11:34 AM CLINICAL INDICATION: Male, 79 years old with history of Chest Pain; COMPARISON: Chest radiographs from 07/04/2023 TECHNIQUE: XR chest 2V Frontal view of the chest. FINDINGS: Lungs/Pleura: Right lower lobe airspace opacities. There is no evidence of pleural effusion, focal co nsolidation, or pneumothorax. Pulmonary vascularity: Unremarkable. Heart/mediastinum: Cardiomediastinal silhouette is unremarkable. Musculoskeletal: No acute osseous pathology. Right chest wall [id number] with tip entering the superior vena cava. IMPRESSION: Right lower lobe airspace opacities correlate for developing pneumonia. [facility], , 06/12/2024 11:46 AM
[2024-06-12 11:51] LABS: ALT 25 U/L (4-49); AST 26 U/L (17-59); African American GFR (CKD) >90 (>60 ml/min/1.73 sqM); Albumin 4.5 g/dL (3.5-5.0); Alkaline Phosphatase 70 U/L (38-126); Anion Gap 4 mmol/L; Blood Urea Nitrogen 16 mg/dL (9-20); Calcium 9.9 mg/dL (8.4-10.2); Carbon Dioxide 30 mmol/L (22-30); Chloride 105 mmol/L (98-107); Glucose 174 mg/dL (74-99); Lipase 81 U/L (23-300); Magnesium 1.8 mg/dL (1.6-2.3); Non-African American GFR(CKD) >90 (>60 ml/min/1.73 sqM); Potassium 3.6 mmol/L (3.5-5.1); Sodium 139 mmol/L (137-145); Total Bilirubin 0.8 mg/dL (0.2-1.3); Total Protein 7.5 g/dL (6.3-8.2)
[2024-06-12] MEDS: KETOROLAC 15 MG/ML 1 ML VIAL IVP STA (13:52)
[2024-06-12] MEDS: oxyCODONE-APAP 5-325MG 1 EACH TAB PO STA (13:56)
[2024-06-12 16:13] VITALS: BP 152/98; PULSE 71; RESP 18; TEMP 98.1
== END 2024-06-12 16:13 | disposition home or self-care (01) ==
LOC: EC 10:23
CPT/HCPCS: 36415; 71046; 80053; 83690; 83735; 84484; 85025; 85610; 85730; 93005; 96374; 99285

== ENCOUNTER → 2024-07-01 | Outpatient (CLI) | payer OTHER ==
[2024-07-01 22:49] LABS: HCT 43.2 % (39.6-50.0); HGB 14.1 g/dL (13.0-17.0); MCH 28.7 pg (27.0-32.0); MCHC 32.6 g/dL (32.0-37.0); MCV 87.8 FL (80.0-97.0); Mean Platelet Volume 12.1 FL (9.5-12.2); NRBC Per 100 WBC 0 X 10*3/uL (0.00-0.01); Platelet Count 190 X 10*3/uL (140-440); RBC 4.92 X 10*6/uL (4.40-5.60); RDW 15.1 % (11.5-14.5); WBC 6.27 X 10*3/uL (4.50-10.00)
[2024-07-01 23:09] LABS: BUN/Creat Ratio 20.25 Ratio (12.00-20.00); Blood Urea Nitrogen 16.2 mg/dL (9.0-27.0); Calcium 9.5 mg/dL (8.7-10.3); Carbon Dioxide 28.1 mmol/L (21.6-31.8); Chloride 102 mmol/L (96-109); Glucose 127 mg/dL (70-110); Sodium 140 mmol/L (135-145)
== END | disposition home or self-care (01) ==
LOC: LABWHC1 08:59
PROVIDERS: ATTEND Internal Medicine Cardiovascular Disease
DX: R07.2 Precordial pain (principal)
CPT/HCPCS: 36415; 80048; 85027

== ENCOUNTER 2024-07-06 06:07 | Observation (INO) | payer OTHER ==
[2024-07-03 16:20] VITALS: BMI 40.4
[2024-07-06] MEDS: IV FLUID CONTINUATION 1,000 ML IV ONE (06:41)
[2024-07-06] MEDS ORDERED: NITROGLYCERIN SL TABS 0.4 MG TAB SUBLINGUAL PRN ×2 (06:41→15:44)
[2024-07-06] MEDS ORDERED: ALPRAZolam 0.5 MG TAB PO PRN (06:41)
[2024-07-06] MEDS ORDERED: HEPARIN SODIUM,PORCINE (1 ML) 2,500 UNIT in SODIUM CHLORIDE 0.9% 250 ML IRRIGATION PRN (07:00)
[2024-07-06] MEDS ORDERED: HEPARIN SODIUM,PORCINE 10,000 UNIT in SODIUM CHLORIDE 0.9% 1,000 ML IRRIGATION PRN (07:00)
[2024-07-06] MEDS: MIDAZOLAM 2 MG/2 ML VIAL IVP ONE (07:33)
[2024-07-06] MEDS: fentaNYL (PF) 50 MCG/ML 2 ML AMP IVP ONE (07:33)
[2024-07-06] MEDS: HEPARIN SODIUM,PORCINE 10,000 UNIT in SODIUM CHLORIDE 0.9% 1,000 ML IRRIGATION ONE (07:34)
[2024-07-06] MEDS: HEPARIN SODIUM,PORCINE (1 ML) 2,500 UNIT in SODIUM CHLORIDE 0.9% 250 ML IRRIGATION ONE (07:34)
[2024-07-06] MEDS: LIDOCAINE 1% INJ 10MG/ML (20 ML MDV) SQ ONE (07:36)
[2024-07-06] MEDS: VERAPAMIL SYRINGE (5 MG/10 ML) INTRAARTER ONE (07:38)
[2024-07-06] MEDS: HEPARIN SODIUM 1,000 UN/ML (10ML VL) IV ONE (07:40)
[2024-07-06] MEDS: IOPAMIDOL-370 100ML BTL INJ ONE (07:55)
--- NOTE | 2024-07-06 08:30 | CC ---
CARDIAC CATHETERIZATION REPORT INDICATION: Unstable angina. PROCEDURE NOTE: After obtaining informed consent, left heart catheterization and coronary angiogram were performed via the right radial artery using standard Bill catheters. The patient tolerated the procedure well without any obvious immediate complications. The patient received moderate conscious sedation. Total sedation time was 14 minutes. Right radial artery access was obtained using Seldinger technique. A 6-Urdu sheath was placed. Catheters and wires were floated into the ascending aorta under fluoroscopic guidance. The patient received verapamil and heparin per protocol. FINDINGS: 1. Hemodynamics: Left ventricular end-diastolic pressure is 10 to 12 mm. There is no significant gradient across the aortic valve. 2. Left ventriculogram: Left ventriculogram is not performed. 3. Angiographic data: Left main coronary artery: Left main coronary artery is a normal-sized vessel and is free of stenosis, divides into circumflex coronary artery and left anterior descending coronary artery. Circumflex coronary artery is a nondominant vessel that shows mild nonobstructive disease distally. LAD appears there is a focal area of 95% stenosis involving the LAD just proximal to the second diagonal branch. At its worst, it seems to be a 90% stenosis and the blockage affects the ostial portion of the diagonal also. Right coronary artery is a large dominant vessel that shows a 99% focal stenosis involving mid RCA. Vessel is calcified, and just before its bifurcation into PDA and PLV, there is a 70% stenosis noted. CONCLUSION: Severe two-vessel coronary artery disease as described above. PLAN: I am going to consult Dr. Griffin to evaluate the patient for surgical revascularization. Dr. River, the on-call shrimp peeler, reviewed the angiographic data, and felt that the intervention of the LAD is high risk, and there is a risk of losing the large caliber diagonal branch. I will admit the patient, and hopefully, the surgical revascularization can be done fairly soon. MMODL / IJN: [id number] /
[2024-07-06] MEDS ORDERED: RX INFO: IV CONTRAST WAS GIVEN 1 EACH MISC MISCELLANE PRN (09:08)
--- NOTE | 2024-07-06 11:20 | P.GSCN ---
History of Present Illness Consult date: 07/06/24 Reason for Consult: Coronary artery disease Requesting physician: Yogi Sheth History of present illness: This is a 79-year-old gentleman who follows outpatient with Dr. Jackson for primary care. He has a previous medical history of hypertension, hyperlipidemia, hypothyroid, head neck cancer diagnosed in 2018 status post surgical resection/chemo/radiation, COPD, remote pneumonia, previous tobacco dependence, occasional EtOH use, and family history of coronary artery disease with father from myocardial infarction at 66 years old. Apparently he has been noticing intermittent episodes of substernal chest pain with exertion. He endorsed some shortness of breath with these episodes but no nausea/vomiting/diaphoresis/or any other symptomatology. He presented to [facility] emergency room at the end of May 2024 for the same symptoms, he did have mild elevation of his troponins and EKG demonstrating nonspecific ST changes and was recommended to be admitted to the hospital with consultation to cardiology. He declined at that time and sought follow-up outpatient with cardiology, he saw Dr. Sheth in the office who recommended heart catheterization. Catheterization was completed today by Dr. Sheth demonstrating LAD stenosis 95% with extension into the ostial diagonal coronary artery, mid RCA stenosis 99%, as well as 70% stenosis at the bifurcation of the PDA and PLV. Due to these findings consultation was placed to Dr. Griffin from cardiothoracic surgery for surgical revascularization recommendations. 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 Gallo. Remote pneumonia History of Any Multi-Drug Resistant Organisms: None Reported Additional Past Surgical History / Comment(s): neck dissection and lymph node dissection- r/t naldo ca, peg tube insertion and later tube removed, bronchoscopy, Past Anesthesia/Blood Transfusion Reactions: No Reported Reaction, Motion Sickness Additional Past Anesthesia/Blood Transfusion Reaction / Comm: claustrophobia, hx of lung aspiration after neck surgery. Past Psychological History: No Psychological Hx Reported Smoking Status: Former smoker Past Alcohol Use History: Occasional Additional Past Alcohol Use History / Comment(s): Drinks 2-3 beers 2 times per week Past Drug Use History: None Reported Additional History: Quit smoking in 2018 - Past Family History Father History Unknown: Yes Family Medical History: Memory Impairment Additional Family Medical History / Comment(s): from mi at age 66. grandmo ther had "female" cancer. Mother Additional Family Medical History / Comment(s): mom is 95 and is healthy- had gallbladder out. Medications and Allergies Home Medications Medication Instructions Recorded Confirmed Type Albuterol Inhaler [Ventolin Hfa 2 puff INHALATION RT-QID PRN 09/06/15 07/06/24 History Inhaler] amLODIPine [Norvasc] 10 mg PO QAM 03/05/17 07/06/24 History levETIRAcetam [Keppra] 750 mg PO BID 09/19/20 07/06/24 History Lactose-Reduced Food [Ensure Plus] 1 can PO BID 07/28/23 07/06/24 History oxyCODONE HCL [OxyIR] 5 - 10 mg PO Q6H PRN 07/28/23 07/06/24 History Acetaminophen Tab [Tylenol] 325 mg PO Q6H PRN 06/12/24 07/03/24 History Aluminum Chloride Hexahydrate 20% 1 applic TOPICAL DAILY 06/12/24 07/03/24 History Topical Solution Cholecalciferol [Vitamin D3 (10 10 mcg PO QAM 06/12/24 07/03/24 History Mcg = 400 Iu)] Docusate [Colace] 100 mg PO TID PRN 06/12/24 07/03/24 History Ketoconazole 2% Cream [Nizoral 2%] 1 applic TOPICAL BID 06/12/24 07/03/24 History Levothyroxine Sodium [Synthroid] 137 mcg PO AC-BRKFST 06/12/24 07/06/24 History Lisinopril-Hctz 20-25 mg 1 tab PO QAM 06/12/24 07/06/24 History [Zestoretic 20-25] Naloxone HCl [Narcan] 4 mg NASAL DIRECTED PRN 06/12/24 07/03/24 History allopurinoL 200 mg PO QAM 06/12/24 07/06/24 History polyethylene glycoL 3350 [Miralax] 17 gm PO DAILY 06/12/24 07/03/24 History Isosorbide Mononitrate ER [Imdur] 30 mg PO QAM 07/03/24 07/06/24 History Milk Thistle 300 mg PO QAM 07/03/24 07/06/24 History Nitroglycerin Sl Tabs [Nitrostat] 0.4 mg SUBLINGUAL Q5M PRN 07/03/24 07/03/24 History Allergies Allergy/AdvReac Type Severity Reaction Status Date / Time bupropion [From Zyban] AdvReac Unknown Verified 07/03/24 15:56 fluvastatin [From Lescol] AdvReac myositis Verified 07/03/24 15:56 simvastatin [From Zocor] AdvReac muscle pain Verified 07/03/24 15:56 Surgical - Exam Vital Signs Temp Pulse Resp BP Pulse Ox 98.2 F 97 20 132/73 95 07/06/24 06:53 07/06/24 06:53 07/06/24 06:53 07/06/24 06:53 07/06/24 06:53 CONSTITUTIONAL: Awake and alert, appears comfortable, cooperative, well- developed, well-nourished, no pain, no acute distress EYES: Pupils equal, round, reactive to light, normal ocular movement ENT: Moist mucous membranes without oral lesions present NECK: No masses, no bruits, trachea midline RESPIRATORY: Lungs sounds clear to auscultation bilaterally. Respirations even, nonlabored. Currently on room air with oxygen saturation 97%. Strong cough. No chest wall deformities. No clubbing or cyanosis present CARDIOVASCULAR: S1, S2 present. Regular rate and rhythm, sinus rhythm on telemetry. Palpable peripheral pulses bilaterally. No edema present. No calf pain or tenderness noted. No significant lower extremity varicosities noted GASTROINTESTINAL: Abdomen soft, nontender, nondistended without masses or organomegaly noted. There is no rebound or guarding present. Active bowel sounds present 4 quadrants. GENITOURINARY: Deferred INTEGUMENTARY: Skin is warm and dry NEUROLOGIC: Cranial nerves II through XII intact, normal coordination, no obvious motor or sensory deficits, speech is normal MUSKULOSKELETAL: Able to move all extremities, strength equal bilaterally, normal posture PSYCHIATRIC: Alert and oriented to person place and time, appropriate affect, intact judgment and insight CLINICAL FRAILTY SCORE 3 Results - Imaging Additional studies: Heart catheterization films reviewed Assessment and Plan Assessment: Double vessel coronary artery disease Chest pain secondary to above History of hypertension Hyperlipidemia Hypothyroid Head neck cancer diagnosed in 2018 status post surgical resection/chemo/radiation COPD Remote pneumonia Previous tobacco dependence Occasional EtOH use Family history of coronary artery disease with father from myocardial infarction at 66 years old Plan: The patient was seen and examined sitting up on a cart in the Extended Stay unit with family member present. Chart/diagnostics reviewed. The case will be discussed in detail with Dr. Griffin. The patient currently reports no chest pain or shortness of breath. The usual perioperative course of open-heart surgery was discussed in detail with the patient and his family, risks and benefits were reviewed, all questions were answered. At this time the patient states he is leaning towards no surgery, would prefer stenting even though he was told that stenting would be high risk given the nature of his disease. Both the patient and his family member indicate they are not interested in surgery although they are willing to speak with Dr. Griffin. Will hold off on any preoperative testing at this time. Once Dr. Griffin has seen and evaluated the patient more recommendations will be made. Thank you Dr. Sheth for this consult. I have personally seen and examined the patient, performed the documentation and the assessment and plan as written. Number of minutes spent on the visit: 30. ROME Serrano
[2024-07-06] MEDS: ASPIRIN 325 MG TAB PO STA (14:00)
[2024-07-06] MEDS: SODIUM CHLORIDE 0.9% 1,000 ML in EMPTY BAG 1 BAG IV SCH (14:00)
[2024-07-06] MEDS ORDERED: ACETAMINOPHEN TAB 325 MG TAB PO PRN (15:44)
[2024-07-06] MEDS ORDERED: DOCUSATE 100 MG CAP PO PRN (15:44)
[2024-07-06] MEDS ORDERED: ALBUTEROL NEBULIZED 2.5 MG/3 ML INHALATION PRN (15:44)
[2024-07-06] MEDS: ALPRAZolam 0.25 MG TAB PO PRN (20:02)
[2024-07-06] MEDS: CLOTRIMAZOLE 1% CREAM 30 GM TUBE TOPICAL SCH (20:03)
[2024-07-07] MEDS: ASPIRIN 325 MG TAB PO ONE (05:09)
[2024-07-07] MEDS: ISOSORBIDE MONONITRATE ER 30 MG TAB.ER.24H PO SCH (05:09)
[2024-07-07] MEDS: METOPROLOL SUCCINATE (ER) 25 MG TAB.ER.24H PO SCH (05:09)
[2024-07-07] MEDS: amLODIPine 10 MG TAB PO SCH (05:09)
[2024-07-07] MEDS: allopurinoL 100 MG TAB PO SCH (05:10)
[2024-07-07] MEDS: EZETIMIBE 10 MG TAB PO SCH (05:10)
[2024-07-07] MEDS: LEVOTHYROXINE 137 MCG TAB PO SCH (05:14)
[2024-07-07] MEDS: CHOLECALCIFEROL 10 MCG (400 IU) TABLET PO SCH (05:14)
[2024-07-07] MEDS: LISINOPRIL-HCTZ 20-25 MG 1 EACH TAB PO SCH (05:14)
[2024-07-07] MEDS: SODIUM CHLORIDE 0.9% 1,000 ML in EMPTY BAG 1 BAG IV SCH ×2 (05:19→19:04)
[2024-07-07 07:02] LABS: Basophils % (A) 0 %; Eosinophils # (A) 0.1 k/uL (0-0.7); Eosinophils % (A) 2 %; HCT 42.9 % (39.0-53.0); HGB 14.4 gm/dL (13.0-17.5); Lymphocytes % (A) 17 %; MCH 29.2 pg (25.0-35.0); MCHC 33.5 g/dL (31.0-37.0); MCV 87.1 fL (80.0-100.0); Mean Platelet Volume 9.3; Monocytes # (A) 0.5 k/uL (0-1.0); Monocytes % (A) 8 %; Neutrophils # (A) 4.2 k/uL (1.3-7.7); Neutrophils % (A) 71 %; Platelet Count 178 k/uL (150-450); RBC 4.92 m/uL (4.30-5.90); RDW 15.1 % (11.5-15.5)
--- NOTE | 2024-07-07 07:14 | CA ---
Transthoracic Echo Report Name: Saji Almanzar Age: 79 Gender: M : 1945 Exam Date: 07/06/2024 13:29 Exam Location: [facility] Ht (in): 68 Wt (lb): 267 Ordering Physician: Regine Do Attending/Referring Phys: [id number], [employer] Account Manager Mariposa Rojas RDCS Procedure CPT: Indications: LVF Cardiac Hx: Technical Quality: Very technically difficult study Contrast 1: Definity Total Dose (mL): 2 Contrast 2: Total Dose (mL): MEASUREMENTS (Male / Female) Normal Values 2D ECHO LV Diastolic Diameter PLAX 5.8 cm 4.2 - 5.9 / 3.9 - 5.3 cm LV Systolic Diameter PLAX 3.9 cm IVS Diastolic Thickness 0.6 cm 0.6 - 1.0 / 0.6 - 0.9 cm LVPW Diastolic Thickness 1.0 cm 0.6 - 1.0 / 0.6 - 0.9 cm LV Relative Wall Thickness 0.3 LVOT Diameter 2.2 cm LV Diastolic Volume MOD BP 107.5 cm??? 67 - 155 / 56 - 104 cm??? LV Systolic Volume MOD BP 32.8 cm??? 22 - 58 / 19 - 49 cm??? LV Ejection Fraction MOD BP 69.5 % >= 55 % LV Cardiac Index MOD BP 2422.6 cm???/min???m??? LV Diastolic Volume MOD 4C 102.1 cm??? LV Systolic Volume MOD 4C 29.0 cm??? LV Ejection Fraction MOD 4C 71.6 % LV Cardiac Index MOD 4C 2370.4 cm???/min???m??? LV Diastolic Length 4C 7.9 cm LV Systolic Length 4C 5.8 cm LV Diastolic Volume MOD 2C 109.0 cm??? LV Systolic Volume MOD 2C 35.7 cm??? LV Ejection Fraction MOD 2C 67.2 % LV Cardiac Index MOD 2C 2376.2 cm???/min???m??? LV Diastolic Length 2C 8.2 cm LV Systolic Length 2C 6.0 cm LA Volume 53.1 cm??? 18 - 58 / 22 - 52 cm??? LA Volume Index 21.5 cm???/m??? 16 - 28 cm???/m??? DOPPLER AV Peak Velocity 168.6 cm/s AV Peak Gradient 11.4 mmHg AV Mean Velocity 118.0 cm/s AV Mean Gradient 6.2 mmHg AV Velocity Time Integral 31.0 cm LVOT Peak Velocity 113.9 cm/s LVOT Peak Gradient 5.2 mmHg LVOT Velocity Time Integral 20.9 cm LVOT Stroke Volume 80.6 cm??? LVOT Stroke Volume Index 34.9 ml/m??? LVOT Cardiac Index 2613.7 cm???/min???m??? AV Area Cont Eq vti 2.6 cm??? AV Area Cont Eq pk 2.6 cm??? MV Area PHT 3.4 cm??? Mitral E Point Velocity 52.8 cm/s Mitral A Point Velocity 87.7 cm/s Mitral E to A Ratio 0.6 MV Deceleration Time 223.3 ms FINDINGS Left Ventricle Left ventricular ejection fraction is estimated at 55-60 %. Left ventricular cavity size normal. Left ventricular wall thickness normal. No obvious regional wall motion abnormalities. Right Ventricle Right ventricle not well visualized. Unable to estimate the right ventricular systolic pressure. Right Atrium Right atrium not well visualized. Left Atrium Normal left atrial size. Mitral Valve Structurally normal mitral valve. No mitral stenosis, regurgitation or prolapse. Aortic Valve Aortic valve not well visualized. No aortic valve stenosis or regurgitation. Tricuspid Valve Structurally normal tricuspid valve. No tricuspid stenosis. No tricuspid regurgitation. Pulmonic Valve Pulmonic valve not well visualized. Pericardium No pericardial effusion. Aorta Aortic annulus normal. CONCLUSIONS Normal biventricular systolic function The pulmonary artery systolic pressure could not be calculated Overall normal intracardiac valves No pericardial effusion Previewed by: Dr. Mitchel Tobias MD (Electronically Signed) Final Date: 07 July 2024 07:13
[2024-07-07 08:17] LABS: African American GFR (CKD) >90 (>60 ml/min/1.73 sqM); Anion Gap 5 mmol/L; Blood Urea Nitrogen 15 mg/dL (9-20); Calcium 9.3 mg/dL (8.4-10.2); Carbon Dioxide 28 mmol/L (22-30); Chloride 104 mmol/L (98-107); Glucose 132 mg/dL (74-99); Non-African American GFR(CKD) 84 (>60 ml/min/1.73 sqM); Potassium 3.8 mmol/L (3.5-5.1); Sodium 137 mmol/L (137-145)
[2024-07-07] MEDS: CLOPIDOGREL 75 MG TAB PO STA (10:48)
--- NOTE | 2024-07-07 11:58 | P.PN ---
Subjective HISTORY OF PRESENT ILLNESS: This is a 79-year-old male who follows in the office with Dr. Turner. Patient underwent cardiac catheterization yesterday revealing severe two-vessel coronary artery disease. Circumflex coronary artery revealed mild nonobstructive disease. LAD with 95% stenosis just proximal to the second diagonal branch. At its worst it seems to be 90% stenosis and the blockage affects the ostial portion of the diagonal also. RCA reveals 99% stenosis involving the mid RCA. Vessel is calcified and just before its bifurcation into PDA and PLV there is a 70% stenosis noted. CT surgery was consulted for evaluation. Patient and his family decided they did not want to pursue surgical intervention. The patient is scheduled to undergo stenting today with Dr. River. At the time of examination, patient denies any chest pain or pressure. Denies any shortness of breath. Vital signs are stable. PHYSICAL EXAM: VITAL SIGNS: Reviewed. GENERAL: Well-developed in no acute distress. NECK: Supple. No JVD or thyromegaly LUNGS: Respirations even and unlabored. Lungs essentially clear to auscultation bilaterally. HEART: Regular rate and rhythm. S1 and S2 heard. EXTREMITIES: Normal range of motion. No clubbing or cyanosis. Peripheral pulses intact. 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 Patient to undergo repeat cath today with stenting by Dr. River Further recommendations pending patient course Nurse practitioner note has been reviewed by physician. Signing provider agrees with the documented findings, assessment, and plan of care documented by [employer] as a scribe. Objective - Vital Signs Vital signs: Vital Signs Temp 97.7 F 07/07/24 08:50 Pulse 56 L 07/07/24 10:50 Resp 18 07/07/24 10:50 BP 130/71 07/07/24 10:50 Pulse Ox 95 07/07/24 10:50 FiO2 Intake & Output 07/06/24 07/07/24 07/07/24 18:59 06:59 18:59 Intake Total 300 Balance 300 Weight 121.4 kg 118.3 kg Intake: IV 300 Other: Voiding Method Toilet Toilet # Voids 1 4 - Labs CBC & Chem 7: 07/07/24 06:25 07/07/24 06:25 Labs: Abnormal Lab Results - Last 24 Hours (Table) 07/07/24 Range/Units 06:25 Glucose 132 H (74-99) mg/dL
[2024-07-07] MEDS: polyethylene glycoL 3350 17 GM POWD.PACK PO SCH (14:41)
[2024-07-07] MEDS: HEPARIN SODIUM,PORCINE (1 ML) 2,500 UNIT in SODIUM CHLORIDE 0.9% 250 ML IRRIGATION PRN (14:48)
[2024-07-07] MEDS: SODIUM CHLORIDE 0.9% 1,000 ML IV ONE (14:48)
[2024-07-07] MEDS: HEPARIN SODIUM,PORCINE 10,000 UNIT in SODIUM CHLORIDE 0.9% 1,000 ML IRRIGATION PRN (14:48)
[2024-07-07] MEDS: MIDAZOLAM 2 MG/2 ML VIAL IVP ONE (14:54)
[2024-07-07] MEDS: fentaNYL (PF) 50 MCG/ML 2 ML AMP IVP ONE (14:55)
[2024-07-07] MEDS: LIDOCAINE 1% INJ 10MG/ML (20 ML MDV) SQ ONE (14:58)
[2024-07-07] MEDS: VERAPAMIL SYRINGE (5 MG/10 ML) INTRAARTER ONE (14:59)
[2024-07-07] MEDS: HEPARIN SODIUM 1,000 UN/ML (10ML VL) IVP ONE ×2 (15:00→15:20)
[2024-07-07] MEDS: NITROGLYCERIN 1000MCG/10ML SYRINGE INTRACORON ONE ×2 (15:11→15:22)
[2024-07-07 15:44] LABS: Glucose,Whole Blood 114 mg/dL (70-110)
--- NOTE | 2024-07-07 15:51 | P.PRCINT ---
Percutaneous Coronary Int. - Percutaneous Coronary Intervention Percutaneous Coronary Intervention: PROCEDURES PERFORMED: Right coronary angiography, ultrasound guided arterial access, IVUS RCA, PCI mid RCA with a 4.0 x 23mm Xience TONJA, post dilated with a 4.0mm NC balloon, Shockwave lithotripsy with a 3.5mm balloon INDICATION: CAD, NYHA class 3 symptoms CONSENT:I have discussed the risks, benefits and alternative therapies for the above-mentioned procedure and for both sedation/analgesia as well as necessary blood product administration, if indicated, as they pertain to this patient. The patient has indicated understanding and acceptance of the risks and procedures discussed. PROCEDURE: After the risks, benefits and alternatives of the above mentioned procedure explained in detail with the patient, informed consent was obtained. Patient was taken to the catheterization lab and prepped and draped in usual fashion. Ultrasound guidance was used to assess for arterial access. 1% lidocaine was used to anesthetize the right radial artery. A 6-German sheath was placed in the right radial artery using modified Seldinger technique and ultrasound guidance. Patient had been evaluated by cardiothoracic surgery for possible bypass and decision was made to perform PCI. A 6-German AL 0.75 guide was used to engage the RCA. Heparin was given. A 0.014 BMW wire was advanced to the distal PDA. Predilation was performed with a 3.5 mm balloon. Intravascular ultrasound showed reference vessel 3.5-4.0 mm however diffuse disease throughout the entire artery representing more intimal 3.5 mm vessel. There was significant calcification at the lesion. Therefore decision was made to perform lithotrips y. Shock wave lithotripsy was performed with a 3.5 mm balloon. Next a 4.0 x 23 mm drug-eluting stent was advanced to the mid RCA. The stent was postdilated with a 4.0 mm noncompliant balloon. Final angiograms were performed. Preintervention there was 95% stenosis and CHAR-3 flow and postintervention there was less than 10% stenosis with CHAR 3 flow. The right radial sheath was removed and a TR band was placed with hemostasis achieved. The patient tolerated the procedure well. Patient was transported back to the post catheterization holding area in stable condition. Conscious Sedation: Patient was monitored under the direct supervision of myself for conscious sedation using Versed and fentanyl for a total duration of 45 minutes HEMODYNAMICS: Ao: 139/81 SELECTIVE CORONARY ARTERIOGRAPHY: LEFT MAIN: Not imaged, see separate report LEFT ANTERIOR DESCENDING CORONARY ARTERY: Not imaged, see separate report LEFT CIRCUMFLEX CORONARY ARTERY: Not imaged, see separate report RIGHT CORONARY ARTERY: The right coronary artery is a large caliber vessel which gives off a PDA and PLV branch and is the dominant vessel. There is diffuse mild 20% stenosis with more focal mid RCA 95% stenosis. There is bifurcation PDA/PLV 60% stenosis. FINAL IMPRESSION: 1. CAD as described above including 95% mid RCA stenosis, 60% bifurcation PDA/PLV stenosis 2. Status post PCI mid RCA with a 4.0 x 23mm Xience TONJA, post dilated with a 4.0mm NC balloon PLAN: 1. Aggressive risk factor modification per most recent ACC/AHA guidelines. 2. Continue dual antiplatelets for 6 months with aspirin and Plavix. May consider staged PCI of LAD if still symptomatic.
[2024-07-07] MEDS: IOPAMIDOL-370 100ML BTL INJ ONE ×2 (15:52)
[2024-07-07] MEDS ORDERED: RX INFO: IV CONTRAST WAS GIVEN 1 EACH MISC MISCELLANE PRN (15:57)
[2024-07-07] MEDS ORDERED: MAG HYDROX/AL HYDROX/SIMETH 30 ML CUP PO PRN (15:57)
[2024-07-07] MEDS ORDERED: ATROPINE SULFATE 0.1 MG/ML 10ML SYRINGE IV PRN (15:57)
[2024-07-07] MEDS ORDERED: ZOLPIDEM 5 MG TAB PO PRN (15:57)
[2024-07-08 07:54] LABS: Basophils % (A) 0 %; Eosinophils # (A) 0.1 k/uL (0-0.7); Eosinophils % (A) 1 %; HCT 41.2 % (39.0-53.0); HGB 13.6 gm/dL (13.0-17.5); Lymphocytes # (A) 0.8 k/uL (1.0-4.8); Lymphocytes % (A) 15 %; MCH 28.7 pg (25.0-35.0); MCHC 32.9 g/dL (31.0-37.0); MCV 87.3 fL (80.0-100.0); Mean Platelet Volume 8.7; Monocytes # (A) 0.5 k/uL (0-1.0); Monocytes % (A) 9 %; Neutrophils % (A) 73 %; Platelet Count 158 k/uL (150-450); RBC 4.72 m/uL (4.30-5.90); RDW 14.6 % (11.5-15.5); WBC 5.5 k/uL (3.8-10.6)
[2024-07-08 08:04] VITALS: BP 144/72; PULSE 61; RESP 18; TEMP 97.1
[2024-07-08] MEDS: CLOPIDOGREL 75 MG TAB PO SCH (08:06)
[2024-07-08] MEDS: ASPIRIN 81 MG PO SCH (08:06)
[2024-07-08 08:08] LABS: African American GFR (CKD) >90 (>60 ml/min/1.73 sqM); Anion Gap 5 mmol/L; Blood Urea Nitrogen 15 mg/dL (9-20); Calcium 8.8 mg/dL (8.4-10.2); Carbon Dioxide 28 mmol/L (22-30); Chloride 106 mmol/L (98-107); Glucose 100 mg/dL (74-99); Non-African American GFR(CKD) >90 (>60 ml/min/1.73 sqM); Potassium 3.6 mmol/L (3.5-5.1); Sodium 139 mmol/L (137-145)
--- NOTE | 2024-07-08 11:39 | P.DS ---
Providers Date of admission: 07/06/24 06:08 Attending physician: Yogi Sheth Consults: 07/06/24 09:07 Consult Physician Routine Consulting Provider: Brandan Griffin Consult Reason/Comments: CAD, CABG eval Do you want consulting provider notified?: Yes 07/07/24 15:57 Consult Physician Routine Consulting Provider: [facility] Consult Reason/Comments: Post Interventional Patient Do you want consulting provider notified?: Already Contacted Primary care physician: [facility] Hospital Course: This is a 79-year-old male who follows in the office with Dr. Sheth. Patient underwent cardiac catheterization yesterday revealing severe two-vessel coronary artery disease. Circumflex coronary artery revealed mild nonobstructive disease. LAD with 95% stenosis just proximal to the second diagonal branch. At its worst it seems to be 90% stenosis and the blockage affects the ostial portion of the diagonal also. RCA reveals 99% stenosis involving the mid RCA. Vessel is calcified and just before its bifurcation into PDA and PLV there is a 70% stenosis noted. CT surgery was consulted for evaluation. Patient and his family decided they did not want to pursue surgical intervention. The patient is scheduled to undergo stenting today with Dr. River. At the time of examination, patient denies any chest pain or pressure. Denies any shortness of breath. Vital signs are stable. 07/08/2024 Patient examined this morning at the bedside. He underwent stenting of the RCA yesterday with Dr. River. Patient denies any chest pain or pressure. Denies any shortness of breath. The patient was deemed stable for discharge home today from a cardiac standpoint. Patient requesting 10-day supply of his medications to be sent to [facility] pharmacy on and then additional prescriptions to be sent to the [place]. The patient will be continued on dual antiplatelet therapy with aspirin and Plavix for 6 months. Patient with statin intolerance. Patient will be continued on Zetia. 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 Signing provider agrees with the documented findings, assessment, and plan of care documented by GIG TENDER as a scribe. Plan - Discharge Summary Discharge Rx Participant: No New Discharge Prescriptions: New Clopidogrel [Plavix] 75 mg PO DAILY #10 tab Aspirin 81 mg PO DAILY #90 tab Ezetimibe [Zetia] 10 mg PO DAILY #90 tab Aspirin 81 mg PO DAILY #10 tab Ezetimibe [Zetia] 10 mg PO DAILY #10 tab Clopidogrel [Plavix] 75 mg PO DAILY #90 tablet Continue amLODIPine [Norvasc] 10 mg PO QAM Lisinopril-Hctz 20-25 mg [Zestoretic 20-25] 1 tab PO QAM Nitroglycerin Sl Tabs [Nitrostat] 0.4 mg SUBLINGUAL Q5M PRN PRN Reason: Chest Pain Metoprolol Succinate (ER) [Toprol XL] 25 mg PO DAILY Isosorbide Mononitrate ER [Imdur] 30 mg PO QAM Discontinued Acetaminophen Tab [Tylenol] 325 mg PO Q6H PRN PRN Reason: Fever And/ Or Pain No Action Albuterol Inhaler [Ventolin Hfa Inhaler] 2 puff INHALATION RT-QID PRN PRN Reason: Shortness Of Breath levETIRAcetam [Keppra] 750 mg PO BID Cholecalciferol [Vitamin D3 (10 Mcg = 400 Iu)] 10 mcg PO QAM polyethylene glycoL 3350 [Miralax] 17 gm PO DAILY Docusate [Colace] 100 mg PO TID PRN PRN Reason: Constipation Ketoconazole 2% Cream [Nizoral 2%] 1 applic TOPICAL BID oxyCODONE HCL [OxyIR] 5 - 10 mg PO Q6H PRN PRN Reason: Pain Lactose-Reduced Food [Ensure Plus] 1 can PO BID Levothyroxine Sodium [Synthroid] 137 mcg PO AC-BRKFST Aluminum Chloride Hexahydrate 20% Topical Solution 1 applic TOPICAL DAILY Naloxone HCl [Narcan] 4 mg NASAL DIRECTED PRN PRN Reason: Opioid Reversal allopurinoL 200 mg PO QAM Milk Thistle 300 mg PO QAM Discharge Medication List Albuterol Inhaler [Ventolin Hfa Inhaler] 2 puff INHALATION RT-QID PRN 09/06/15 [History] amLODIPine [Norvasc] 10 mg PO QAM 03/05/17 [History] levETIRAcetam [Keppra] 750 mg PO BID 09/19/20 [History] Lactose-Reduced Food [Ensure Plus] 1 can PO BID 07/28/23 [History] oxyCODONE HCL [OxyIR] 5 - 10 mg PO Q6H PRN 07/28/23 [History] Aluminum Chloride Hexahydrate 20% Topical Solution 1 applic TOPICAL DAILY 06/12/24 [History] Cholecalciferol [Vitamin D3 (10 Mcg = 400 Iu)] 10 mcg PO QAM 06/12/24 [History] Docusate [Colace] 100 mg PO TID PRN 06/12/24 [History] Ketoconazole 2% Cream [Nizoral 2%] 1 applic TOPICAL BID 06/12/24 [History] Levothyroxine Sodium [Synthroid] 137 mcg PO AC-BRKFST 06/12/24 [History] Lisinopril-Hctz 20-25 mg [Zestoretic 20-25] 1 tab PO QAM 06/12/24 [History] Naloxone HCl [Narcan] 4 mg NASAL DIRECTED PRN 06/12/24 [History] allopurinoL 200 mg PO QAM 06/12/24 [History] polyethylene glycoL 3350 [Miralax] 17 gm PO DAILY 06/12/24 [History] Isosorbide Mononitrate ER [Imdur] 30 mg PO QAM 07/03/24 [History] Milk Thistle 300 mg PO QAM 07/03/24 [History] Nitroglycerin Sl Tabs [Nitrostat] 0.4 mg SUBLINGUAL Q5M PRN 07/03/24 [History] Metoprolol Succinate (ER) [Toprol XL] 25 mg PO DAILY 07/06/24 [History] Aspirin 81 mg PO DAILY #10 tab 07/08/24 [Rx] Aspirin 81 mg PO DAILY #90 tab 07/08/24 [Rx] Clopidogrel [Plavix] 75 mg PO DAILY #10 tab 07/08/24 [Rx] Clopidogrel [Plavix] 75 mg PO DAILY #90 tablet 07/08/24 [Rx] Ezetimibe [Zetia] 10 mg PO DAILY #10 tab 07/08/24 [Rx] Ezetimibe [Zetia] 10 mg PO DAILY #90 tab 07/08/24 [Rx] Follow up Appointment(s)/Referral(s): Yogi Sheth MD [STAFF PHYSICIAN] - 07/14/24 2:00 pm (POST HOSPITAL FOLLOW UP APPOINTMENT MADE ) Patient Instructions/Handouts: Moderate Sedation (DC), After Radial Heart Catheterization (GEN), Left Heart Catheterization (DC)
== END 2024-07-08 13:28 | disposition home or self-care (01) ==
LOC: CATHCVL 06:07 → 3SCARD 06:08 → CATHCVL 06:08 → 3SCARD 13:15
PROVIDERS: ADMIT Internal Medicine Cardiovascular Disease; ATTEND Internal Medicine Cardiovascular Disease
DX: I25.119 Atherosclerotic heart disease of native coronary artery with unspecified angina pectoris (principal); I10 Essential (primary) hypertension; E78.5 Hyperlipidemia, unspecified; J44.9 Chronic obstructive pulmonary disease, unspecified; E03.9 Hypothyroidism, unspecified; Z79.890 Hormone replacement therapy; Z79.899 Other long term (current) drug therapy; Z87.891 Personal history of nicotine dependence; Z85.810 Personal history of malignant neoplasm of tongue; Z92.3 Personal history of irradiation; Z82.49 Family history of ischemic heart disease and other diseases of the circulatory system
CPT/HCPCS: 93306; 92978; 93458; 92972; 80048 ×2; 85025 ×2; G0378 ×2; C9600; C1769 ×3; C1887; C1894 ×2; C1725 ×2; C1753; C1874; C1761; J2250 ×2; J1644 ×6; J2003 ×2; J3010 ×2; Q9957; Q9967 ×2; J2305

== ENCOUNTER → 2024-08-31 | Outpatient (CLI) | payer OTHER ==
--- NOTE | 2024-08-31 13:03 | PE ---
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 Images are reviewed on the computer in the coronal , axial, and sagittal planes. Reconstructed rotating images are created on independent workstation a nd reviewed on the computer. A non-contrast CT is performed in conjunction with the PET scan. Gluco se level 100 mg/dL CT DLP: 1278.84 mGycm, Automated exposure control for dose reduction was used. COMPARISON: CT None, PET/CT 04/20/2024, 12/16/2023, 06/24/2023, 03/27/2023, 12/25/2022, 09/11/2022, 05/01/2022, MRI: 10/01/2022 FINDINGS: Mediastinal SUV mean is 2.1. Hepatic parenchyma SUV mean is 3.0. SKULL BASE AND NECK: Redemonstration of FDG activity within known pituitary mass demonstrating a maximum SUV of 24.8, prev iously 21.3. Posttreatment changes of the left tongue base redemonstrated without suspicious radiotracer activity. No other suspicious radiotracer activity. CHEST, MEDIASTINUM, AND HILAR REGION: Left perihilar focal radiotracer uptake with a maximum SUV of 7.6, previously 4.6, 4.6. Additional left inferior perihilar focal radiotracer uptake with a maximum SUV of 5.2, previously 3.7 . ABDOMEN AND PELVIS: No suspicious radiotracer activity. MUSCULOSKELETAL STRUCTURES: No suspicious radiotracer activity. OTHER CT: Aplasia of the bilateral frontal sinuses. Atherosclerosis of the carotid bifurcations. Righ t chest wall Dqabsg-[id number] terminating at the superior vena cava. Atherosclerosis of the coronary art eries. Mild cardiomegaly. Bilateral lower lobe linear atelectasis. Favor bilateral renal vascular ludwig cifications. Atherosclerotic calcification of the aorta and its branches. Fat-containing umbilical he rnia. Scattered colonic diverticula. Multilevel degenerative changes of the spine. Ectasia of the inf rarenal abdominal aorta measuring up to 2.8 cm. IMPRESSION: 1. Increased focal radiotracer uptake within the left perihilar region concerning for metastatic lym ph node versus reactive lymph node. Additional mild radiotracer uptake within the left inferior perih ilar region which also may represent a metastatic lymph node versus reactive lymph node. Attention on follow-up exam. Posttreatment changes to the left tongue base without suspicious radiotracer uptake. No other new sites of radiotracer uptake. 2. Redemonstration of focal FDG uptake within known pituitary mass. Previously characterized as a ma croadenoma. [facility], , 08/31/2024 1:01 PM
== END | disposition home or self-care (01) ==
LOC: RADPETMAIN 08:03
PROVIDERS: ATTEND Internal Medicine Hematology & Oncology
DX: C76.0 Malignant neoplasm of head, face and neck (principal); D35.2 Benign neoplasm of pituitary gland; I77.819 Aortic ectasia, unspecified site; K42.9 Umbilical hernia without obstruction or gangrene; I70.0 Atherosclerosis of aorta; J98.11 Atelectasis
CPT/HCPCS: 78815; A9552

== ENCOUNTER → 2024-11-23 | Outpatient (CLI) | payer OTHER ==
--- NOTE | 2024-11-24 08:11 | PE ---
EXAMINATION TYPE: PET CT fusion skull to thigh DATE OF EXAM: 11/23/2024 COMPARISON: Prior PET/CT August 31, 2024 and older studies. HISTORY: C76.0 HEAD AND NECK CANCER TECHNIQUE: Following the intravenous administration of 11.86 mCi of F-18 FDG, whole body images are performed from the skull base to the midthigh. Images are reviewed on the computer in the coronal, a xial, and sagittal planes. Reconstructed rotating images are created on independent workstation and reviewed on the computer. A localization and attenuation correction CT is performed in conjunction with the PET scan. Blood glucose level equals 132. Dedicated PET/CT of the head and neck is also perf ormed. SCAN: Subsequent Scan FINDINGS: HEAD AND NECK: Persistent increased hypermetabolic uptake corresponding to known pituitary mass, max SUV is 18.78 versus 24.8 on prior. Persistent posttreatment change at the base of tongue without new areas of abnormal hypermetabolic up take. No new areas of abnormal hypermetabolic uptake in the head or neck region. CHEST, MEDIASTINUM, AND HILAR REGION: Left perihilar hypermetabolic uptake measured up to 7.6 on prio r now measures Max SUV 5.66 on axial image 90. No new areas of abnormal hypermetabolic uptake. ABDOMEN AND PELVIS: No new areas of abnormal hypermetabolic uptake. Normal excretion. OSSEOUS STRUCTURES: No new areas of abnormal hypermetabolic uptake. OTHER CT: Moderate calcified plaque bilateral carotid bulb level is redemonstrated. Stable right inte rnal jugular Mediport catheter. [id number] coronary artery calcifications and/or stents are r edemonstrated. Persistent cardiomegaly with tiny posterior pericardial effusion. Large fat-containing umbilical hernia is redemonstrated. Sigmoid colonic diverticula are redemonstrat ed. Multilevel facet arthropathy in the lower lumbar spine redemonstrated. IMPRESSION: Overall positive treatment response left hilar region. No new areas of abnormal hypermeta bolic uptake noted. [facility], , 11/24/2024 8:09 AM
== END | disposition home or self-care (01) ==
LOC: RADPETMAIN 08:51
PROVIDERS: ATTEND Internal Medicine Hematology & Oncology
DX: C76.0 Malignant neoplasm of head, face and neck (principal); K57.30 Diverticulosis of large intestine without perforation or abscess without bleeding
CPT/HCPCS: 78815; A9552

== ENCOUNTER → 2025-03-19 | Outpatient (CLI) | payer OTHER ==
[2025-03-19 12:39] LABS: African American GFR (CKD) >90 (>60 ml/min/1.73 sqM); Blood Urea Nitrogen 21 mg/dL (9-20); Non-African American GFR(CKD) 85 (>60 ml/min/1.73 sqM)
--- NOTE | 2025-03-19 13:42 | CT ---
EXAMINATION TYPE: CT chest w con CT DLP: 592.4 mGycm, Automated exposure control for dose reduction was used. DATE OF EXAM: 03/19/2025 1:03 PM COMPARISON: PET/CT 11/23/2024. CLINICAL INDICATION:Male, 79 years old with history of C76.0 MALIGNANT NEOPLASM OF HEAD, FACE AND NEC K; PHH, Malignant neoplasm was surgically removed, cancer had spread to lungs TECHNIQUE: Multiple axial images were obtained through the chest. Sagittal and coronal reformats were created for review. Contrast used:100 mL of Isovue 300 with IV Contrast (None if empty) Oral contrast used: (None if empty) FINDINGS: LUNGS/ PLEURA: There are scattered lung parenchymal cysts. Lingular and left lung base atelectatic ch anges. No focal consolidations, pleural effusions or pneumothorax. There is a 1 to 2 mm subpleural no dule noted along the posterior aspect of the right lower lobe. AIRWAY: Patent and unremarkable. HEART: The heart is mildly enlarged.Advanced coronary artery atherosclerotic changes. MEDIASTINUM: There is a soft tissue lesion seen in the left perihilar region measuring up to 2.7 x 1. 5 cm corresponding to a FDG avid finding on the PET CT in reference. Nonenlarged lymph node is seen i n the right hilar space measuring up to 9 mm in short axis. VASCULATURE: No aortic aneurysm. Right chest Tukbek-k-Emyy catheter is seen with distal tip terminat ing in the superior vena cava. MUSCULOSKELETAL: No acute osseous abnormalities SOFT TISSUES: Unremarkable. LOWER NECK: No significant findings on this limited view of the neck. UPPER ABDOMEN: No significant findings. IMPRESSION: 1. There is a soft tissue lesion seen in the left perihilar region measuring up to 2.7 cm correspondi ng to FDG avid finding on the PET CT in reference likely corresponding to primary or secondary malign ant process. No other suspicious findings within the thorax. 2. Limited evaluation of the lower neck. If suspicion for neck disease is present consider a dedicate d CT neck. 3. Mild cardiomegaly. 4. Advanced coronary artery atherosclerotic disease. [facility], , 03/19/2025 1:40 PM
== END | disposition home or self-care (01) ==
LOC: RADCTMAIN 11:55
PROVIDERS: ATTEND Internal Medicine Hematology & Oncology
DX: C76.0 Malignant neoplasm of head, face and neck (principal); I25.10 Atherosclerotic heart disease of native coronary artery without angina pectoris; E03.9 Hypothyroidism, unspecified; I10 Essential (primary) hypertension; D49.7 Neoplasm of unspecified behavior of endocrine glands and other parts of nervous system; R21 Rash and other nonspecific skin eruption; I51.7 Cardiomegaly; Z71.3 Dietary counseling and surveillance
CPT/HCPCS: 82565; 84520; 71260; 36415; Q9967